=== PATIENT | male | born 1955 | race Caucasian/White ===

== ENCOUNTER 2016-06-02 13:16 | Inpatient (IN) ==
[2016-06-02] MEDS ORDERED: methylPREDNISolone 125 MG/2 ML VIAL IVP ONE (13:20)
[2016-06-02] MEDS ORDERED: Ipratropium/Albuterol Neb 3 ML IH ONE (13:20)
--- NOTE | 2016-06-02 13:23 | Emergency Department Note ---
Disposition Clinical Impression: COPD with acute exacerbation Disposition: Admitted As Inpatient Condition: Fair Referrals: NO,PCP [Primary Care Provider] - Forms: ED Satisfaction Letter Time of Disposition: 15:19 SOB HPI - General Chief Complaint: ED Shortness of Breath/Dyspnea Stated Complaint: KHADAR Time Seen by Provider: 06/02/16 13:19 Source: EMS Mode of arrival: EMS Limitations: no limitations Nursing Notes Reviewed: Yes Vital Signs Reviewed: Yes - History of Present Illness 60-year-old with a history of severe COPD who was discharged from [facility] yesterday after 2-3 day stay for COPD exacerbation comes in with increasing shortness of breath. Squad notes that he was hypoxic very anxious When they picked him up after treatment he did calm down somewhat. Still obviously short of breath. Pt Subjective Complaint: shortness of breath Onset (ago): Just [employer] Context: recent illness Severity: moderate, severe Consistency/Duration: constant Improves with: nothing Worsens with: exertion Known history of: COPD Associated symptoms: Reports: cough, wheezing. Denies: chest pain Treatment prior to arrival: oxygen, bronchodilator Cough present: Yes Cough Description: Involuntary Cough Frequency: Intermittent - Related Data Home Medications Medication Instructions Recorded Confirmed Budesonide/Formoterol 160/4.5 2 puff IH BID 04/07/15 03/01/16 [Symbicort 160/4.5] Roflumilast [Daliresp] 500 mcg PO DAILY 04/07/15 05/29/16 Tiotropium [Spiriva] 1 puff IH DAILY 04/07/15 03/01/16 LORazepam [Ativan] 0.5 mg PO BID 04/26/15 05/29/16 Montelukast [Singulair] 10 mg PO DAILY 04/26/15 05/29/16 Albuterol Sulfate [Ventolin Hfa] 2 puff IH Q4H PRN 03/01/16 05/29/16 Azithromycin [Zithromax] 250 mg PO 3XW MDD 03/01/16 05/29/16Wednesday,wednesday,wednesday Cetirizine HCl [All Day Allergy] 10 mg PO DAILY 03/01/16 03/01/16 Dicyclomine [Bentyl] 10 mg PO QID 03/01/16 03/01/16 Furosemide [Lasix] 20 mg PO DAILY 03/01/16 03/01/16 Hydrochlorothiazide 12.5 mg PO DAILY 03/01/16 05/29/16 Ipratropium [place] 1 spray NS BID 03/01/16 05/29/16 Levalbuterol HCl [Xopenex Neb] 1.25 mg IH Q8H 03/01/16 05/29/16 Potassium Chloride [Klor-Con 10] 10 meq PO BID 03/01/16 05/29/16 Previous Rx's Medication Instructions Recorded Albuterol Neb [Proventil Neb] 2.5 mg IH [id number] 30 Days 04/29/15 Dicyclomine [Bentyl] 10 mg PO QID #20 capsule 03/30/16 Loratadine [Claritin] 5 mg PO DAILY #30 tablet 03/30/16 Benzocaine/Menthol [place] [Cepacol 1 each MM Q2H PRN #1 pack 06/01/16 Sore Throat Lozenge] Chloraseptic [place] [Chloraseptic] 1 spray MM QID PRN #1 bottle 06/01/16 PredniSONE 10 mg PO BIDWM #10 tablet 06/01/16 Tramadol HCl [Ultram] 50 mg PO QID PRN #20 tab 06/01/16 Allergies Allergy/AdvReac Type Severity Reaction Status Date / Time Penicillins [PCN] Allergy Vomiting Verified 03/30/16 15:03 Constitutional: Denies: fever, chills, weakness, weight change Eyes: Denies: eye pain, eye discharge, vision change ENT ED: Denies: ear pain, throat pain, dental pain, hearing loss, epistaxis, congestion, dysphagia Cardiovascular: Denies: chest pain, palpitations, dyspnea on exertion, edema, syncope Respiratory: Reports: cough, dyspnea, wheezes. Denies: hemoptysis, stridor Gastrointestinal: Denies: abdominal pain, nausea, vomiting, diarrhea, constipation, hematemesis, melena, hematochezia Genitourinary: Denies: urgency, dysuria, frequency, hematuria Musculoskeletal: Denies: back pain, neck pain, arthralgia, myalgia Integumentary: Denies: rash, abrasion, lesions Neurological: Denies: headache, weakness, numbness, paresthesias, confusion, abnormal gait, vertigo Psychiatric: Denies: anxiety, depression, suicidal thoughts, homicidal thoughts , auditory hallucinations, visual hallucinations Endocrine: Denies: fatigue Hematological/Lymphatic: Denies: easy bleeding, easy bruising Allergic/Immunologic: Denies: facial swelling, urticaria Past Medical History - Past Medical History Medical history: Reports: arthritis, asthma, COPD, thyroid disease, other Surgical history: Reports: no surgical history Psychiatric history: Reports: anxiety - Social History Smoking Status: Former smoker Smokeless Tobacco Status: No Alcohol use: Reports: none Drug use: Reports: none Physical Exam - General Limitations: no limitations General appearance: alert, in no apparent distress - Head Head exam: atraumatic, normocephalic, normal inspection - Eye Eye exam: Present: normal appearance, PERRL, EOMI - ENT ENT exam: normal exam, normal oropharynx, mucous membranes moist - Neck Neck exam: Present: normal inspection, full ROM, trachea midline - Chest Chest inspection: Present: normal inspection, symmetric chest wall rise - Respiratory Respiratory exam: Present: respiratory distress, wheezes, accessory muscle use, prolonged expiratory phase - Cardiovascular Cardiovascular exam: Present: regular rate, normal rhythm, normal heart sounds - Abdominal Exam Abdominal exam: Present: soft, Non-Tender. Absent: tenderness, distention, guarding, rebound, rigidity - Extremities Exam Extremities exam: Present: normal inspection, full ROM. Absent: tenderness, pedal edema - Expanded Lower Extremity Exam Neurovascular/Tendon exam: Absent: motor deficit, sensory deficit, tendon deficit Gait: not tested/not observed - Back Exam Back exam: Present: normal inspection, full ROM. Absent: tenderness - Neurological Exam Neurological exam: Present: alert, oriented X3 - Psychiatric Psychiatric exam: Present: normal affect, normal mood - Skin Skin exam: Present: warm, dry, intact, normal color Course - Reevaluation(s) Reevaluation #1: 60-year-old with a history of COPD comes in complaining of increasing shortness of breath working pretty hard on arrival. Patient was just discharged from [facility] yesterday. Patient was given breathing treatment and steroids here had some improvement but continued to work pretty hard at breathing. He will admit for COPD exacerbation. Time: 15:20 - Consultations Consultation #1: Discussed with Dr. Gomez, admit. Time: 15:19 Vital Signs Respiratory Rate 13 06/02/16 13:41 O2 Sat by Pulse Oximetry 94 L 06/02/16 13:41 Pulse Rate 97 06/02/16 14:59 Respiratory Rate 20 06/02/16 14:59 Blood Pressure 143/75 06/02/16 14:59 O2 Sat by Pulse Oximetry 96 06/02/16 14:59 Shortness of Breath/Dyspnea - Lab Data Lab results reviewed: Yes I reviewed the patient's lab results. Result diagrams: 06/02/16 13:34 06/02/16 13:34 Lab Results 06/02/16 06/02/16 06/02/16 Range/Units 13:34 13:34 13:34 WBC 8.2 (4.3-11.1) K/mcL RBC 4.30 (4.19-5.50) M/mcL Hgb 13.8 D (12.9-16.9) g/dL Hct 42.5 (37.5-50.1) % MCV 98.8 (83.0-100.0) fL MCH 32.1 (28.0-33.3) pg MCHC 32.5 (31.6-35.5) g/dL RDW 12.9 (11.5-14.5) % Plt Count 264 (140-400) K/mcL MPV 8.8 L (9.4-12.4) fL Immature Gran % 0.4 (0-4) % Seg Neutrophils % 87.6 % Lymphocytes % 8.0 % Monocytes % 3.9 % Eosinophils % 0.0 % Basophils % 0.1 % Neutrophils # 7.2 (1.6-8.9) K/mcL Lymphocytes # 0.7 (0.6-4.6) K/mcL Monocytes # 0.3 (0.0-1.3) K/mcL Eosinophils # 0.0 (0.0-0.6) K/mcL Basophils # 0.0 (0.0-0.2) K/mcL Sodium 140 (136-145) mEq/L Potassium 4.5 (3.5-4.5) mEq/L Chloride 99 (98-109) mEq/L Carbon Dioxide 32 H (19-29) mEq/L BUN 24 (8-26) mg/dL Creatinine 0.82 (0.72-1.25) mg/dL Est GFR ( Amer) > 60 (> 60) Est GFR (Non-Af Amer) > 60 (> 60) BUN/Creatinine Ratio 29 H (6-26) Glucose 147 H (70-99) mg/dL Calculated Osmolality 297 (280-300) Calcium 10.6 (8.6-10.8) mg/dL Troponin I 0.00 (0-0.03) ng/mL B-Natriuretic Peptide (0-100) pg/mL 06/02/16 Range/Units 13:34 WBC (4.3-11.1) K/mcL RBC (4.19-5.50) M/mcL Hgb (12.9-16.9) g/dL Hct (37.5-50.1) % MCV (83.0-100.0) fL MCH (28.0-33.3) pg MCHC (31.6-35.5) g/dL RDW (11.5-14.5) % Plt Count (140-400) K/mcL MPV (9.4-12.4) fL Immature Gran % (0-4) % Seg Neutrophils % % Lymphocytes % % Monocytes % % Eosinophils % % Basophils % % Neutrophils # (1.6-8.9) K/mcL Lymphocytes # (0.6-4.6) K/mcL Monocytes # (0.0-1.3) K/mcL Eosinophils # (0.0-0.6) K/mcL Basophils # (0.0-0.2) K/mcL Sodium (136-145) mEq/L Potassium (3.5-4.5) mEq/L Chloride (98-109) mEq/L Carbon Dioxide (19-29) mEq/L BUN (8-26) mg/dL Creatinine (0.72-1.25) mg/dL Est GFR ( Amer) (> 60) Est GFR (Non-Af Amer) (> 60) BUN/Creatinine Ratio (6-26) Glucose (70-99) mg/dL Calculated Osmolality (280-300) Calcium (8.6-10.8) mg/dL Troponin I (0-0.03) ng/mL B-Natriuretic Peptide 22 (0-100) pg/mL - Radiology Data Radiology results reviewed: Yes I reviewed the patient's radiology results. Chest X-Ray 06/02/16 13:20 IMPRESSION: 1. No active pulmonary disease. 2. COPD. D/ / Alfonzo Becerril MD / Alfonzo Becerril MD Interpreting Provider: Alfonzo Becerril MD - EKG Data EKG attestation: Yes I reviewed and interpreted this EKG. EKG shows normal: Reports: sinus rhythm Rate: Reports: tachycardia Rhythm: Reports: NSR Interpretation: Reports: no acute changes
[2016-06-02 13:41] LABS: Basophils % 0.1 %; Hematocrit 42.5 % (37.5-50.1); Hemoglobin 13.8 g/dL (12.9-16.9); Immature Granulocytes % 0.4 % (0-4); Lymphocytes # 0.7 K/mcL (0.6-4.6); Mean Corpuscular HGB Conc 32.5 g/dL (31.6-35.5); Mean Corpuscular Hemoglobin 32.1 pg (28.0-33.3); Mean Corpuscular Volume 98.8 fL (83.0-100.0); Mean Platelet Volume 8.8 fL (9.4-12.4); Monocytes # 0.3 K/mcL (0.0-1.3); Monocytes % 3.9 %; Neutrophils # 7.2 K/mcL (1.6-8.9); Platelet Count 264 K/mcL (140-400); Red Cell Distribution Width 12.9 % (11.5-14.5); Segmented Neutrophils % 87.6 %
[2016-06-02 13:54] LABS: BUN/Creatinine Ratio 29 (6-26); Blood Urea Nitrogen 24 mg/dL (8-26); Calcium 10.6 mg/dL (8.6-10.8); Carbon Dioxide 32 mEq/L (19-29); Chloride 99 mEq/L (98-109); Glucose 147 mg/dL (70-99); Osmolality,Calculated 297 (280-300); Potassium 4.5 mEq/L (3.5-4.5); Sodium 140 mEq/L (136-145); eGFR For African Americans > 60 (> 60); eGFR For Non-African Americans > 60 (> 60)
[2016-06-02 15:17] LABS: ABG Base Excess 7.1 mEq/L (-2.0 to 3.0); ABG HCO3 33.1 mEQ/L (21-27); ABG Oxygen Saturation 97 % (95-98); ABG PCO2 51 mmHg (35-45); ABG PH 7.42 pH Units (7.32-7.45); ABG PO2 92 mmHg (85-104); ABG TCO2 34.7 mEq/L (20-26)
[2016-06-02 15:18] LABS: Blood Gas FiO2 32 %
[2016-06-02] MEDS ORDERED: Naloxone 0.4 MG/ML INJ IVP PRN (16:24)
[2016-06-02] MEDS ORDERED: Ondansetron 4 MG/2 ML VIAL IVP PRN (16:24)
[2016-06-02] MEDS ORDERED: Albuterol 2.5 MG/3 ML NEBULIZER IH PRN (16:31)
--- NOTE | 2016-06-02 16:44 | Internal Med History&Physical ---
Date of Encounter: 06/02/16 Time of Encounter: 16:00 Assessment and Plan (1) COPD with acute exacerbation Current visit: Yes Status: Acute 1 patient was recently treated for COPD exacerbation-continues to experience shortness of breath on exertion without relief from supplemental oxygen or breathing treatments. We will continue with oxygen to maintain SPO2 greater than 92% 2 we will continue with bronchodilators 3 continue with Solu-Medrol IV to taper 4 we will continue with Singulair/daily resp 5 will have patient follow-up with pulmonary as outpatient and consult as needed (2) Anxiety Current visit: Yes Status: Chronic 1 patient has history of anxiety we will continue with Ativan as needed (3) DVT prophylaxis Current visit: Yes Status: Acute 1TED hose encouraged patient to ambulate Internal Medicine - H&P: HPI Chief complaint: SOB Admitted From: Emergency Dept Plans for Post Hospital Care: Home History of present illness: Mr. Andrea is a 60 year old male with past medical history of end-stage COPD oxygen dependent. According to the patient he was admitted to [facility] due to COPD exacerbation. He was there for approximately 2 days and was discharged home on Wednesday. This a.m. he began to experience shortness of breath on exertion, which was not relieved with reading treatments or increase in oxygen. He also has been experiencing a nonproductive cough denies any wheezing fevers chills nausea vomiting diarrhea. He presented to [facility] ER for evaluation. According to ER records patient was hypoxic upon presentation appeared to be in respiratory distress utilizing accessory muscles. Lab work was obtained which was unremarkable chest x-ray with no acute process he was given breathing treatments as well as steroids IV and his respiratory status improved. He has been admitted for further workup and evaluation. At present time patient is asleep he arouses to verbal stimuli he is alert oriented and appropriate. He does not appear to be in any respiratory distress at this time oxygen saturation 9596% on 4 L nasal cannula. He does have a nonproductive cough and faint expiratory wheezes upon auscultation. At present time he appears to be hemodynamically stable and reviewed this case with Dr Gomez who agrees with plan Past Med Surg Social Fam HX - Past Medical History Medical history: arthritis, asthma, COPD, thyroid disease, other Psychiatric history: anxiety - Past Surgical History Surgical History: no surgical history - Social History Smoking Status: Former smoker Smokeless Tobacco Status: No Alcohol use: none Drug use: none - Family History Mother Adopted: Yes Family Member Ethnicity: Non- Living Status: Hx Family Respiratory Disorders: Yes (EMPHYSEMA) Internal Medicine - H&P: Meds Budesonide/Formoterol 160/4.5 [Symbicort 160/4.5] 2 puff IH BID 04/07/15 [ History] Roflumilast [Daliresp] 500 mcg PO DAILY 04/07/15 [History] Tiotropium [Spiriva] 1 puff IH DAILY 04/07/15 [History] LORazepam [Ativan] 0.5 mg PO BID 04/26/15 [History] Montelukast [Singulair] 10 mg PO DAILY 04/26/15 [History] Albuterol Sulfate [Ventolin Hfa] 2 puff IH Q4H PRN 03/01/16 [History] Azithromycin [Zithromax] 250 mg PO 3XW MDD wednesday,wednesday,wednesday03/01/16 [ History] Cetirizine HCl [All Day Allergy] 10 mg PO DAILY 03/01/16 [History] Hydrochlorothiazide 12.5 mg PO DAILY 03/01/16 [History] Ipratropium [place] 1 spray NS BID 03/01/16 [History] Levalbuterol HCl [Xopenex Neb] 1.25 mg IH Q8H 03/01/16 [History] Potassium Chloride [Klor-Con 10] 10 meq PO BID 03/01/16 [History] Dicyclomine [Bentyl] 10 mg PO QID #20 capsule 03/30/16 [Rx] Benzocaine/Menthol [place]armen [Cepacol Sore Throat Lozenge] 1 each MM Q2H PRN #1 pack 06/01/16 [Rx] Chloraseptic [place] [Chloraseptic] 1 spray MM QID PRN #1 bottle 06/01/16 [Rx] PredniSONE 10 mg PO BIDWM #10 tablet 06/01/16 [Rx] Tramadol HCl [Ultram] 50 mg PO QID PRN #20 tab 06/01/16 [Rx] Albuterol Neb [Proventil Neb] 2.5 mg IH [id number] PRN 06/02/16 [History] Diazepam [Valium] 5 mg PO BID PRN 06/02/16 [History] Meloxicam [Mobic] 15 mg PO DAILY 06/02/16 [History] Metoclopramide [Reglan] 10 mg PO TID 06/02/16 [History] Allergies Penicillins [PCN] Allergy (Verified 03/30/16 15:03) Vomiting All Systems PM: A 10-system review of systems was performed and is negative for pertinent findings except as documented above in the HPI. - Constitutional Constitutional: no chills, no fever(s), no night sweats - EENT Nose, mouth and throat: sore throat - Cardiovascular Cardiovascular ROS IM: no chest pain, no diaphoresis, no dyspnea, no lightheadedness, no palpitations, no syncope - Respiratory Respiratory: cough, dyspnea on exertion - Gastrointestinal Gastrointestinal: no abdominal pain, no diarrhea, no hematemesis, no hematochezia, no melena, no nausea, no vomiting - Musculoskeletal Musculoskeletal ROS IM: no numbness, no tingling - Integumentary Integumentary IM: no rash, no unusual bruising - Neurological Neurological ROS: no confusion, no convulsions, no focal weakness, no numbness, no tingling, no tremor(s) - Constitutional Vitals: Temp Pulse Resp BP Pulse Ox 97.2 F L 97 20 143/75 96 06/02/16 15:30 06/02/16 15:30 06/02/16 15:30 06/02/16 15:30 06/02/16 15:30 General appearance: Present: A&O X 3, underweight, answers questions appropriately - Head Head exam: Present: atraumatic, normocephalic - Eye Eye exam: Present: PERRL, conjuntiva pink, sclera anicteric Pupils: Present: PERRL - Neck Neck exam general surgery: Present: supple, trachea midline. Absent: lymphadenopathy - Respiratory Respiratory exam: Present: wheezes. Absent: accessory muscle use, rales, rhonchi - Cardiovascular Cardiovascular exam: Present: RRR, +S1, +S2. Absent: diastolic murmur, gallop, rubs, systolic murmur - GI/Abdominal GI/Abdominal exam: Present: normal bowel sounds, soft, no peritoneal signs. Absent: distended, tenderness - Extremities Exam Extremities exam: Present: pedal edema, warm, radial pulses palpable and symetrical. Absent: calf tenderness, cyanotic Additional comments: Edema to lower extremities bilaterally - Neurological Exam Neurological exam: Present: CN II-XII intact, oriented X3, no focal deficits. Absent: pronater drift, facial droop, speech deficit - Skin Skin exam: Present: dry, intact Internal Med - H&P Results - Labs CBC & Chem 7: 06/02/16 13:34 06/02/16 13:34 - Diagnostic Studies Chest x-ray Additional comments: Per radiology reading no active pulmonary disease
[2016-06-02] MEDS ORDERED: traMADol 50 MG TABLET PO PRN (16:51)
[2016-06-02] MEDS ORDERED: diazePAM 5 MG TABLET PO PRN (16:51)
[2016-06-02] MEDS ORDERED: Ipratropium/Albuterol Neb 3 ML IH SCH (17:00)
[2016-06-02] MEDS ORDERED: Levalbuterol Neb 1.25 MG/3 ML IH SCH (17:15)
[2016-06-02] MEDS: methylPREDNISolone 125 MG/2 ML VIAL IVP SCH (17:41)
[2016-06-02] MEDS: Budesonide/Formoterol 160/4.5 MDI IH SCH (20:13)
[2016-06-02] MEDS: Acetaminophen 325 MG TABLET PO PRN (20:17)
[2016-06-02] MEDS: Mag Hydrox/Al Hydrox/Simeth 30 ML UDC PO PRN (21:37)
[2016-06-02] MEDS: *HR* LORazepam 0.5 MG TABLET PO PRN (21:37)
[2016-06-03] MEDS: methylPREDNISolone 125 MG/2 ML VIAL IVP SCH ×4 (00:49→18:05)
[2016-06-03 04:23] LABS: Basophils % 0.2 %; Hematocrit 37.5 % (37.5-50.1); Hemoglobin 12.6 g/dL (12.9-16.9); Immature Granulocytes % 0.4 % (0-4); Lymphocytes # 1.1 K/mcL (0.6-4.6); Lymphocytes % 19.1 %; Mean Corpuscular HGB Conc 33.6 g/dL (31.6-35.5); Mean Corpuscular Hemoglobin 32.7 pg (28.0-33.3); Mean Corpuscular Volume 97.4 fL (83.0-100.0); Mean Platelet Volume 9.2 fL (9.4-12.4); Monocytes # 0.3 K/mcL (0.0-1.3); Monocytes % 4.7 %; Neutrophils # 4.2 K/mcL (1.6-8.9); Platelet Count 262 K/mcL (140-400); Red Blood Count 3.85 M/mcL (4.19-5.50); Red Cell Distribution Width 12.6 % (11.5-14.5); Segmented Neutrophils % 75.6 %
[2016-06-03 04:57] LABS: Platelet Estimate Normal (Normal); Reactive Lymphocytes Present (Not Present)
[2016-06-03 05:01] LABS: BUN/Creatinine Ratio 31 (6-26); Blood Urea Nitrogen 23 mg/dL (8-26); Calcium 10.1 mg/dL (8.6-10.8); Carbon Dioxide 32 mEq/L (19-29); Chloride 102 mEq/L (98-109); Glucose 131 mg/dL (70-99); Magnesium 2.2 mg/dL (1.6-2.6); Osmolality,Calculated 297 (280-300); Potassium 4.6 mEq/L (3.5-4.5); Sodium 141 mEq/L (136-145); eGFR For African Americans > 60 (> 60); eGFR For Non-African Americans > 60 (> 60)
[2016-06-03] MEDS: Budesonide/Formoterol 160/4.5 MDI IH SCH ×2 (07:57→22:59)
[2016-06-03] MEDS: Tiotropium 18 MCG inhalation IH SCH (07:57)
[2016-06-03] MEDS: Levalbuterol Neb 1.25 MG/3 ML IH SCH ×3 (07:58→22:59)
[2016-06-03] MEDS ORDERED: DALIRESP 500 MCG PO SCH (09:00)
[2016-06-03] MEDS: *HR* LORazepam 0.5 MG TABLET PO PRN ×2 (09:19→18:03)
[2016-06-03] MEDS: Loratadine 10 MG TABLET PO SCH (09:19)
--- NOTE | 2016-06-03 10:20 | Internal Med Progress Note ---
Date of Encounter: 06/03/16 Time of Encounter: 08:45 - Assessment and plan (1) COPD with acute exacerbation Current Visit: Yes Status: Acute Assessment and plan: Patient with chronic moderate respiratory distress. He is able to speak without stopping for breath. He appears end-stage COPD. His aeration is poor. Unfortunately, patient is unwilling/unable to speak about his goals/plans of care. He states he thinks he is going to get a lung transplant, but unable to state when or where. Unlikely that he'd be a candidate for surgery. He denies pain; will continue to treat for COPD exacerbation. Chest x-ray unremarkable for acute processes. Will add in BiPap as needed. ITS Impressions Chest X-Ray 06/02/16 13:20 IMPRESSION: 1. No active pulmonary disease. 2. COPD. D/ / Alfonzo Becerril MD / Alfonzo Becerril MD Interpreting Provider: Alfonzo Becerril MD (2) Pulmonary cachexia due to COPD Current Visit: Yes Status: Acute Assessment and plan: Acute on chronic. Patient is end-stage COPD. We will bring nutrition on board. Patient drinks Ensure drinks at home. He is amenable to trying Magic cups. He does not want to have any appetite stimulants because he states that when he eats quickly, his belly fills up with air, and then his respiratory effort increases. (3) Illiterate Current Visit: Yes Status: Chronic Assessment and plan: Patient stating he is unable to read or write. His home medications have been continued based upon her current list of his medications however patient is refusing to take most of the medications stating he does not take them at home. We will continue to educate the patient. Patient stated he prefers to use pictures when possible. (4) DVT prophylaxis Current Visit: Yes Status: Acute Assessment and plan: Subcutaneous Lovenox ordered (5) Anxiety Current Visit: Yes Status: Chronic Assessment and plan: Patient's anxiety appears to be manifested as continually speaking. The patient does not stop speaking often, and appears anxious at times. Continue home dosing of lorazepam as needed. May consider scheduling, will discuss with the patient (6) Acute and chronic respiratory failure Current Visit: No Status: Chronic Assessment and plan: Patient unclear in describing how much oxygen he is on at home. He states he titrates it down to 1.5 at times but other times he is up to 3-4 L. He is currently on 3 L continuously. Moderate increased work of breathing, will add BiPAP as needed. Patient appears end-stage COPD. (7) Tobacco abuse Current Visit: No Status: Chronic Assessment and plan: Patient stated he stopped smoking a while ago but unable to quantify - Subjective Interval history: Patient seen and examined. On examination, patient sitting upright in his chair. Patient quite verbose. He states he has not had an appetite over the past week. He states he continues to be more short of breath than usual. He denies pain at this time. - Constitutional Vitals: Temp Pulse Resp BP Pulse Ox 98.6 F 95 17 123/79 93 L 06/03/16 07:09 06/03/16 07:09 06/03/16 07:09 06/03/16 07:09 06/03/16 07:09 General appearance: Present: cachectic, mild distress (moderate), A&O X 3, pleasant, underweight, answers questions appropriately - Head Head exam: Present: atraumatic, normocephalic - Eye Eye exam: Present: PERRL, conjuntiva pink, sclera anicteric Pupils: Present: PERRL - Neck Neck exam general surgery: Present: supple, trachea midline. Absent: lymphadenopathy - Respiratory Respiratory exam: Present: accessory muscle use, decreased breath sounds, prolonged expiratory phase, respiratory distress. Absent: rales, rhonchi, wheezes - Cardiovascular Cardiovascular exam: Present: RRR, +S1, +S2. Absent: diastolic murmur, gallop, rubs, systolic murmur - GI/Abdominal GI/Abdominal exam: Present: normal bowel sounds, soft, no peritoneal signs. Absent: distended, tenderness - Extremities Exam Extremities exam: Present: warm, radial pulses palpable and symetrical. Absent : calf tenderness, cyanotic, pedal edema - Neurological Exam Neurological exam: Present: alert, CN II-XII intact, normal gait, oriented X3, no focal deficits, strengths equal and symetr throughout. Absent: pronater drift, facial droop, speech deficit - Skin Skin exam: Present: dry, intact, pallor, warm Internal Medicine: Result - Labs CBC & Chem 7: 06/03/16 03:35 06/03/16 03:35 Labs: Short CBC 06/03/16 Range/Units 03:35 WBC 5.5 (4.3-11.1) K/mcL Hgb 12.6 L (12.9-16.9) g/dL Hct 37.5 (37.5-50.1) % Plt Count 262 (140-400) K/mcL Neutrophils # 4.2 (1.6-8.9) K/mcL BMP 06/03/16 03:35 Sodium 141 Potassium 4.6 H Chloride 102 Carbon Dioxide 32 H BUN 23 Creatinine 0.74 Glucose 131 H Calcium 10.1 - ABG Interpretation ABG results: ABG ABG pH 7.42 pH Units (7.32-7.45) 06/02/16 15:10 ABG pCO2 51 mmHg (35-45) H 06/02/16 15:10 ABG pO2 92 mmHg (85-104) 06/02/16 15:10 ABG O2 Saturation 97 % (95-98) 06/02/16 15:10 Consult Discharge Plan - Plan
[2016-06-03] MEDS ORDERED: *HR* LORazepam 2 MG/ML VIAL IVP PRN (12:22)
[2016-06-03] MEDS ORDERED: Azithromycin 250 MG TABLET PO SCH (14:30)
[2016-06-03] MEDS: Mag Hydrox/Al Hydrox/Simeth 30 ML UDC PO PRN (14:47)
[2016-06-03] MEDS: Saline Nasal Spray 44 ML BOTTLE NS PRN (16:21)
[2016-06-04] MEDS: methylPREDNISolone 125 MG/2 ML VIAL IVP SCH ×3 (00:31→13:10)
[2016-06-04 06:52] LABS: BUN/Creatinine Ratio 32 (6-26); Blood Urea Nitrogen 25 mg/dL (8-26); Calcium 9.9 mg/dL (8.6-10.8); Carbon Dioxide 29 mEq/L (19-29); Chloride 105 mEq/L (98-109); Glucose 156 mg/dL (70-99); Osmolality,Calculated 302 (280-300); Potassium 4.5 mEq/L (3.5-4.5); Sodium 142 mEq/L (136-145); eGFR For African Americans > 60 (> 60); eGFR For Non-African Americans > 60 (> 60)
[2016-06-04] MEDS ORDERED: *HR* Enoxaparin 40 MG/0.4 ML SYRINGE SQ SCH (07:00)
[2016-06-04] MEDS: Levalbuterol Neb 1.25 MG/3 ML IH SCH ×2 (07:34→16:26)
[2016-06-04] MEDS: Tiotropium 18 MCG inhalation IH SCH (07:34)
[2016-06-04] MEDS: Budesonide/Formoterol 160/4.5 MDI IH SCH (07:34)
[2016-06-04] MEDS: Loratadine 10 MG TABLET PO SCH (07:58)
[2016-06-04] MEDS: *HR* LORazepam 0.5 MG TABLET PO PRN ×2 (08:03→16:27)
[2016-06-04] MEDS: Mag Hydrox/Al Hydrox/Simeth 30 ML UDC PO PRN ×2 (08:03→15:05)
[2016-06-04 11:50] VITALS: BP 145/87
[2016-06-04] MEDS ORDERED: Fluticasone Propionate Nasal 50 MCG/SPRAY BOTTLE NS SCH (12:00)
[2016-06-04] MEDS: Saline Nasal Spray 44 ML BOTTLE NS PRN (12:04)
--- NOTE | 2016-06-04 12:46 | Internal Med Progress Note ---
Date of Encounter: 06/04/16 Time of Encounter: 09:00 - Assessment and plan (1) COPD with acute exacerbation Current Visit: Yes Status: Acute Assessment and plan: On examination, patient's respirations are now mildly labored and his aeration though poor, is improved from yesterday. He is able to speak without stopping for breath. He appears end-stage COPD. Unfortunately, patient is unwilling/ unable to speak about his goals/plans of care. He states he thinks he is going to get a lung transplant, but unable to state when or where. Unlikely that he' d be a candidate for surgery. He denies pain; will continue to treat for COPD exacerbation. Chest x-ray unremarkable for acute processes. Will add in BiPap as needed. ITS Impressions Chest X-Ray 06/02/16 13:20 IMPRESSION: 1. No active pulmonary disease. 2. COPD. D/ / Alfonzo Becerril MD / Alfonzo Becerril MD Interpreting Provider: Alfonzo Becerril MD (2) Pulmonary cachexia due to COPD Current Visit: Yes Status: Acute Assessment and plan: Acute on chronic. Patient is end-stage COPD. Nutrition on board. Patient drinks Ensure drinks at home. He is amenable to trying Magic cups. He does not want to have any appetite stimulants because he states that when he eats quickly, his belly fills up with air, and then his respiratory effort increases. (3) Illiterate Current Visit: Yes Status: Chronic Assessment and plan: Patient stating he is unable to read or write. His home medications have been continued based upon her current list of his medications however patient is refusing to take most of the medications stating he does not take them at home. We will continue to educate the patient. Patient stated he prefers to use pictures when possible. The biggest issue is that our medications, though the same, may not be the same color and shape of the pills he takes at home. He definitely has some underlying paranoia, and we are trying to help understand that he is getting the same medications. (4) DVT prophylaxis Current Visit: Yes Status: Acute Assessment and plan: Subcutaneous Lovenox ordered (5) Anxiety Current Visit: Yes Status: Chronic Assessment and plan: Patient's anxiety appears to be manifested as continually speaking. The patient does not stop speaking often, and appears anxious at times. Increased his home dosing of lorazepam and he is slightly more calm today. (6) Acute and chronic respiratory failure Current Visit: No Status: Chronic Assessment and plan: Patient unclear in describing how much oxygen he is on at home. He states he titrates it down to 1.5 at times but other times he is up to 3-4 L. He is currently on 3 L continuously. Mild increased work of breathing- improved from yesterday. Continue BiPAP as needed. Patient appears end-stage COPD. (7) Tobacco abuse Current Visit: No Status: Chronic Assessment and plan: Patient stated he stopped smoking a while ago but unable to quantify (8) Protein-calorie malnutrition, moderate Current Visit: Yes Status: Acute Assessment and plan: Nutrition on board. BMI 18. - Subjective Interval history: Patient seen and examined. On examination, patient sitting upright in his chair. Patient again quite verbose. He states that he feels better today but is not back to his baseline. He feels that he may need one more day inapteint. He also feels that he is getting "real good" care here and states he is getting better. - Constitutional Vitals: Temp Pulse Resp BP Pulse Ox 98.4 F 106 17 145/87 93 L 06/04/16 11:49 06/04/16 11:49 06/04/16 11:49 06/04/16 11:49 06/04/16 11:49 General appearance: Present: cachectic, mild distress, A&O X 3, pleasant, underweight, answers questions appropriately - Head Head exam: Present: atraumatic, normocephalic - Eye Eye exam: Present: PERRL, conjuntiva pink, sclera anicteric Pupils: Present: PERRL - Neck Neck exam general surgery: Present: supple, trachea midline. Absent: lymphadenopathy - Respiratory Respiratory exam: Present: accessory muscle use, decreased breath sounds, prolonged expiratory phase, respiratory distress (mild). Absent: rales, rhonchi , wheezes - Cardiovascular Cardiovascular exam: Present: RRR, +S1, +S2. Absent: diastolic murmur, gallop, rubs, systolic murmur - GI/Abdominal GI/Abdominal exam: Present: normal bowel sounds, soft, no peritoneal signs. Absent: distended, tenderness - Extremities Exam Extremities exam: Present: warm, radial pulses palpable and symetrical. Absent : calf tenderness, cyanotic, pedal edema - Neurological Exam Neurological exam: Present: alert, CN II-XII intact, oriented X3, no focal deficits, strengths equal and symetr throughout. Absent: pronater drift, facial droop, speech deficit - Skin Skin exam: Present: dry, intact, pallor, warm Internal Medicine: Result - Labs CBC & Chem 7: 06/03/16 03:35 06/04/16 03:37 - ABG Interpretation ABG results: ABG ABG pH 7.42 pH Units (7.32-7.45) 06/02/16 15:10 ABG pCO2 51 mmHg (35-45) H 06/02/16 15:10 ABG pO2 92 mmHg (85-104) 06/02/16 15:10 ABG O2 Saturation 97 % (95-98) 06/02/16 15:10 Consult Discharge Plan - Plan Referrals: NO,PCP [Primary Care Provider] -
[2016-06-04] MEDS: Acetaminophen 325 MG TABLET PO PRN (13:10)
--- NOTE | 2016-06-04 15:07 | Discharge Summary ---
Date of Encounter: 06/04/16 Time of Encounter: 14:30 - Discharge Diagnosis (1) COPD with acute exacerbation Priority: Primary Status: Resolved Comments: On day of discharge, patient initially stated he needed one more day however as the day wore on, patient stating his back to his baseline regarding respiratory status. Follow-up outpatient. (2) Pulmonary cachexia due to COPD Priority: Primary Status: Acute (3) Illiterate Priority: Secondary Status: Chronic (4) DVT prophylaxis Priority: Primary Status: Acute Comments: Subcutaneous Lovenox while admitted (5) Anxiety Priority: Secondary Status: Chronic Comments: During this admission, the patient's anxiety was poorly controlled and he would perseverate and continually question staph. His lorazepam dosage was increased , follow-up outpatient (6) Acute and chronic respiratory failure Priority: Secondary Status: Chronic Comments: No increased need for oxygenation, follow-up outpatient (7) Tobacco abuse Priority: Secondary Status: Chronic Comments: Patient is a former smoker. He states he stopped smoking a long time ago but unable to quantify (8) Protein-calorie malnutrition, moderate Priority: Primary Status: Acute Comments: Continue Ensure supplements 3 times a day and Magic cup Twice a day - Discharge Medications Prescriptions: LORazepam [Ativan] 1 mg PO BID PRN #14 tablet PRN Reason: Anxiety Lactose-Reduced Food [Ensure High Protein] 1 bottle PO TID #90 can PredniSONE 10 mg PO DAILY #41 tablet Home Medications: Budesonide/Formoterol 160/4.5 [Symbicort 160/4.5] 2 puff IH BID 04/07/15 [ History] Roflumilast [Daliresp] 500 mcg PO DAILY 04/07/15 [History] Tiotropium [Spiriva] 1 puff IH DAILY 04/07/15 [History] Montelukast [Singulair] 10 mg PO DAILY 04/26/15 [History] Albuterol Sulfate [Ventolin Hfa] 2 puff IH Q4H PRN 03/01/16 [History] Azithromycin [Zithromax] 250 mg PO MOWEFR 03/01/16 [History] Cetirizine HCl [All Day Allergy] 10 mg PO DAILY 03/01/16 [History] Hydrochlorothiazide 12.5 mg PO Q48H 03/01/16 [History] Ipratropium [place] 1 spray NS BID 03/01/16 [History] Levalbuterol HCl [Xopenex Neb] 1.25 mg IH Q8H 03/01/16 [History] Potassium Chloride [Klor-Con 10] 10 meq PO BID 03/01/16 [History] Dicyclomine [Bentyl] 10 mg PO QID #20 capsule 03/30/16 [Rx] Benzocaine/Menthol [place] [Cepacol Sore Throat Lozenge] 1 each MM Q2H PRN #1 pack 06/01/16 [Rx] Chloraseptic [place] [Chloraseptic] 1 spray MM QID PRN #1 bottle 06/01/16 [Rx] Tramadol HCl [Ultram] 50 mg PO QID PRN #20 tab 06/01/16 [Rx] Albuterol Neb [Proventil Neb] 2.5 mg IH [id number] PRN 06/02/16 [History] Diazepam [Valium] 5 mg PO BID PRN 06/02/16 [History] Meloxicam [Mobic] 15 mg PO DAILY 06/02/16 [History] Metoclopramide [Reglan] 10 mg PO TID 06/02/16 [History] LORazepam [Ativan] 1 mg PO BID PRN #14 tablet 06/04/16 [Rx] Lactose-Reduced Food [Ensure High Protein] 1 bottle PO TID #90 can 06/04/16 [Rx] PredniSONE 10 mg PO DAILY #41 tablet 06/04/16 [Rx] Allergies/Adverse Reactions: Allergies Penicillins [PCN] Allergy (Verified 03/30/16 15:03) Vomiting Date of admission: 06/04/16 07:34 Primary care physician: PCP NO Consults: 06/02/16 17:53 Consult to Professor Of History [CONS] Routine Reason for SW Consult: reports aide services but does not know the company, Home O2 thru [employer] but does not know the orders for use. 06/03/16 10:26 Consult to Nutrition [CONS] Routine Comment: end stage copd. illiterate. ensure; magic cups? Consulting Provider: NUTRITION Reason for Dietary Consult: Supplemental Nutrition 06/03/16 10:39 Consult to Nurse Navigator [CONS] Routine Comment: Discharging clinician: Niurka Muniz Anticipated date of discharge: 06/04/16 - Patient Status Disposition: Home, Self-Care Condition: Fair Functional capacity at discharge: independent ambulation Overall status at discharge: patient is progressing back to baseline - Discharge Instructions Follow Up With: Myrna Heck MD [Partnered Physician] - [facility] & [facility] Crowder [Provider Group] Additional Instructions: Follow-up with primary care provider in one to 2 weeks, follow-up with pulmonology as needed - Diet and Activity Activity: increase activity as tolerated, wear oxygen at all times Diet: regular diet (with ensure TIDWM) Hospital course: Mr. Andrea is a 60 year old male with past medical history of end-stage COPD on 2-3 L continuously at home. Patient was admitted to [facility] due to a COPD exacerbation and was admitted for 2 days then subsequently discharged on Wednesday. On Wednesday, he presented to [facility] chief complaint of shortness of breath on exertion that was not relieved with his breathing treatments or by increasing his oxygen. Patient also endorsed a nonproductive cough. He denied fevers, chills, nausea vomiting or diarrhea. Patient was hypoxic upon presentation to the emergency department. Workup was otherwise unremarkable. Chest x-ray negative for acute processes. Patient was admitted to the hospitalist service for further evaluation and management. He was admitted and observed over the course of 3 days and treated for COPD exacerbation. On day of discharge, patient stating he felt as if he was back to his baseline regarding respiratory status. His anxiety was uncontrolled during this admission and he was noted to be continually speaking and continually perseverating on several issues. His lorazepam dosage was increased which helped him relax. Aeration remained poor on day of discharge however was improved from when he was admitted. Of note, patient is illiterate and refused to take several medications well admitted because they were not the same color, shape, size as his pills at home. Attempted to educate on differences between manufacturers however the patient continued to refuse most medications. Nutrition was brought on board during this admission he started him on Ensure supplements. Recommend follow-up outpatient for possible addition of Magic cups twice a day. He was discharged home in stable condition with close outpatient follow-up recommended. ITS Impressions Chest X-Ray 06/02/16 13:20 IMPRESSION: 1. No active pulmonary disease. 2. COPD. D/ / Alfonzo Becerril MD / Alfonzo Becerril MD Interpreting Provider: Alfonzo Becerril MD - Time Spent with Patient Total time spent providing and/or coordinating discharge services: - Constitutional Vitals: Temp Pulse Resp BP Pulse Ox 98.4 F 106 17 145/87 93 L 06/04/16 11:49 06/04/16 11:49 06/04/16 11:49 06/04/16 11:49 06/04/16 11:49 General appearance: Present: cachectic, mild distress (Baseline), A&O X 3, pleasant, underweight, answers questions appropriately - Head Head exam: Present: atraumatic, normocephalic - Eye Eye exam: Present: PERRL, conjuntiva pink, sclera anicteric Pupils: Present: PERRL - Neck Neck exam general surgery: Present: supple, trachea midline. Absent: lymphadenopathy - Respiratory Respiratory exam: Present: accessory muscle use, decreased breath sounds, prolonged expiratory phase, respiratory distress. Absent: rales, rhonchi, wheezes - Cardiovascular Cardiovascular exam: Present: RRR, +S1, +S2. Absent: diastolic murmur, gallop, rubs, systolic murmur - GI/Abdominal GI/Abdominal exam: Present: normal bowel sounds, soft, no peritoneal signs. Absent: distended, tenderness - Extremities Exam Extremities exam: Present: warm, radial pulses palpable and symetrical. Absent : calf tenderness, cyanotic, pedal edema - Neurological Exam Neurological exam: Present: alert, CN II-XII intact, normal gait, oriented X3, no focal deficits, strengths equal and symetr throughout. Absent: pronater drift, facial droop, speech deficit - Psychiatric Psychiatric exam: Present: anxious. Absent: suicidal ideation - Expanded Psychiatric Exam Focused psych exam: Present: paranoid, perseverating, pressured speech, psychomotor agitation, restlessness - Skin Skin exam: Present: dry, intact, normal color, warm
--- NOTE | 2016-06-05 16:10 | Electrocardiograph Report ---
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
== END 2016-06-04 16:27 | disposition home or self-care (01) | DRG 190 ==
LOC: 3BNU 13:16 → EMEROO 13:16 → 3BNU 17:14
PROVIDERS: ADMIT Nurse Practitioner Family; ATTEND Nurse Practitioner Family

== ENCOUNTER 2018-02-26 02:45 | Inpatient (IN) ==
[2018-02-26] MEDS ORDERED: *HR* LORazepam 2 MG/ML VIAL IVP ONE (04:39)
[2018-02-26] MEDS ORDERED: *HR* LORazepam 2 MG/ML VIAL ONE (04:41)
[2018-02-26 04:57] LABS: ABG Base Excess -2 mEq/L (-2 to 3); ABG HCO3 24 mEq/L (21-27); ABG Oxygen Saturation 94 % (95-98); ABG PCO2 47 mmHg (35-45); ABG PH 7.32 pH Units (7.32-7.45); ABG PO2 75 mmHg (85-104); ABG TCO2 26 mEq/L (20-26)
[2018-02-26] MEDS ORDERED: Naloxone 0.4 MG/ML INJ IVP PRN (05:03)
[2018-02-26] MEDS ORDERED: Acetaminophen 325 MG TABLET PO PRN (05:03)
[2018-02-26] MEDS ORDERED: Ipratropium/Albuterol Neb 3 ML ONE (05:05)
[2018-02-26] MEDS ORDERED: Artificial Tears SOLN 15 ML BOTTLE BOTH EYES PRN (05:29)
[2018-02-26] MEDS ORDERED: Dextrose Gel 15 GM/37.5 ML TUBE PO PRN ×2 (05:38)
[2018-02-26] MEDS ORDERED: *HR* Dextrose 50 % in Water (Syg) 50 ML SYRINGE IVP PRN (05:38)
[2018-02-26] MEDS ORDERED: D5% in Water 1,000 ML IVC PRN (05:38)
--- NOTE | 2018-02-26 05:38 | Event Note ---
Date of Encounter: 02/26/18 Time of Encounter: 05:31 Patient was seen and examined. I agree with the H&P as written by the resident physician. Briefly patient is a 62-year-old male who has a known history of O2 dependent COPD, thyroid disease, arthritis who presented to us as a transfer from [place] ED for COPD exacerbation. The patient was in significant distress upon transfer admitted him in the ICU and we had to intubate him today. He was transferred to us on BiPAP. He was very tachypneic and tachycardic upon transfer to us. He refused to put his BiPAP back on as he was not comfortable despite our recommendations. His CODE STATUS remained full code throughout this whole ordeal and eventually he agreed to intubation. The patient had presented there with dyspnea on exertion mostly. He was seen there at [place] also yesterday and was discharged home as they thought he had some anxiety component to his respiratory distress. This time around when he came back he was significantly wheezy and was hypoxic in the 70s whenever he ambulated. DM IV Solu-Medrol, nebs, Ativan 1 mg 2. He had laboratory workup done there which showed a lactic acid of 5.7, troponin of 0.05. WBC count was 13.0. EKG showed no acute ST or T-wave changes. Had an ABG with a pH of 7.16 and a PCO2 of 68. By the time he arrived here we had repeated his ABG and showed pH of 7.32, PCO2 47, PO2 of 75 and bicarbonate 24. Due to his significant respiratory distress we elected to intubate the patient. GEN: Significant distress CVS: RRR. S1, S2, No m/r/g RESP: Significantly diminished with scattered wheezes ABD: Soft, NT, ND, +BS EXT: No edema. 2+ DP, No rashes NEURO: Nonfocal We admitted the patient to the ICU Status post intubation. We will get chest x-ray and an ABG Propofol for sedation Repeat basic labs including lactic acid. Elevated troponin's are likely due to hypoxia but we will trend cardiac enzymes Consult the surgical instrument technician Scheduled IV steroids, nebulizers, IV Levaquin. IV PPI DVT prophylaxis Critical care time spent >60 minutes
[2018-02-26 05:49] LABS: Hematocrit 38.8 % (37.5-50.1); Mean Corpuscular HGB Conc 30.9 g/dL (31.6-35.5); Mean Corpuscular Hemoglobin 31.1 pg (28.0-33.3); Mean Corpuscular Volume 100.5 fL (83.0-100.0); Mean Platelet Volume 9.1 fL (9.4-12.4); Platelet Count 218 K/mcL (140-400); Red Blood Count 3.86 M/mcL (4.19-5.50); Red Cell Distribution Width 13.6 % (11.5-14.5)
--- NOTE | 2018-02-26 06:06 | Internal Med History&Physical ---
Date of Encounter: 02/26/18 Time of Encounter: 05:46 Internal Medicine - H&P: HPI Chief complaint: shortness of breath Admitted From: Hospital to Hospital Transfer Plans for Post Hospital Care: Home History of present illness: Mr. Andrea is a 62 year old male with past medical history of COPD (wears 2L of oxygen at home), tobacco abuse, hypertension, GERD. Patient was transferred to [facility] from [facility] emergency department earlier in the evening for COPD exacerbation requiring urgent intubation. He initially presented to [facility] emergency department with chief complaint of shortness of breath with exertion and anxiety. He went to [facility] ED the night prior requesting benzodiazepines and was discharged home. He reports that his shortness of breath is extreme with exertion and he starts feeling significant palpitations with exertion. He denies relief with oxygen and aerosol use at home. In [facility] emergency department, patient was noted to decompensate after standing up from the bedside. It is documented that His heart rate went up to 120s and oxygen saturation decreased to 77%. Vitals at [facility] ED were as follows: amateur 99.7, heart rate 114, respirations 35, blood pressure 13 9/72, oxygen saturation 94% on 3 L Labs at [facility] ED were as follows: CBC showed WBC 13, hemoglobin 11.7, hematocrit 35.6 INR 1.1 initial troponin was 0.05. ABG showed pH 7.16, CO2 68, O2 97, HCO3 24 urine drug screen unremarkable, urinalysis unremarkable. CTA of the chest was done at [facility] ED showing severe lower lobe predominant emphysema, no evidence of central pulmonary embolism, no acute abnormality. At [facility] ED, he received 2 L fluid boluses, to breathing treatments, 1 mg Ativan, 125 mg methylprednisolone. There was concern for COPD exacerbation and patient was transferred to [place] with BIPAP mask. After arriving to [facility], patient was anxious, tachycardic, shaking, had abdominal breathing and clearly appeared to be in respiratory distress. However, he refused to put BiPAP on stating that he does not needed. he repeatedly said "i don't need it i know my body." When asked about code status, he states that he would want to be full code but does not think he will need intubation. After a rrival to ICU, patient's oxygen saturation's continued to decline and was exacerbated by his respiratory distress and severe anxiety. He was then urgently intubated. 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 Psychiatric history: anxiety - Past Surgical History Surgical History: no surgical history Additional surgical history: RIGHT WRIST - Social History Smoking Status: Former smoker Smokeless Tobacco Status: No Alcohol use: none Drug use: none - Family History Mother History Unknown: Yes Adopted: Yes Family Member Ethnicity: Non- Living Status: Hx Family Respiratory Disorders: Yes (EMPHYSEMA) Internal Medicine - H&P: Meds Budesonide/Formoterol 160/4.5 [Symbicort 160/4.5] 2 puff IH BID 04/07/15 [History] Roflumilast [Daliresp] 500 mcg PO DAILY 04/07/15 [History] Tiotropium [Spiriva] 1 puff IH DAILY 04/07/15 [History] Montelukast [Singulair] 10 mg PO DAILY 04/26/15 [History] Albuterol Sulfate [Ventolin Hfa] 2 puff IH Q4H PRN 03/01/16 [History] Azithromycin [Zithromax] 250 mg PO MOWEFR 03/01/16 [History] Cetirizine HCl [All Day Allergy] 10 mg PO DAILY 03/01/16 [History] Ipratropium [place] 1 spray NS BID 03/01/16 [History] Levalbuterol HCl [Xopenex Neb] 1.25 mg IH Q8H 03/01/16 [History] hydroCHLOROthiazide [Hydrochlorothiazide] 12.5 mg PO Q48H 03/01/16 [History] Albuterol Neb [Proventil Neb] 2.5 mg IH [id number] PRN 06/02/16 [History] Metoclopramide [Reglan] 10 mg PO TID 06/02/16 [History] Lactose-Reduced Food [Ensure High Protein] 1 bottle PO TID #90 can 06/04/16 [Rx] Lactobacillus [Culturelle] 1 each PO BID #10 cap.sprink 04/27/17 [Rx] Metoprolol Succinate 12.5 mg PO DAILY #15 tab.er.24h 04/27/17 [Rx] predniSONE [PredniSONE] 10 mg PO BIDWM #10 tablet 04/27/17 [Rx] Allergy/AdvReac Type Severity Reaction Status Date / Time Penicillins [PCN] Allergy Vomiting Verified 02/25/18 04:43 ROS unobtainable: due to endotracheal tube All Systems PM: A 10-system review of systems was performed and is negative for pertinent findings except as documented above in the HPI. - Constitutional Vitals: Temp Pulse Resp BP Pulse Ox 98.9 F 130 26 191/90 83 02/26/18 05:30 02/26/18 05:30 02/26/18 05:30 02/26/18 05:30 02/26/18 05:30 General appearance: Present: A&O X 3, underweight Exam: alert and oriented x3, appears to be in respiratory distress, has abdominal breathing, appears cachectic. overall appears very unkempt. - Head Head exam: Present: atraumatic, normocephalic - ENT ENT exam: Present: mucous membranes moist - Neck Neck exam general surgery: Present: supple, trachea midline - Respiratory Respiratory exam: Present: accessory muscle use, decreased breath sounds, prolonged expiratory phase, rales, stridor, wheezes, tachypnea - Cardiovascular Cardiovascular exam: Present: +S2, tachycardia - GI/Abdominal GI/Abdominal exam: Present: firm, no peritoneal signs. Absent: distended, guarding, hernia, tenderness - Extremities Exam Extremities exam: Present: radial pulses palpable and symmetrical. Absent: cyanotic, mottling, pedal edema, tenderness - Neurological Exam Neurological exam: Present: alert, oriented X3. Absent: facial droop, speech deficit - Psychiatric Psychiatric exam: Present: anxious Internal Med - H&P Results - ABG Interpretation ABG results: 02/26/18 04:54 ABG pH 7.32 D ABG pCO2 47 H D ABG pO2 75 L ABG HCO3 24 ABG Total CO2 26 ABG O2 Saturation 94 L ABG Base Excess -2 - Assessment and plan (1) Acute on chronic respiratory failure with hypoxia and hypercapnia Current Visit: Yes Status: Acute Assessment and plan: 62-year-old male and transferred from [facility] ED with concerns for acute respiratory distress, COPD exacerbation. He reported increased shortness of breath with exertion. Upon arrival to [place], he was in acute respiratory distress and refused to wear BIPAP mask stating he does not need it. After transfer to ICU, he continued to show sings of respiratory distress and was urgently intubated. CTA showed no evidence of PE. ABG from [facility] ED showed pH 7.16, CO2 68 Etiology likely multifactorial in setting of secondary to COPD exacerbation, recently stopping benzodiazepines, increased anxiety, increased work of breathing, non compliance with BIPAP. Patient did meet SIRS criteria with tachycardia, tachypnea, elevated WBC. This is likely secondary to increased work of breathing, anxiety, COPD exacerbation. Do not suspect sepsis at this ti me. continue to monitor. Plan: Levaquin day 1 scheduled bronchodilators IV steroids continue with mechanical ventilation and sedation CPAP trial as tolerated (2) Acute exacerbation of chronic obstructive pulmonary disease (COPD) Current Visit: No Status: Acute Assessment and plan: Plan as above (3) Tobacco abuse Current Visit: No Status: Chronic Assessment and plan: Smoking cessation advised prior to intubation (4) Hypertension Current Visit: Yes Status: Acute Assessment and plan: Resume home medications once verified. Qualifiers: Hypertension type: essential hypertension Qualified Code(s): I10 - Essential (primary) hypertension (5) GERD (gastroesophageal reflux disease) Current Visit: Yes Status: Acute Qualifiers: Esophagitis presence: esophagitis presence not specified Qualified Code(s): K21.9 - Gastro-esophageal reflux disease without esophagitis (6) Elevated troponin Current Visit: Yes Status: Acute Assessment and plan: troponins 0.05 x2 suspect secondary to demand ischemia in setting of COPD exacerbation. EKG revealed, no ischemic changes appreciated. Continue to monitor (7) DVT prophylaxis Current Visit: Yes Status: Acute Assessment and plan: Heparin SQ Protonix for G.I. prophylaxis - Time Spent With Patient Total time spent is greater than 50% in coordination of care (as documented) at patient's floor/unit and/or counseling patient:
[2018-02-26] MEDS: FentaNYL (PF) 1,000 MCG in 0.9 % Sodium Chloride 80 ML IVC SCH (06:08)
[2018-02-26 06:10] LABS: Alanine Aminotransferase 18 Units/L (7-52); Albumin 3.8 g/dL (3.5-5.7); Albumin/Globulin Ratio 1.7 (1.1-2.2); Alkaline Phosphatase 42 Units/L (34-104); Aspartate Amino Transferase 39 Units/L (13-39); BUN/Creatinine Ratio 18 (6-26); Bilirubin,Total 0.3 mg/dL (0.3-1.0); Blood Urea Nitrogen 14 mg/dL (8-23); Calcium 9.4 mg/dL (8.6-10.3); Carbon Dioxide 21 mEq/L (23-29); Chloride 108 mEq/L (98-107); Globulin 2.3 g/dL (2.4-3.5); Glucose 132 mg/dL (70-105); Magnesium 2.2 mg/dL (1.6-2.6); Osmolality,Calculated 290 (280-300); Phosphorous 3.4 mg/dL (2.7-4.5); Potassium 4.7 mEq/L (3.5-5.1); Sodium 139 mEq/L (136-145); Total Protein 6.1 g/dL (6.4-8.9); Troponin I 0.05 ng/mL (< 0.04); eGFR For Non-African Americans > 60 (> 60)
[2018-02-26] MEDS: MethylPREDNISolone 40 MG/ML VIAL IVP SCH ×4 (06:12→23:44)
[2018-02-26] MEDS: Insulin LISPRO 300 UNITS/3 ML VIAL SQ SCH ×4 (06:12→23:44)
[2018-02-26] MEDS: Pantoprazole 40 MG VIAL IVP SCH ×2 (06:13→11:23)
[2018-02-26] MEDS: *HR* Heparin 5,000 UNIT/ML VIAL SQ SCH ×2 (06:20→18:25)
--- NOTE | 2018-02-26 06:37 | Procedure Note ---
Date of procedure: 02/26/18 Pre-op diagnosis: Hypoxic respiratory failure with hypercapnia Post-op diagnosis: same Procedure: Endotracheal Intubation Date: 02/26/18 Time: 0509 Indication: acute on chronic hypoxic respiratory failure with hypercapnia Resident: Cruzito Mendez DO Attending: Dr. Diann MD A time-out was completed verifying correct patient, procedure, site, positioning, and special equipment if applicable. The patient was placed in a flat position. Sedation was obtained using Versed 6mg, and additionally with Etomidate 40mg. The patient was easily ventilated using an ambu bag. The MAC 4 BLADE was used and inserted into the oropharynx, and first attempt at intubation by Dr. Mendez was unsuccessful. Mono, Respiratory therapist tried to visualize vocal cords with MAC 4 blade but was unsuccessful. Third attempt at intubation was made by mono using Glidescope, at which time there was a Grade 1 view of the vocal cords. A 7.5-arabic endotracheal tube was inserted and visualized going through the vocal cords. The stylette was removed. Colorimetric change was visualized on the CO2 meter. Breath sounds were heard in both lung [place] equally. The endotracheal tube was placed at 23 cm, measured at the teeth. Attending physician Dr. Tidwell was present for the entire procedure. A chest x-ray was ordered to assess for pneumothorax and verify endotrachealtube placement. Estimated Blood Loss: minimal The patient tolerated the procedure well and there were no complications. Anesthesia: IV sedation Surgeon: Jose Juan Rayo Was there an home health assistant present: Yes Tin Pot Operator: Cruzito Mendez Estimated blood loss (cc): 0 Specimen: none Pathology: none sent Condition: critical Disposition: ICU
[2018-02-26 07:36] LABS: VBG Ionized Calcium 1.32 mmol/L (1.15-1.35)
[2018-02-26] MEDS: Ipratropium/Albuterol Neb 3 ML IH SCH ×5 (07:40→23:46)
[2018-02-26] MEDS: Chlorhexidine Rinse 15 ML MOUTHWASH MM SCH ×2 (07:54→20:32)
[2018-02-26] MEDS: Artificial Tears SOLN 15 ML BOTTLE BOTH EYES SCH ×5 (07:54→23:44)
[2018-02-26] MEDS: Levofloxacin 500 MG/100 ML 500 MG/100 ML BAG IVPB SCH (07:54)
--- NOTE | 2018-02-26 08:27 | Pulmonology Consult Note ---
<Samantha Escobedo M - Last Filed: 02/26/18 10:21> Date of Encounter: 02/26/18 Medications and Allergies Budesonide/Formoterol 160/4.5 [Symbicort 160/4.5] 2 puff IH BID 04/07/15 [History] Roflumilast [Daliresp] 500 mcg PO DAILY 04/07/15 [History] Tiotropium [Spiriva] 1 puff IH DAILY 04/07/15 [History] Montelukast [Singulair] 10 mg PO DAILY 04/26/15 [History] Albuterol Sulfate [Ventolin Hfa] 2 puff IH Q4H PRN 03/01/16 [History] Ipratropium [place] 1 spray NS BID 03/01/16 [History] Levalbuterol HCl [Xopenex Neb] 1.25 mg IH Q8H 03/01/16 [History] hydroCHLOROthiazide [Hydrochlorothiazide] 12.5 mg PO Q48H 03/01/16 [History] Albuterol Neb [Proventil Neb] 2.5 mg IH [id number] PRN 06/02/16 [History] Metoclopramide [Reglan] 10 mg PO TID 06/02/16 [History] Lactose-Reduced Food [Ensure High Protein] 1 bottle PO TID #90 can 06/04/16 [Rx] Lactobacillus [Culturelle] 1 each PO BID #10 cap.sprink 04/27/17 [Rx] Metoprolol Succinate 12.5 mg PO DAILY #15 tab.er.24h 04/27/17 [Rx] Cetirizine HCl [24Hour Allergy] 10 mg PO DAILY 02/26/18 [History] predniSONE [PredniSONE] 10 mg PO DAILY 02/26/18 [History] Allergy/AdvReac Type Severity Reaction Status Date / Time Penicillins [PCN] Allergy Vomiting Verified 02/25/18 04:43 All Systems: The remainder of the systems were reviewed and are negative Physical Examination Vital Signs: Vital Signs, Last 4 Hours Pulse Resp BP Pulse Ox 02/26/18 09:31 13 108/67 97 02/26/18 09:00 73 12 88/57 99 02/26/18 08:00 73 12 99/64 99 02/26/18 07:40 16 95/63 98 02/26/18 07:36 74 02/26/18 07:21 73 16 93/64 98 Ventilator Settings Ventilator Settings: Ventilator Settings, Last 8 Hours Ventilator Tidal Volume 450 Setting Ventilator Tidal Volume 450 Setting Ventilator Tidal Volume 450 Setting Ventilator Tidal Volume 450 Setting Ventilator Tidal Volume 400 Setting Ventilator Tidal Volume 400 Setting Ventilator Tidal Volume 400 Setting Ventilator Respiratory Rate 12 Setting Ventilator Respiratory Rate 12 Setting Ventilator Respiratory Rate 12 Setting Ventilator Respiratory Rate 12 Setting Ventilator Respiratory Rate 16 Setting Ventilator Respiratory Rate 16 Setting Ventilator Respiratory Rate 16 Setting Actual Respiratory Rate 17 Actual Respiratory Rate 12 Actual Respiratory Rate 12 Actual Respiratory Rate 12 Actual Respiratory Rate 16 Actual Respiratory Rate 19 Actual Respiratory Rate 17 Positive End Expiratory 5 Pressure Positive End Expiratory 5 Pressure Positive End Expiratory 5 Pressure Positive End Expiratory 5 Pressure Positive End Expiratory 5 Pressure Positive End Expiratory 5 Pressure Positive End Expiratory 5 Pressure Peak Inspiratory Airway 22 Pressure Peak Inspiratory Airway 22 Pressure Peak Inspiratory Airway 25 Pressure Peak Inspiratory Airway 21 Pressure Peak Inspiratory Airway 20 Pressure Peak Inspiratory Airway 19 Pressure Peak Inspiratory Airway 18 Pressure Results - Laboratory Findings CBC and BMP: 02/26/18 05:29 02/26/18 05:29 ABG ABG pH 7.32 pH Units (7.32-7.45) D 02/26/18 04:54 ABG pCO2 47 mmHg (35-45) H D 02/26/18 04:54 ABG pO2 75 mmHg (85-104) L 02/26/18 04:54 ABG O2 Saturation 94 % (95-98) L 02/26/18 04:54 Abnormal lab findings: Abnormal lab results WBC 14.9 K/mcL (4.3-11.1) H 02/26/18 05:29 RBC 3.86 M/mcL (4.19-5.50) L 02/26/18 05:29 Hgb 12.0 g/dL (12.9-16.9) L 02/26/18 05:29 MCV 100.5 fL (83.0-100.0) H 02/26/18 05:29 MCHC 30.9 g/dL (31.6-35.5) L 02/26/18 05:29 MPV 9.1 fL (9.4-12.4) L 02/26/18 05:29 ABG pCO2 47 mmHg (35-45) H D 02/26/18 04:54 ABG pO2 75 mmHg (85-104) L 02/26/18 04:54 ABG O2 Saturation 94 % (95-98) L 02/26/18 04:54 Chloride 108 mEq/L (98-107) H 02/26/18 05:29 Carbon Dioxide 21 mEq/L (23-29) L 02/26/18 05:29 Glucose 132 mg/dL (70-105) H 02/26/18 05:29 POC Glucose 116 mg/dL (70-99) H 02/26/18 05:07 Lactic Acid 5.4 mmol/L (0.5-2.2) H* 02/26/18 06:05 Troponin I 0.05 ng/mL (< 0.04) H* 02/26/18 05:29 Serum Total Protein 6.1 g/dL (6.4-8.9) L 02/26/18 05:29 Globulin 2.3 g/dL (2.4-3.5) L 02/26/18 05:29 - Clinical Findings Intake & Output: Intake & Output 02/25/18 02/26/18 02/26/18 23:59 07:59 15:59 Intake Total 0 / 0 Balance 0 / 0 Weight 57.3 kg Consult Discharge Plan - Plan Referrals: NONE,PCP [Primary Care Provider] - - Attending Attestation I examined this patient and my medical decision-making was reviewed with the Resident Physician. I agree with the documented findings, disposition and treatment plan as described except to the extent set forth below. Patient seen and examined. Labs, radiology, chart personally reviewed. 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 At this time there is evidence of minimal intrinsic PEEP and then changes was keeping minute ventilation and reviewed ABG. Lowering respiratory rate to help intrinsic PEEP and FiO2 to keep SPO2 around 90%. Continue systemic steroids with bronchodilators and empiric antibiotic. I suspect patient might be difficult to wean off from invasive mechanical ventilation due to his underlying lung disease. Cardiovascular: stable GI: Nutrition per dietary and GI prophylaxis per routine. Start to feed. Heme: DVT prophylaxis per routine ID: Continue antibiotics and plan to de-escalation Renal; urine out put and renal funtion reviewed Endorcine: blood glucose is monitored Lines: all lines checked and no evidence of infections Skin: skin care to prevent pressure ulcers per nursing routine care I spent 40 min of Critical Care time with this patient. It involved decision making of high complexity to assess, manipulate, and support vital organ system failure and/or to prevent further life threatening deterioration of the patient's condition. The time involved in the performance of separately reportable procedures was not counted toward critical care time. <Richard Biggs - Last Filed: 02/26/18 14:03> Date of Encounter: 02/26/18 Time of Encounter: 07:30 Assessment and Plan (1) Acute on chronic respiratory failure with hypoxia and hypercapnia Current Visit: Yes Status: Acute Transferred from [place] ED for acute respiratory distress with COPD exacerbation Upon arrival at [facility] pt was refusing BiPAP, SpO2 decreased and he was urgently intubated. CTA negative for PE CXR negative for acute abnormalities, no obvious consolidations or infiltrates afebrile tachycardic prior to intubation tachypnic prior to intubation WBC mildly elevated at 14.9, likely reactive Suspicious of sepsis low and no source of infection at this time Initial lactic acid was 5.4, but repeat decreased to 1.8 Elevated trops likely 2/2 demand ischemia with respiratory distress SIRS picture likely 2/2 respiratory distress and COPD exacerbation Continue Levaquin (Day 1) Continue Solumedrol 40mg q6hr Continue scheduled duonebs and symbicort Continue mechanical ventilation at this time, will consult nutrition to begin feeds since pt will likely be difficult to wean off ventilator with severe emphysematous disease (2) Acute exacerbation of chronic obstructive pulmonary disease (COPD) Current Visit: Yes Status: Acute plan as above (3) Lactic acidosis Current Visit: No Status: Acute plan as above (4) Elevated troponin Current Visit: Yes Status: Acute plan as above (5) Hypertension Current Visit: Yes Status: Acute plan as above Qualifiers: Hypertension type: essential hypertension Qualified Code(s): I10 - Essential (primary) hypertension (6) Tobacco abuse Current Visit: Yes Status: Chronic Chronic issue Pt was educated on the importance of smoking cessation prior to intubation (7) DVT prophylaxis Current Visit: Yes Status: Acute SQ heparin GI prophylaxis with protonix History of Present Illness Consult date: 02/26/18 Reason for consult: COPD Chief complaint: Acute on chronic respiratory failure History of present illness: Mr. Andrea is a 62 year old male with past medical history of COPD (on 2lpm O2 at home), tobacco abuse, hypertension, GERD. Patient was transferred to [facility] from [place] [facility] earlier in the evening for COPD exacerbation requiring urgent intubation. He initially presented to [place] with chief complaint of shortness of breath with exertion and anxiety. He went to [place] ED the night prior requesting benzodiazepines and was discharged home. He reports that his shortness of breath is extreme with exertion and he starts feeling significant palpitations with exertion. He denies relief with oxygen and aerosol use at home. In [place] ED, patient was noted to decompensate after standing up from the bedside. It is documented that His heart rate went up to 120s and oxygen saturation decreased to 77%. He was subsequently transferred to [facility] with BiPAP, however upon arrival the pt refused BiPAP stating "I don't need it. I know my body". His SpO2 continued to decline and he was then urgently intubated. Pt seen and examined at bedside. Remains intubated comfortably. Not arousable at this time. 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 Psychiatric history: anxiety - Past Surgical History Surgical History: no surgical history Additional surgical history: RIGHT WRIST - Social History Smoking Status: Former smoker Smokeless Tobacco Status: No Alcohol use: none Drug use: none - Family History Mother History Unknown: Yes Adopted: Yes Family Member Ethnicity: Non- Living Status: Hx Family Respiratory Disorders: Yes (EMPHYSEMA) ROS unobtainable: due to endotracheal tube, due to mental status All Systems: The remainder of the systems were reviewed and are negative Physical Examination Vital Signs: Vital Signs, Last 4 Hours Temp Pulse Resp BP Pulse Ox 02/26/18 08:00 73 12 99/64 99 02/26/18 07:40 16 95/63 98 02/26/18 07:36 74 02/26/18 07:21 73 16 93/64 98 02/26/18 06:00 98.9 F 92 19 113/64 96 02/26/18 05:30 98.9 F 130 26 191/90 94 02/26/18 04:43 98.4 F 125 28 130/72 93 General appearance: no acute distress, comatose Eyes: nonicteric ENT: oropharynx dry Neck: supple Effort: mildly labored Inspection: normal Auscultation: bilateral: diminished breath sounds Percussion: bilateral: not dull Cardiovascular: regular rate and rhythm Gastrointestinal: normoactive bowel sounds, soft, non-tender, non-distended Integumentary: normal Extremities: no cyanosis, no edema, no clubbing, pink and warm, pulses normal Musculoskeletal: no deformities unable to assess due to mental status Ventilator Settings Ventilator Settings: Ventilator Settings, Last 8 Hours Ventilator Tidal Volume 450 Setting Ventilator Tidal Volume 450 Setting Ventilator Tidal Volume 400 Setting Ventilator Tidal Volume 400 Setting Ventilator Tidal Volume 400 Setting Ventilator Respiratory Rate 12 Setting Ventilator Respiratory Rate 12 Setting Ventilator Respiratory Rate 16 Setting Ventilator Respiratory Rate 16 Setting Ventilator Respiratory Rate 16 Setting Actual Respiratory Rate 12 Actual Respiratory Rate 12 Actual Respiratory Rate 16 Actual Respiratory Rate 19 Actual Respiratory Rate 17 Positive End Expiratory 5 Pressure Positive End Expiratory 5 Pressure Positive End Expiratory 5 Pressure Positive End Expiratory 5 Pressure Positive End Expiratory 5 Pressure Peak Inspiratory Airway 25 Pressure Peak Inspiratory Airway 21 Pressure Peak Inspiratory Airway 20 Pressure Peak Inspiratory Airway 19 Pressure Peak Inspiratory Airway 18 Pressure Results - Laboratory Findings CBC and BMP: 02/26/18 05:29 02/26/18 05:29 ABG ABG pH 7.32 pH Units (7.32-7.45) D 02/26/18 04:54 ABG pCO2 47 mmHg (35-45) H D 02/26/18 04:54 ABG pO2 75 mmHg (85-104) L 02/26/18 04:54 ABG O2 Saturation 94 % (95-98) L 02/26/18 04:54 Abnormal lab findings: Abnormal lab results WBC 14.9 K/mcL (4.3-11.1) H 02/26/18 05:29 RBC 3.86 M/mcL (4.19-5.50) L 02/26/18 05:29 Hgb 12.0 g/dL (12.9-16.9) L 02/26/18 05:29 MCV 100.5 fL (83.0-100.0) H 02/26/18 05:29 MCHC 30.9 g/dL (31.6-35.5) L 02/26/18 05:29 MPV 9.1 fL (9.4-12.4) L 02/26/18 05:29 ABG pCO2 47 mmHg (35-45) H D 02/26/18 04:54 ABG pO2 75 mmHg (85-104) L 02/26/18 04:54 ABG O2 Saturation 94 % (95-98) L 02/26/18 04:54 Chloride 108 mEq/L (98-107) H 02/26/18 05:29 Carbon Dioxide 21 mEq/L (23-29) L 02/26/18 05:29 Glucose 132 mg/dL (70-105) H 02/26/18 05:29 POC Glucose 116 mg/dL (70-99) H 02/26/18 05:07 Lactic Acid 5.4 mmol/L (0.5-2.2) H* 02/26/18 06:05 Troponin I 0.05 ng/mL (< 0.04) H* 02/26/18 05:29 Serum Total Protein 6.1 g/dL (6.4-8.9) L 02/26/18 05:29 Globulin 2.3 g/dL (2.4-3.5) L 02/26/18 05:29 - Clinical Findings Intake & Output: Intake & Output 02/25/18 02/26/18 02/26/18 23:59 07:59 15:59 Intake Total Balance Weight 57.3 kg
[2018-02-26] MEDS: Budesonide/Formoterol 160/4.5 1 PUFF INH IH SCH ×2 (09:31→19:57)
[2018-02-26] MEDS ORDERED: *HR* Midazolam HCl 2 MG/2 ML VIAL IV ONE (09:45)
[2018-02-26] MEDS ORDERED: *HR* Etomidate 40 MG/20 ML VIAL IVP ONE (09:45)
[2018-02-26] MEDS ORDERED: *HR* Midazolam HCl 5 MG/5 ML VIAL IVP ONE (09:45)
--- NOTE | 2018-02-26 11:20 | Event Note ---
Date of Encounter: 02/26/18 Time of Encounter: 09:00 Mr Andrea has pmhx copd on home o2, htn, gerd, thyroid disease and was transferred from [facility] for suspected acute copd exacerbation. CTA revealed severe LL emphysema , no pe and no acute pulmonary process per report. trop elevation 0.05 on multiple checks with no reported ekg changes and suspected deman ischemia. Arrived on Bipap and in severe resp distress. He was intubated this morning. acute on chronic respiratory failure- s/p intubation, levaquin, steroids, pulm critical care consult and management Hospitalist service will sign off at this time while patient under care of critical care/pulm service in ICU
[2018-02-27] MEDS: Ipratropium/Albuterol Neb 3 ML IH SCH ×7 (03:43→23:20)
[2018-02-27] MEDS: Artificial Tears SOLN 15 ML BOTTLE BOTH EYES SCH ×5 (04:26→23:58)
[2018-02-27 05:07] LABS: ABG Base Excess 6 mEq/L (-2 to 3); ABG HCO3 33 mEq/L (21-27); ABG Oxygen Saturation 95 % (95-98); ABG PCO2 60 mmHg (35-45); ABG PH 7.35 pH Units (7.32-7.45); ABG PO2 81 mmHg (85-104); ABG TCO2 35 mEq/L (20-26); Blood Gas Modality ASSIST CONTROL; Blood Gas PEEP 5 cm H2O; Blood Gas Respiration Rate 12; Blood Gas VT 450 cc
[2018-02-27 05:33] LABS: Basophils % 0.1 %; Eosinophils % 0.1 %; Hematocrit 32.7 % (37.5-50.1); Hemoglobin 10.6 g/dL (12.9-16.9); Immature Granulocytes % 0.7 % (0-4); Lymphocytes # 0.4 K/mcL (0.6-4.6); Lymphocytes % 3.6 %; Mean Corpuscular HGB Conc 32.4 g/dL (31.6-35.5); Mean Corpuscular Hemoglobin 31.5 pg (28.0-33.3); Mean Corpuscular Volume 97.3 fL (83.0-100.0); Mean Platelet Volume 9.2 fL (9.4-12.4); Monocytes # 0.6 K/mcL (0.0-1.3); Monocytes % 4.8 %; Platelet Count 183 K/mcL (140-400); Red Blood Count 3.36 M/mcL (4.19-5.50); Red Cell Distribution Width 13.7 % (11.5-14.5); Segmented Neutrophils % 90.7 %
[2018-02-27 05:52] LABS: Alanine Aminotransferase 14 Units/L (7-52); Albumin 3.3 g/dL (3.5-5.7); Albumin/Globulin Ratio 1.6 (1.1-2.2); Alkaline Phosphatase 36 Units/L (34-104); Aspartate Amino Transferase 23 Units/L (13-39); BUN/Creatinine Ratio 31 (6-26); Bilirubin,Total 0.2 mg/dL (0.3-1.0); Blood Urea Nitrogen 25 mg/dL (8-23); Calcium 9.6 mg/dL (8.6-10.3); Carbon Dioxide 27 mEq/L (23-29); Chloride 106 mEq/L (98-107); Globulin 2.1 g/dL (2.4-3.5); Glucose 125 mg/dL (70-105); Magnesium 2.3 mg/dL (1.6-2.6); Osmolality,Calculated 296 (280-300); Phosphorous 2.6 mg/dL (2.7-4.5); Potassium 4.4 mEq/L (3.5-5.1); Sodium 140 mEq/L (136-145); Total Protein 5.4 g/dL (6.4-8.9); eGFR For Non-African Americans > 60 (> 60)
[2018-02-27] MEDS: *HR* Heparin 5,000 UNIT/ML VIAL SQ SCH ×2 (06:10→18:13)
[2018-02-27] MEDS: MethylPREDNISolone 40 MG/ML VIAL IVP SCH ×3 (06:10→18:13)
[2018-02-27] MEDS: Pantoprazole 40 MG VIAL IVP SCH ×2 (06:10→09:19)
[2018-02-27] MEDS: Insulin LISPRO 300 UNITS/3 ML VIAL SQ SCH ×3 (06:12→18:13)
--- NOTE | 2018-02-27 06:56 | Pulmonology Progress Note ---
Addendum entered and electronically signed by Mary Armas 02/27/18 13:10: Spoke with admitting Hospitalist Dr. Gonzalez who has accepted the patient's transfer for tomorrow. Original Note: <Mary Armas - Last Filed: 02/27/18 11:34> Date of Encounter: 02/27/18 Time of Encounter: 06:56 Assessment and Plan (1) Acute on chronic respiratory failure with hypoxia and hypercapnia Current Visit: Yes Status: Acute Transferred from [place] ED yesterday for acute respiratory distress with COPD exacerbation Upon arrival at [facility] pt was refusing BiPAP, SpO2 decreased and he was urgently intubated. CTA negative for PE CXR negative for acute abnormalities, no obvious consolidations or infiltrates afebrile tachycardic prior to intubation tachypnic prior to intubation WBC mildly elevated at 14.9 - decreased today to 12.2 Suspicious of sepsis low and no source of infection at this time Initial lactic acid was 5.4, but repeat decreased to 1.8 Elevated trops 0.05, 0.04 likely secondary to demand ischemia with respiratory distress SIRS picture likely secondary to respiratory distress and COPD exacerbation Continue Levaquin day 2 Continue Solumedrol 40mg q6hr Continue scheduled duonebs and symbicort Extubated today and currently tolerating NC 02/26 BC positive for Strep - awaiting sensitivities. On Levaquin day 2 (2) Acute exacerbation of chronic obstructive airways disease Current Visit: No Status: Acute Plan as #1 above (3) Lactic acidosis Current Visit: No Status: Acute Initial Lactic 5.4 Repeat 1.8 Plan as #1 above (4) Elevated troponin Current Visit: Yes Status: Acute Slightly elevated at 0.05, 0.04 Likely secondary to demand ischemia Plan as #1 above (5) Hypertension Current Visit: Yes Status: Acute Plan as #1 above Qualifiers: Hypertension type: essential hypertension Qualified Code(s): I10 - Essential (primary) hypertension (6) Tobacco abuse Current Visit: Yes Status: Chronic Chronic issue Pt educated on smoking cessation prior to intubation and again post intubation (7) DVT prophylaxis Current Visit: Yes Status: Acute SQ Heparin Subjective Principal diagnosis: COPD exacerbation Interval history: Pt did well overnight without any acute problems. Look to CPAP trial today and extubate. 0820 - pt tolerating extubation and NC at this time Objective PUL Vital signs: Last Vital Signs Temp 98.5 F 02/27/18 04:00 Pulse 84 02/27/18 06:00 Resp 17 02/27/18 06:15 BP 92/54 02/27/18 06:15 Pulse Ox 100 02/27/18 06:15 General appearance: alert Eyes: nonicteric ENT: oropharynx dry Effort: mildly labored Auscultation: bilateral: diminished breath sounds Cardiovascular: regular rate and rhythm Gastrointestinal: soft, non-tender, non-distended Integumentary: normal Extremities: no edema, no clubbing, pulses normal Musculoskeletal: no deformities normal mental status, non-focal exam, pupils equal and round mood appropriate Ventilator Settings Ventilator Settings: Ventilator Settings, Last 8 Hours Ventilator Tidal Volume 450 Setting Ventilator Tidal Volume 450 Setting Ventilator Tidal Volume 450 Setting Ventilator Tidal Volume 450 Setting Ventilator Tidal Volume 450 Setting Ventilator Tidal Volume 450 Setting Ventilator Tidal Volume 450 Setting Ventilator Tidal Volume 450 Setting Ventilator Tidal Volume 450 Setting Ventilator Tidal Volume 450 Setting Ventilator Tidal Volume 450 Setting Ventilator Tidal Volume 450 Setting Ventilator Tidal Volume 450 Setting Ventilator Respiratory Rate 12 Setting Ventilator Respiratory Rate 12 Setting Ventilator Respiratory Rate 12 Setting Ventilator Respiratory Rate 12 Setting Ventilator Respiratory Rate 12 Setting Ventilator Respiratory Rate 12 Setting Ventilator Respiratory Rate 12 Setting Ventilator Respiratory Rate 12 Setting Ventilator Respiratory Rate 12 Setting Ventilator Respiratory Rate 12 Setting Ventilator Respiratory Rate 12 Setting Ventilator Respiratory Rate 12 Setting Ventilator Respiratory Rate 12 Setting Actual Respiratory Rate 17 Actual Respiratory Rate 13 Actual Respiratory Rate 16 Actual Respiratory Rate 12 Actual Respiratory Rate 12 Actual Respiratory Rate 12 Actual Respiratory Rate 12 Actual Respiratory Rate 12 Actual Respiratory Rate 12 Actual Respiratory Rate 12 Actual Respiratory Rate 12 Actual Respiratory Rate 12 Positive End Expiratory 5 Pressure Positive End Expiratory 5 Pressure Positive End Expiratory 5 Pressure Positive End Expiratory 5 Pressure Positive End Expiratory 5 Pressure Positive End Expiratory 5 Pressure Positive End Expiratory 5 Pressure Positive End Expiratory 5 Pressure Positive End Expiratory 5 Pressure Positive End Expiratory 5 Pressure Positive End Expiratory 5 Pressure Positive End Expiratory 5 Pressure Positive End Expiratory 5 Pressure Peak Inspiratory Airway 27 Pressure Peak Inspiratory Airway 25 Pressure Peak Inspiratory Airway 26 Pressure Peak Inspiratory Airway 26 Pressure Peak Inspiratory Airway 27 Pressure Peak Inspiratory Airway 26 Pressure Peak Inspiratory Airway 24 Pressure Peak Inspiratory Airway 25 Pressure Peak Inspiratory Airway 24 Pressure Peak Inspiratory Airway 25 Pressure Peak Inspiratory Airway 25 Pressure Peak Inspiratory Airway 21 Pressure Results - Laboratory Findings CBC and BMP: 02/27/18 05:22 02/27/18 05:22 ABG ABG pH 7.35 pH Units (7.32-7.45) 02/27/18 05:03 ABG pCO2 60 mmHg (35-45) H 02/27/18 05:03 ABG pO2 81 mmHg (85-104) L 02/27/18 05:03 ABG O2 Saturation 95 % (95-98) 02/27/18 05:03 Abnormal lab findings: Abnormal lab results WBC 12.2 K/mcL (4.3-11.1) H 02/27/18 05:22 RBC 3.36 M/mcL (4.19-5.50) L 02/27/18 05:22 Hgb 10.6 g/dL (12.9-16.9) L 02/27/18 05:22 Hct 32.7 % (37.5-50.1) L 02/27/18 05:22 MPV 9.2 fL (9.4-12.4) L 02/27/18 05:22 Neutrophils # 11.0 K/mcL (1.6-8.9) H 02/27/18 05:22 Lymphocytes # 0.4 K/mcL (0.6-4.6) L 02/27/18 05:22 ABG pCO2 60 mmHg (35-45) H 02/27/18 05:03 ABG pO2 81 mmHg (85-104) L 02/27/18 05:03 ABG HCO3 33 mEq/L (21-27) H 02/27/18 05:03 ABG Total CO2 35 mEq/L (20-26) H 02/27/18 05:03 ABG Base Excess 6 mEq/L (-2 to 3) H 02/27/18 05:03 BUN 25 mg/dL (8-23) H 02/27/18 05:22 BUN/Creatinine Ratio 31 (6-26) H 02/27/18 05:22 Glucose 125 mg/dL (70-105) H 02/27/18 05:22 POC Glucose 128 mg/dL (70-99) H 02/26/18 23:25 Phosphorus 2.6 mg/dL (2.7-4.5) L 02/27/18 05:22 Total Bilirubin 0.2 mg/dL (0.3-1.0) L 02/27/18 05:22 Troponin I 0.04 ng/mL (< 0.04) H* 02/26/18 11:47 Serum Total Protein 5.4 g/dL (6.4-8.9) L 02/27/18 05:22 Albumin 3.3 g/dL (3.5-5.7) L 02/27/18 05:22 Globulin 2.1 g/dL (2.4-3.5) L 02/27/18 05:22 - Microbiology Findings Microbiology Findings: Microbiology, Last 48 Hours 02/26/18 06:05 Blood Culture - Preliminary Peripheral Venipuncture Culture is incubating and being continuously monitored for growth. Final report to follow. - Clinical Findings Intake & Output: Intake & Output 02/26/18 02/26/18 02/27/18 15:59 23:59 07:59 Intake Total 120 / 120 127 / 127 208 / 208 Output Total 450 / 450 400 / 400 170 / 170 Balance -330 / -330 -273 / -273 38 / 38 Weight 59.9 kg Consult Discharge Plan - Plan Referrals: NONE,PCP [Primary Care Provider] - <Samantha Escobedo - Last Filed: 02/27/18 18:50> Date of Encounter: 02/27/18 Objective PUL Vital signs: Last Vital Signs Temp 98.5 F 02/27/18 04:00 Pulse 84 02/27/18 06:00 Resp 29 02/27/18 07:52 BP 104/61 02/27/18 07:18 Pulse Ox 97 02/27/18 07:52 Ventilator Settings Ventilator Settings: Ventilator Settings, Last 8 Hours Ventilator Tidal Volume 450 Setting Ventilator Tidal Volume 450 Setting Ventilator Tidal Volume 450 Setting Ventilator Tidal Volume 450 Setting Ventilator Tidal Volume 450 Setting Ventilator Tidal Volume 450 Setting Ventilator Tidal Volume 450 Setting Ventilator Tidal Volume 450 Setting Ventilator Tidal Volume 450 Setting Ventilator Tidal Volume 450 Setting Ventilator Respiratory Rate 12 Setting Ventilator Respiratory Rate 12 Setting Ventilator Respiratory Rate 12 Setting Ventilator Respiratory Rate 12 Setting Ventilator Respiratory Rate 12 Setting Ventilator Respiratory Rate 12 Setting Ventilator Respiratory Rate 12 Setting Ventilator Respiratory Rate 12 Setting Ventilator Respiratory Rate 12 Setting Ventilator Respiratory Rate 12 Setting Actual Respiratory Rate 32 Actual Respiratory Rate 17 Actual Respiratory Rate 13 Actual Respiratory Rate 16 Actual Respiratory Rate 12 Actual Respiratory Rate 12 Actual Respiratory Rate 12 Actual Respiratory Rate 12 Actual Respiratory Rate 12 Actual Respiratory Rate 12 Positive End Expiratory 5 Pressure Positive End Expiratory 5 Pressure Positive End Expiratory 5 Pressure Positive End Expiratory 5 Pressure Positive End Expiratory 5 Pressure Positive End Expiratory 5 Pressure Positive End Expiratory 5 Pressure Positive End Expiratory 5 Pressure Positive End Expiratory 5 Pressure Positive End Expiratory 5 Pressure Positive End Expiratory 5 Pressure Peak Inspiratory Airway 14 Pressure Peak Inspiratory Airway 27 Pressure Peak Inspiratory Airway 25 Pressure Peak Inspiratory Airway 26 Pressure Peak Inspiratory Airway 26 Pressure Peak Inspiratory Airway 27 Pressure Peak Inspiratory Airway 26 Pressure Peak Inspiratory Airway 24 Pressure Peak Inspiratory Airway 25 Pressure Peak Inspiratory Airway 24 Pressure Results - Laboratory Findings CBC and BMP: 02/27/18 05:22 02/27/18 05:22 ABG ABG pH 7.35 pH Units (7.32-7.45) 02/27/18 05:03 ABG pCO2 60 mmHg (35-45) H 02/27/18 05:03 ABG pO2 81 mmHg (85-104) L 02/27/18 05:03 ABG O2 Saturation 95 % (95-98) 02/27/18 05:03 Abnormal lab findings: Abnormal lab results WBC 12.2 K/mcL (4.3-11.1) H 02/27/18 05:22 RBC 3.36 M/mcL (4.19-5.50) L 02/27/18 05:22 Hgb 10.6 g/dL (12.9-16.9) L 02/27/18 05:22 Hct 32.7 % (37.5-50.1) L 02/27/18 05:22 MPV 9.2 fL (9.4-12.4) L 02/27/18 05:22 Neutrophils # 11.0 K/mcL (1.6-8.9) H 02/27/18 05:22 Lymphocytes # 0.4 K/mcL (0.6-4.6) L 02/27/18 05:22 ABG pCO2 60 mmHg (35-45) H 02/27/18 05:03 ABG pO2 81 mmHg (85-104) L 02/27/18 05:03 ABG HCO3 33 mEq/L (21-27) H 02/27/18 05:03 ABG Total CO2 35 mEq/L (20-26) H 02/27/18 05:03 ABG Base Excess 6 mEq/L (-2 to 3) H 02/27/18 05:03 BUN 25 mg/dL (8-23) H 02/27/18 05:22 BUN/Creatinine Ratio 31 (6-26) H 02/27/18 05:22 Glucose 125 mg/dL (70-105) H 02/27/18 05:22 POC Glucose 128 mg/dL (70-99) H 02/26/18 23:25 Phosphorus 2.6 mg/dL (2.7-4.5) L 02/27/18 05:22 Total Bilirubin 0.2 mg/dL (0.3-1.0) L 02/27/18 05:22 Troponin I 0.04 ng/mL (< 0.04) H* 02/26/18 11:47 Serum Total Protein 5.4 g/dL (6.4-8.9) L 02/27/18 05:22 Albumin 3.3 g/dL (3.5-5.7) L 02/27/18 05:22 Globulin 2.1 g/dL (2.4-3.5) L 02/27/18 05:22 - Microbiology Findings Microbiology Findings: Microbiology, Last 48 Hours 02/26/18 06:05 Blood Culture - Preliminary Peripheral Venipuncture Culture is incubating and being continuously monitored for growth. Final report to follow. - Clinical Findings Intake & Output: Intake & Output 02/26/18 02/27/18 02/27/18 23:59 07:59 15:59 Intake Total 127 / 127 208 / 208 Output Total 400 / 400 170 / 170 Balance -273 / -273 38 / 38 Weight 59.9 kg - Attending Attestation I examined this patient and my medical decision-making was reviewed with the Resident Physician. I agree with the documented findings, disposition and treatment plan as described except to the extent set forth below. Patient seen and examined. Labs, radiology, chart personally reviewed. 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 Pulmonary: Acceptable oxygenation and ventilation. Patient spontaneous breathing trial was not perfect mostly due to his agitation and anxiety, he was successfully extubated and hopefully he will not need any noninvasive ventilation because of his and anxiety. Continue treatment for COPD exacerbation area it once his discharge from the hospital patient will need to follow-up as outpatient. Overall his is stable at this time and hopefully in next 24 hours he can be transferred to the floor. Cardiovascular: stable GI: Nutrition per dietary and GI prophylaxis per routine Heme: DVT prophylaxis per routine ID: Continue antibiotics and plan to de-escalation. Renal; urine out put and renal funtion reviewed Endorcine: blood glucose is monitored Lines: all lines checked and no evidence of infections Skin: skin care to prevent pressure ulcers per nursing routine care If patient remain stable, he can be transferred out of ICU and follow up as outpatient with pulmonary clinic.
[2018-02-27] MEDS: Budesonide/Formoterol 160/4.5 1 PUFF INH IH SCH ×2 (07:45→19:28)
[2018-02-27] MEDS: Dexmedetomidine HCl 400 MCG/100 ML MLS IVC SCH ×2 (09:20→18:55)
[2018-02-27] MEDS: Levofloxacin 500 MG/100 ML 500 MG/100 ML BAG IVPB SCH (09:20)
[2018-02-27] MEDS: Chlorhexidine Rinse 15 ML MOUTHWASH MM SCH ×2 (09:20→23:58)
[2018-02-27 11:01] LABS: Acinetobacter baumannii by PCR Not Detected (Not Detect); Candida albicans by PCR Not Detected (Not Detect); Candida glabrata by PCR Not Detected (Not Detect); Candida krusei by PCR Not Detected (Not Detect); Candida parapsilosis by PCR Not Detected (Not Detect); Candida tropicalis by PCR Not Detected (Not Detect); Enterobacter cloacae Cmplx PCR Not Detected (Not Detect); Enterobacteriaceae by PCR Not Detected (Not Detect); Enterococcus by PCR Not Detected (Not Detect); Escherichia coli by PCR Not Detected (Not Detect); Klebsiella oxytoca by PCR Not Detected (Not Detect); Klebsiella pneumoniae by PCR Not Detected (Not Detect); Proteus by PCR Not Detected (Not Detect); Pseudomonas aeruginosa by PCR Not Detected (Not Detect); Serratia marcescens by PCR Not Detected (Not Detect); Staphylococcus aureus by PCR Not Detected (Not Detect); Staphylococcus by PCR Not Detected (Not Detect); Streptococcus agalactiae(B)PCR Not Detected (Not Detect); Streptococcus by PCR DETECTED (Not Detect); Streptococcus pneumoniae PCR Not Detected (Not Detect); Streptococcus pyogenes (A) PCR Not Detected (Not Detect)
[2018-02-27] MEDS ORDERED: Ipratropium/Albuterol Neb 3 ML IH PRN (13:37)
[2018-02-27] MEDS ORDERED: *HR* LORazepam 2 MG/ML VIAL ONE (13:57)
[2018-02-27] MEDS: *HR* LORazepam 2 MG/ML VIAL IVP PRN (14:38)
[2018-02-27] MEDS: FentaNYL (PF) 1,000 MCG in 0.9 % Sodium Chloride 80 ML IVC SCH (18:14)
[2018-02-28] MEDS: MethylPREDNISolone 40 MG/ML VIAL IVP SCH ×4 (00:05→20:01)
[2018-02-28] MEDS: Insulin LISPRO 300 UNITS/3 ML VIAL SQ SCH ×4 (00:05→19:53)
[2018-02-28 03:35] LABS: Eosinophils % 0.1 %; Hemoglobin 11.4 g/dL (12.9-16.9); Immature Granulocytes % 0.7 % (0-4); Lymphocytes # 0.4 K/mcL (0.6-4.6); Lymphocytes % 3.6 %; Mean Corpuscular HGB Conc 31.7 g/dL (31.6-35.5); Mean Corpuscular Hemoglobin 31.2 pg (28.0-33.3); Mean Corpuscular Volume 98.6 fL (83.0-100.0); Mean Platelet Volume 9.3 fL (9.4-12.4); Monocytes # 0.4 K/mcL (0.0-1.3); Monocytes % 4.2 %; Neutrophils # 9.5 K/mcL (1.6-8.9); Platelet Count 175 K/mcL (140-400); Red Blood Count 3.65 M/mcL (4.19-5.50); Red Cell Distribution Width 13.2 % (11.5-14.5); Segmented Neutrophils % 91.4 %
[2018-02-28] MEDS: Ipratropium/Albuterol Neb 3 ML IH SCH ×4 (03:35→14:40)
[2018-02-28 03:55] LABS: Alanine Aminotransferase 17 Units/L (7-52); Albumin 3.5 g/dL (3.5-5.7); Albumin/Globulin Ratio 1.8 (1.1-2.2); Alkaline Phosphatase 33 Units/L (34-104); Aspartate Amino Transferase 26 Units/L (13-39); BUN/Creatinine Ratio 36 (6-26); Bilirubin,Total 0.3 mg/dL (0.3-1.0); Blood Urea Nitrogen 27 mg/dL (8-23); Calcium 9.1 mg/dL (8.6-10.3); Carbon Dioxide 32 mEq/L (23-29); Chloride 103 mEq/L (98-107); Glucose 144 mg/dL (70-105); Magnesium 2.2 mg/dL (1.6-2.6); Osmolality,Calculated 296 (280-300); Phosphorous 3.2 mg/dL (2.7-4.5); Potassium 4.7 mEq/L (3.5-5.1); Sodium 139 mEq/L (136-145); Total Protein 5.5 g/dL (6.4-8.9); eGFR For Non-African Americans > 60 (> 60)
[2018-02-28] MEDS: Dexmedetomidine HCl 400 MCG/100 ML MLS IVC SCH (04:00)
[2018-02-28] MEDS: FentaNYL (PF) 1,000 MCG in 0.9 % Sodium Chloride 80 ML IVC SCH (04:42)
[2018-02-28] MEDS: Artificial Tears SOLN 15 ML BOTTLE BOTH EYES SCH ×3 (04:42→12:49)
[2018-02-28] MEDS: *HR* Heparin 5,000 UNIT/ML VIAL SQ SCH ×2 (05:54→20:01)
[2018-02-28] MEDS: Pantoprazole 40 MG VIAL IVP SCH (05:54)
[2018-02-28] MEDS: Budesonide/Formoterol 160/4.5 1 PUFF INH IH SCH ×2 (07:42→22:22)
--- NOTE | 2018-02-28 08:52 | Internal Med Progress Note ---
<Jose Richards - Last Filed: 02/28/18 14:50> Hospitalist Progress Note - Encounter Date of Encounter: 02/28/18 Time of Encounter: 08:49 - Subjective Interval History: No acute events overnight. Patient states he was feeling well this morning before his breathing treatment. He complains that his nebulizer treatment was turned up too high and it made him worse. He is also very upset that his lorazepam was discontinued in the outpatient setting and is adamant that is the reason he was hospitalized. Otherwise he denies fever or chills, chest pain. He complains of a cough and tremor but did not cough during my extensive interview and his tremor appears to be due to anxiety. I received several complaints from nursing and staff that he was rude to them. - Exam Vitals: Temp Pulse Resp BP Pulse Ox 97.8 F 70 18 120/91 100 02/28/18 07:10 02/28/18 07:31 02/28/18 07:41 02/28/18 07:24 02/28/18 07:41 Exam: Alert and oriented Anxious affect, difficult to redirect Fidgeting, intention tremor with attempting to eat/drink PEERL, mucous membranes dry Heart tachycardic in regular rhythm Tachypneic, diffuse wheeze auscultated, poor expansion and air movement, diffusely diminished Abdomen soft and non tender Lower extremities non-edematous Skin warm and dry - Assessment and Plan (1) Acute on chronic respiratory failure with hypoxia and hypercapnia Current Visit: Yes Status: Acute Assessment and Plan: Patient transferred from [place] ED on 02/26 for acute on chronic respiratory failure with hypoxia and hypercapnia secondary to COPD exacerbation Patient apparently has issues with tobacco abuse and home medication and BiPAP compliance, and frequently requests lorazepam Patient refused BiPAP at admission quickly decompensated and had to be urgently intubated He was successfully extubated yesterday and is saturating and ventilating appropriately on 3 L nasal cannula today He has been consistently tachycardic and tachypneic but this is most likely secondary to anxiety as opposed to a cardiac or pulmonary etiology He has been consistently afebrile without radiologic evidence of pneumonia and suspicion for sepsis is low CT of the chest was negative for pulmonary embolism Blood culture positive for Streptococcus, possibly contaminant as patient does not exhibit other evidence for infection In general the patient has significantly improved clinically, I believe most of his symptoms are secondary to anxiety and benzodiazepine dependence His benzodiazepines were discontinued in the last several weeks and he is out of the time range for withdrawal plan Continue 40 mg IV Solu-Medrol every 6 hours, continue IV Levaquin day 3 Continue scheduled bronchodilator therapy, will switch albuterol to Xopenex an effort to prevent further tachycardia and anxiety Patient is on a Precedex drip and is receiving 0.5 mg lorazepam by mouth every 12 when necessary for anxiety per pulmonology We will repeat blood cultures to establish clean culture prior to considering discharge Patient will be transferred from the ICU to stepdown unit (2) Acute exacerbation of chronic obstructive airways disease Current Visit: No Status: Acute Assessment and Plan: Plan as seen above (3) Tobacco abuse Current Visit: Yes Status: Chronic Assessment and Plan: Patient has been frequently educated on the risks and benefits of smoking cessation (4) Benzodiazepine dependence Current Visit: No Status: Acute Assessment and Plan: Patient has a history of long-term chronic prescribed use of lorazepam for anxiety Apparently he was recently taken off his lorazepam prescription by his primary care physician He is continuously requesting oral lorazepam in the hospital, stating that all of his symptoms are secondary to stopping his medication Believe this patient is psychologically dependent and not physically dependent on this medication (5) DVT prophylaxis Current Visit: Yes Status: Acute Assessment and Plan: 5000 units heparin subcutaneous every 12 hours (6) Hypertension Current Visit: Yes Status: Acute Assessment and Plan: Patient is history of hypertension, blood pressures have been stable here around 115/75 We will hold home hypertensive medications and continue to monitor (7) Anxiety Current Visit: Yes Status: Chronic Assessment and Plan: Patient has history of chronic anxiety for which he takes lorazepam Plan as seen above (8) Lactic acidosis Current Visit: No Status: Resolved Assessment and Plan: Lactic acid was initially elevated on admission and trended downwards Resolved (9) Elevated troponin Current Visit: Yes Status: Resolved Assessment and Plan: Troponin was mildly elevated at admission and trended down Patient did not exhibit signs or symptoms of ACS EKG readings at admission within normal limits Resolved - Time Spent with Patient Total time spent is greater than 50% in coordination of care (as documented) at patient's floor/unit and/or counseling patient: Internal Medicine: Result - Labs CBC & Chem 7: 02/28/18 03:07 02/28/18 03:07 Labs: Short CBC 02/28/18 Range/Units 03:07 WBC 10.4 (4.3-11.1) K/mcL Hgb 11.4 L (12.9-16.9) g/dL Hct 36.0 L (37.5-50.1) % Plt Count 175 (140-400) K/mcL Neutrophils # 9.5 H (1.6-8.9) K/mcL BMP 02/28/18 03:07 Sodium 139 Potassium 4.7 Chloride 103 Carbon Dioxide 32 H BUN 27 H Creatinine 0.76 Glucose 144 H Calcium 9.1 Liver Function 02/28/18 Range/Units 03:07 Total Bilirubin 0.3 (0.3-1.0) mg/dL AST 26 (13-39) Units/L ALT 17 (7-52) Units/L Alkaline Phosphatase 33 L (34-104) Units/L Albumin 3.5 (3.5-5.7) g/dL - ABG Interpretation ABG results: ABG ABG pH 7.35 pH Units (7.32-7.45) 02/27/18 05:03 ABG pCO2 60 mmHg (35-45) H 02/27/18 05:03 ABG pO2 81 mmHg (85-104) L 02/27/18 05:03 ABG O2 Saturation 95 % (95-98) 02/27/18 05:03 Consult Discharge Plan - Plan Referrals: NONE,PCP [Non-Partnered Physician] - <Valarie Bullock - Last Filed: 02/28/18 16:36> Hospitalist Progress Note - Encounter Date of Encounter: 02/28/18 - Exam Vitals: Temp Pulse Resp BP Pulse Ox 97.6 F 93 23 124/84 100 02/28/18 11:39 02/28/18 15:57 02/28/18 15:00 02/28/18 15:00 02/28/18 15:00 - Assessment and Plan (1) Anxiety Current Visit: Yes Status: Chronic (2) Tobacco abuse Current Visit: Yes Status: Chronic (3) Acute exacerbation of chronic obstructive airways disease Current Visit: No Status: Acute (4) Benzodiazepine dependence Current Visit: No Status: Acute (5) Lactic acidosis Current Visit: No Status: Resolved (6) Acute on chronic respiratory failure with hypoxia and hypercapnia Current Visit: Yes Status: Acute (7) DVT prophylaxis Current Visit: Yes Status: Acute (8) Hypertension Current Visit: Yes Status: Acute (9) Elevated troponin Current Visit: Yes Status: Resolved - Time Spent with Patient Total time spent is greater than 50% in coordination of care (as documented) at patient's floor/unit and/or counseling patient: Internal Medicine: Result - Labs CBC & Chem 7: 02/28/18 03:07 02/28/18 03:07 Labs: Short CBC 02/28/18 Range/Units 03:07 WBC 10.4 (4.3-11.1) K/mcL Hgb 11.4 L (12.9-16.9) g/dL Hct 36.0 L (37.5-50.1) % Plt Count 175 (140-400) K/mcL Neutrophils # 9.5 H (1.6-8.9) K/mcL BMP 02/28/18 03:07 Sodium 139 Potassium 4.7 Chloride 103 Carbon Dioxide 32 H BUN 27 H Creatinine 0.76 Glucose 144 H Calcium 9.1 Liver Function 02/28/18 Range/Units 03:07 Total Bilirubin 0.3 (0.3-1.0) mg/dL AST 26 (13-39) Units/L ALT 17 (7-52) Units/L Alkaline Phosphatase 33 L (34-104) Units/L Albumin 3.5 (3.5-5.7) g/dL - ABG Interpretation ABG results: ABG ABG pH 7.35 pH Units (7.32-7.45) 02/27/18 05:03 ABG pCO2 60 mmHg (35-45) H 02/27/18 05:03 ABG pO2 81 mmHg (85-104) L 02/27/18 05:03 ABG O2 Saturation 95 % (95-98) 02/27/18 05:03 - Attending Attestation I examined this patient and my medical decision-making was reviewed with the Resident Physician Dr Richards. I agree with the documented findings, disposition and treatment plan as described except to the extent set forth below. Mr Andrea was admitted for acute on chronic resp failure from copde. He had deman ischemia with mild trop elevation. 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 Anxiety has been an issue that complicated his resp status in ICU with pt being started on precedex and prn IV ativan. he is transferring out of icu today on O2 NC, precedex gtt, IV steroids, abx and nebs. awake, alert, normal resp effort on o2 nc and denies sob, wheezing currently. + cough. perseverates on anxiety and will talk about little else. He is calm speaking to me with normal bp and normal HR on tele. gen- alert, awake,appears stated age eyes- pupils equal round cv- reg rate and rhythm,confirmed on tele, normal s1,s2, no murmurs appreciated lungs- diminished throughout, no rhonchi or wheezing at this time, normal resp effort on o2 nc neuro- AAOx3, CN grossly intact, no tremor noted Acute on Chronic Resp Failure + streptococcus pcr - IV steroids, IV levaquin, daytime supplemental o2, nocturnal bipap, nebs- perhaps xopenex in place of albuterol would assist with anxiety management + bl cx 02/26 with gpc strep, speciation and sensitivity pending-one set from admit here but OSH bl cx two sets 02/26 ngtd -repeat cx 02/27 sent - cont on levaquin, clinically picture improving and afebrile, cont ot follow cxs Anxiety- recently taken off ativan per pt 2 weeks ago, denies any ativan use at home in the interim, precedex gtt started by ICU team for anxiety,prn ativan q12 given respiratory status--we will cont their orders at this time, hs ativan should be given and hope would be able to wean precedex gtt overnight, no seizure like activity, suspect his anxiety will be difficult to control and impair resp status trop elevation on presentation thought to be secondary to demand ischemia with acute on chronci resp failure- icu monitored and down trended to 0.04 with peak 0.05, ekgs reported to be without acute ischemic changes further diagnoses and plan as documented by resident <Jose Richards - Last Filed: 02/28/18 14:50> (6) Hypertension Qualifiers: Hypertension type: essential hypertension Qualified Code(s): I10 - Essential (primary) hypertension <Valarie Bullock M - Last Filed: 02/28/18 16:36> (8) Hypertension Qualifiers: Hypertension type: essential hypertension Qualified Code(s): I10 - Essential (primary) hypertension
[2018-02-28] MEDS: *HR* LORazepam 2 MG/ML VIAL IVP PRN ×2 (08:56→21:13)
[2018-02-28] MEDS: Levofloxacin 500 MG/100 ML 500 MG/100 ML BAG IVPB SCH (08:56)
[2018-02-28] MEDS: Chlorhexidine Rinse 15 ML MOUTHWASH MM SCH (09:03)
[2018-02-28] MEDS ORDERED: *HR* LORazepam 0.5 MG TABLET PO PRN (11:07)
--- NOTE | 2018-02-28 12:10 | Pulmonology Progress Note ---
<Renae Aguilar - Last Filed: 02/28/18 12:59> Date of Encounter: 02/28/18 Time of Encounter: 08:30 Assessment and Plan (1) Acute on chronic respiratory failure with hypoxia and hypercapnia Current Visit: Yes Status: Acute Transferred from [place] ED on 02/26 for acute respiratory distress with COPD exacerbation Upon arrival at [facility] pt was refusing BiPAP. Afebrile, tachycardic, and tachypneic. SpO2 decreased and he was urgently intubated. WBC mildly elevated at 14.9 - decreased to 12.2 Initial lactic acid was 5.4, but repeat decreased to 1.8 SIRS picture likely secondary to respiratory distress and COPD exacerbation Suspicion of sepsis low and no source of infection at this time CXR negative for acute abnormalities, no obvious consolidations or infiltrates CTA negative for PE Blood culture drawn 02/26 x1 set shows gram positive cocci. Could be contaminant. Followup on final ID. Extubated yesterday and tolerating NC Continue Solumedrol 40mg q6hr Continue scheduled duonebs and symbicort Continue Levaquin day 3 Patient to be transferred out of ICU today. (2) Acute exacerbation of chronic obstructive airways disease Current Visit: No Status: Acute Plan as #1 above (3) Anxiety Current Visit: No Status: Chronic Presented with dyspnea on exertion and when anxious. Patient has significant anxiety. Intermittent tachycardia and feet/hand shaking due to anxiety. Shaking is unlikely from Ativan withdrawal as last use was months ago. Patient continually asks for Ativan stating he hasnt gotten any Ativan pills. Patient was receiving IV Ativan 0.5 BID prn. Will switch to PO as this is what patient is used to. Continue precedex. (4) Lactic acidosis Current Visit: No Status: Resolved Initial Lactic 5.4 Repeat 1.8 Resolved Plan as #1 above (5) Elevated troponin Current Visit: Yes Status: Acute Slightly elevated at 0.05, 0.04 Likely secondary to demand ischemia Plan as #1 above (6) Tobacco abuse Current Visit: Yes Status: Chronic Chronic issue Pt educated on smoking cessation prior to intubation and again post intubation (7) DVT prophylaxis Current Visit: Yes Status: Acute SQ Heparin Subjective Principal diagnosis: COPD exacerbation Interval history: Patient seen and examined. No acute events overnight. Patient is resting comfortably in bed. Patient was extubated yesterday. Was on BiPAP last night. Currently on 3L NC. Nursing staff report patient is very rude. He continually complains and works himself up. Patient states that his breathing was ok before he got the breathing treatment this morning. States he doesn't want "mucus." Patient states that he is shaky and points to his feet. States his mouth is dry. Requests help drinking water because his hands are shaky. His hands are in his lap and not shaking. When this is pointed out, patient lifts his hands and hands start to shake more and more spilling water. Patient continually asks for Ativan. He is already on IV Ativan, same dose as outpatient. Objective PUL Vital signs: Last Vital Signs Temp 97.6 F 02/28/18 11:39 Pulse 61 02/28/18 11:20 Resp 20 02/28/18 11:20 BP 106/66 02/28/18 11:20 Pulse Ox 99 02/28/18 11:20 General appearance: no acute distress, alert Eyes: nonicteric ENT: oropharynx dry Neck: supple Effort: normal Auscultation: bilateral: wheezes (mild diffuse wheezing) Cardiovascular: regular rate and rhythm Gastrointestinal: normoactive bowel sounds, soft, non-tender Integumentary: normal Extremities: no cyanosis, no edema, no clubbing, pink and warm, other (feet - resting tremor. Hands - intention tremor. ) Musculoskeletal: no deformities normal mental status, pupils equal and round anxious Results - Laboratory Findings CBC and BMP: 02/28/18 03:07 02/28/18 03:07 ABG ABG pH 7.35 pH Units (7.32-7.45) 02/27/18 05:03 ABG pCO2 60 mmHg (35-45) H 02/27/18 05:03 ABG pO2 81 mmHg (85-104) L 02/27/18 05:03 ABG O2 Saturation 95 % (95-98) 02/27/18 05:03 Abnormal lab findings: Abnormal lab results RBC 3.65 M/mcL (4.19-5.50) L 02/28/18 03:07 Hgb 11.4 g/dL (12.9-16.9) L 02/28/18 03:07 Hct 36.0 % (37.5-50.1) L 02/28/18 03:07 MPV 9.3 fL (9.4-12.4) L 02/28/18 03:07 Neutrophils # 9.5 K/mcL (1.6-8.9) H 02/28/18 03:07 Lymphocytes # 0.4 K/mcL (0.6-4.6) L 02/28/18 03:07 ABG pCO2 60 mmHg (35-45) H 02/27/18 05:03 ABG pO2 81 mmHg (85-104) L 02/27/18 05:03 ABG HCO3 33 mEq/L (21-27) H 02/27/18 05:03 ABG Total CO2 35 mEq/L (20-26) H 02/27/18 05:03 ABG Base Excess 6 mEq/L (-2 to 3) H 02/27/18 05:03 Carbon Dioxide 32 mEq/L (23-29) H 02/28/18 03:07 BUN 27 mg/dL (8-23) H 02/28/18 03:07 BUN/Creatinine Ratio 36 (6-26) H 02/28/18 03:07 Glucose 144 mg/dL (70-105) H 02/28/18 03:07 POC Glucose 114 mg/dL (70-99) H 02/28/18 10:59 Alkaline Phosphatase 33 Units/L (34-104) L 02/28/18 03:07 Troponin I 0.04 ng/mL (< 0.04) H* 02/26/18 11:47 Serum Total Protein 5.5 g/dL (6.4-8.9) L 02/28/18 03:07 Globulin 2.0 g/dL (2.4-3.5) L 02/28/18 03:07 Streptococcus sp PCR DETECTED (Not Detect) A 02/26/18 06:05 - Microbiology Findings Microbiology Findings: Microbiology, Last 48 Hours 02/28/18 09:21 Blood Culture - Preliminary Peripheral Venipuncture Culture is incubating and being continuously monitored for growth. Final report to follow. 02/28/18 09:15 Blood Culture - Preliminary Peripheral Venipuncture Culture is incubating and being continuously monitored for growth. Final report to follow. 02/26/18 06:05 Blood Culture - Preliminary Peripheral Venipuncture Gram Positive Cocci - Clinical Findings Intake & Output: Intake & Output 11/02/28/18 02/28/18 23:59 07:59 15:59 Intake Total 251 / 251 49 / 49 360 / 360 Output Total 250 / 250 400 / 400 300 / 300 Balance -351 / -351 60 / 60 Weight 60 kg Consult Discharge Plan - Plan Referrals: NONE,PCP [Non-Partnered Physician] - <Keren Jorgensen S - Last Filed: 02/28/18 14:38> Date of Encounter: 02/28/18 Objective PUL Vital signs: Last Vital Signs Temp 97.6 F 02/28/18 11:39 Pulse 65 02/28/18 12:00 Resp 25 02/28/18 12:00 BP 116/76 02/28/18 12:00 Pulse Ox 96 02/28/18 12:00 Results - Laboratory Findings CBC and BMP: 02/28/18 03:07 02/28/18 03:07 ABG ABG pH 7.35 pH Units (7.32-7.45) 02/27/18 05:03 ABG pCO2 60 mmHg (35-45) H 02/27/18 05:03 ABG pO2 81 mmHg (85-104) L 02/27/18 05:03 ABG O2 Saturation 95 % (95-98) 02/27/18 05:03 Abnormal lab findings: Abnormal lab results RBC 3.65 M/mcL (4.19-5.50) L 02/28/18 03:07 Hgb 11.4 g/dL (12.9-16.9) L 02/28/18 03:07 Hct 36.0 % (37.5-50.1) L 02/28/18 03:07 MPV 9.3 fL (9.4-12.4) L 02/28/18 03:07 Neutrophils # 9.5 K/mcL (1.6-8.9) H 02/28/18 03:07 Lymphocytes # 0.4 K/mcL (0.6-4.6) L 02/28/18 03:07 ABG pCO2 60 mmHg (35-45) H 02/27/18 05:03 ABG pO2 81 mmHg (85-104) L 02/27/18 05:03 ABG HCO3 33 mEq/L (21-27) H 02/27/18 05:03 ABG Total CO2 35 mEq/L (20-26) H 02/27/18 05:03 ABG Base Excess 6 mEq/L (-2 to 3) H 02/27/18 05:03 Carbon Dioxide 32 mEq/L (23-29) H 02/28/18 03:07 BUN 27 mg/dL (8-23) H 02/28/18 03:07 BUN/Creatinine Ratio 36 (6-26) H 02/28/18 03:07 Glucose 144 mg/dL (70-105) H 02/28/18 03:07 POC Glucose 114 mg/dL (70-99) H 02/28/18 10:59 Alkaline Phosphatase 33 Units/L (34-104) L 02/28/18 03:07 Troponin I 0.04 ng/mL (< 0.04) H* 02/26/18 11:47 Serum Total Protein 5.5 g/dL (6.4-8.9) L 02/28/18 03:07 Globulin 2.0 g/dL (2.4-3.5) L 02/28/18 03:07 Streptococcus sp PCR DETECTED (Not Detect) A 02/26/18 06:05 - Microbiology Findings Microbiology Findings: Microbiology, Last 48 Hours 02/28/18 09:21 Blood Culture - Preliminary Peripheral Venipuncture Culture is incubating and being continuously mo nitored for growth. Final report to follow. 02/28/18 09:15 Blood Culture - Preliminary Peripheral Venipuncture Culture is incubating and being continuously monitored for growth. Final report to follow. 02/26/18 06:05 Blood Culture - Preliminary Peripheral Venipuncture Gram Positive Cocci - Clinical Findings Intake & Output: Intake & Output 02/27/18 02/28/18 02/28/18 23:59 07:59 15:59 Intake Total 251 / 251 49 / 49 760 / 760 Output Total 250 / 250 400 / 400 700 / 700 Balance -351 / -351 60 / 60 Weight 60 kg - Attending Attestation I saw and evaluated this patient and my medical decision-making was reviewed with the Resident Physician. I agree with the documented findings, disposition and treatment plan as described except to the extent set forth below. We inde pendently had [id number] contact with the patient Patient seen and examined at bedside Labs, radiology, chart personally reviewed. Management was reviewed during multidisciplinary critical care rounds. BILINGUAL SECRETARY: Patient is conscious oriented has some anxiety issues is on I.V Ativan will change to by PO Ativan might need some antipsychotics will try this by mouth Ativan regimen to liberate Precedex as tolerated. Pulm: Patient has acceptable oxygenation and ventilation COPD exacerbation complicated by pneumonia blood cultures growing Streptococcus species and repeat blood cultures negative for follow the cultures and antibiotic therapy duration is based upon clinical picture.BIPAP prn during the day , BIPAP during the night Cards: Patient is hemodynamically stable. FEN-GI: Advance diet as tolerated Renal: Labs and output reviewed ID: To continue levofloxacin duration of therapy according to a second set of blood cultures and clinical response. If second set of blood cultures comes negative He will need at least 10 day course of antibiotic therapy. Heme/Onc:Labs and output reviewed Endo: Glucose Monitored Integ/MSK: Skin Care per routine ICU Nursing Protocol to prevent ulcers. Lines: All lines examined without evidence of infection : Dispo: Transfer to CODE:Full Code
[2018-02-28] MEDS ORDERED: *HR* LORazepam 0.5 MG TABLET PO ONE (14:50)
[2018-02-28] MEDS ORDERED: Levalbuterol Neb 0.63 MG/3 ML IH SCH (16:00)
[2018-02-28] MEDS ORDERED: D5% in Water 1,000 ML IVC PRN (17:21)
[2018-02-28] MEDS ORDERED: Dextrose Gel 15 GM/37.5 ML TUBE PO PRN ×2 (17:21)
[2018-02-28] MEDS ORDERED: *HR* Dextrose 50 % in Water (Syg) 50 ML SYRINGE IVP PRN (17:21)
[2018-02-28] MEDS ORDERED: Naloxone 0.4 MG/ML INJ IVP PRN (17:21)
[2018-02-28] MEDS ORDERED: Dexmedetomidine HCl 400 MCG/100 ML MLS IVC SCH (17:21)
[2018-02-28] MEDS: *HR* LORazepam 0.5 MG TABLET PO PRN (20:02)
[2018-02-28] MEDS ORDERED: 0.9 % Sodium Chloride 1,000 ML ONE (20:48)
[2018-02-28] MEDS ORDERED: *HR* LORazepam 2 MG/ML VIAL ONE (21:07)
[2018-02-28] MEDS: Levalbuterol Neb 0.63 MG/3 ML IH SCH (22:22)
[2018-03-01] MEDS: *HR* LORazepam 2 MG/ML VIAL IVP PRN ×2 (00:55→01:02)
[2018-03-01] MEDS: MethylPREDNISolone 40 MG/ML VIAL IVP SCH ×2 (00:56→07:21)
[2018-03-01] MEDS: Insulin LISPRO 300 UNITS/3 ML VIAL SQ SCH ×4 (00:56→17:59)
[2018-03-01] MEDS: Levalbuterol Neb 0.63 MG/3 ML IH SCH ×2 (04:10→10:56)
[2018-03-01 05:12] LABS: Hematocrit 35.9 % (37.5-50.1); Hemoglobin 11.3 g/dL (12.9-16.9); Immature Granulocytes % 0.6 % (0-4); Lymphocytes # 0.4 K/mcL (0.6-4.6); Mean Corpuscular HGB Conc 31.5 g/dL (31.6-35.5); Mean Corpuscular Volume 98.6 fL (83.0-100.0); Mean Platelet Volume 9.6 fL (9.4-12.4); Monocytes # 0.7 K/mcL (0.0-1.3); Monocytes % 7.5 %; Neutrophils # 8.5 K/mcL (1.6-8.9); Platelet Count 198 K/mcL (140-400); Red Blood Count 3.64 M/mcL (4.19-5.50); Red Cell Distribution Width 13.1 % (11.5-14.5); Segmented Neutrophils % 87.9 %
[2018-03-01 05:30] LABS: Alanine Aminotransferase 18 Units/L (7-52); Albumin 3.2 g/dL (3.5-5.7); Albumin/Globulin Ratio 1.6 (1.1-2.2); Alkaline Phosphatase 34 Units/L (34-104); Aspartate Amino Transferase 23 Units/L (13-39); BUN/Creatinine Ratio 28 (6-26); Bilirubin,Total 0.3 mg/dL (0.3-1.0); Blood Urea Nitrogen 19 mg/dL (8-23); Calcium 9.6 mg/dL (8.6-10.3); Carbon Dioxide 35 mEq/L (23-29); Chloride 101 mEq/L (98-107); Glucose 182 mg/dL (70-105); Osmolality,Calculated 295 (280-300); Potassium 4.9 mEq/L (3.5-5.1); Sodium 139 mEq/L (136-145); Total Protein 5.2 g/dL (6.4-8.9); eGFR For Non-African Americans > 60 (> 60)
[2018-03-01] MEDS: *HR* Heparin 5,000 UNIT/ML VIAL SQ SCH ×2 (07:21→18:03)
[2018-03-01] MEDS: *HR* LORazepam 0.5 MG TABLET PO PRN ×2 (07:54→16:46)
[2018-03-01] MEDS ORDERED: Levofloxacin 500 MG/100 ML 500 MG/100 ML BAG IVPB SCH (09:00)
--- NOTE | 2018-03-01 10:29 | Internal Med Progress Note ---
<Aldo Pulliam - Last Filed: 03/01/18 14:06> Hospitalist Progress Note - Encounter Date of Encounter: 03/01/18 - Exam Vitals: Temp Pulse Resp BP Pulse Ox 98.1 F 106 22 151/89 98 03/01/18 10:54 03/01/18 13:08 03/01/18 13:08 03/01/18 10:54 03/01/18 11:53 - Assessment and Plan (1) Anxiety Current Visit: Yes Status: Chronic (2) Tobacco abuse Current Visit: Yes Status: Chronic (3) Acute exacerbation of chronic obstructive airways disease Current Visit: No Status: Acute (4) Benzodiazepine dependence Current Visit: No Status: Acute (5) Acute on chronic respiratory failure with hypoxia and hypercapnia Current Visit: Yes Status: Acute (6) DVT prophylaxis Current Visit: Yes Status: Acute (7) Hypertension Current Visit: Yes Status: Acute (8) Elevated troponin Current Visit: Yes Status: Resolved - Time Spent with Patient Total time spent is greater than 50% in coordination of care (as documented) at patient's floor/unit and/or counseling patient: Internal Medicine: Result - Labs CBC & Chem 7: 03/01/18 04:19 03/01/18 04:19 Labs: Short CBC 03/01/18 Range/Units 04:19 WBC 9.6 (4.3-11.1) K/mcL Hgb 11.3 L (12.9-16.9) g/dL Hct 35.9 L (37.5-50.1) % Plt Count 198 (140-400) K/mcL Neutrophils # 8.5 (1.6-8.9) K/mcL BMP 03/01/18 04:19 Sodium 139 Potassium 4.9 Chloride 101 Carbon Dioxide 35 H BUN 19 Creatinine 0.68 L Glucose 182 H Calcium 9.6 Liver Function 03/01/18 Range/Units 04:19 Total Bilirubin 0.3 (0.3-1.0) mg/dL AST 23 (13-39) Units/L ALT 18 (7-52) Units/L Alkaline Phosphatase 34 (34-104) Units/L Albumin 3.2 L (3.5-5.7) g/dL - ABG Interpretation ABG results: ABG ABG pH 7.35 pH Units (7.32-7.45) 02/27/18 05:03 ABG pCO2 60 mmHg (35-45) H 02/27/18 05:03 ABG pO2 81 mmHg (85-104) L 02/27/18 05:03 ABG O2 Saturation 95 % (95-98) 02/27/18 05:03 Consult Discharge Plan - Plan Referrals: Gerson Rea DO [Resident] - 03/11/18 10:00 am NONE,PCP [Non-Partnered Physician] - - Attending Attestation I examined this patient and my medical decision-making was reviewed with the Resident Physician on 03/01/18. I agree with the documented findings, disposition and treatment plan as described except to the extent set forth below. Mr Andrea is currently admitted for acute exac COPD. He has improved with restarting some Ativan for his anxiety. He remains moderate to high risk due to potential for worsening clinical status. Mr Andrea feels his breathing has improved since yesterday. No CP at this time. Has been off Precedex all night. Feels that stopping Ativan in outpatient setting has been detrimental to his symptoms and he relates he will return to the hospital if he does not have some to go home. No fever or chills. Some cough still. Concerned about his other meds as well. Exam alert Comfortable at rest at this time Mucus membranes dry Heart reg and not tachy now Scant wheeze bilaterally Abd soft No edema I/P 1. Acute exac COPD - taper steroids. Increase activity. Possible discharge tomorrow. Transfer out of [facility]. 2. Anxiety - at this time we have restarted low dose Ativan. We will discharge him with some as he insists he will return to the hospital immediately. Further diagnoses and plan as above. <Jose Richards - Last Filed: 03/01/18 16:21> Hospitalist Progress Note - Encounter Date of Encounter: 03/01/18 Time of Encounter: 10:27 - Subjective Interval History: Patient was transferred to the stepdown unit from the ICU last night. No acute events last night and the patient does not have any complaints this morning. He states that ever since he started getting his oral lorazepam yesterday he is felt like his normal self and like he is ready to go home tomorrow. It has become apparent that Much of the patient's symptoms are due to psychological withdrawal from benzodiazepines. His respiratory status has significantly improved clinically and much of the tachycardia and tachypnea that was due to anxiety yesterday has resolved since he has been receiving his oral lorazepam. This patient's excess after discharge will greatly depend on follow-up with a physician who can either feel comfortable prescribing this patient lorazepam he is taken since childhood or psychiatric referral to wean him. - Exam Vitals: Temp Pulse Resp BP Pulse Ox 97.9 F 83 22 128/78 100 03/01/18 07:45 03/01/18 10:07 03/01/18 10:07 03/01/18 07:45 03/01/18 10:07 Exam: Alert and oriented Normal affect PEERL, mucous membranes dry Heart in regular rate and rhythm Normal respiratory rate, diminished lung sounds diffusely, minimal scattered wheeze, no rhonchi Abdomen soft and non tender Lower extremities non-edematous Skin warm and dry - Assessment and Plan (1) Acute on chronic respiratory failure with hypoxia and hypercapnia Current Visit: Yes Status: Acute Assessment and Plan: Patient transferred from [place] ED on 02/26 for acute on chronic respiratory failure with hypoxia and hypercapnia secondary to COPD exacerbation Patient apparently has issues with tobacco abuse and home medication and BiPAP compliance, and frequently requests lorazepam Patient refused BiPAP at admission quickly decompensated and had to be urgently intubated He was successfully extubated 02/27 and is saturating and ventilating appropriately on 4.5 L nasal cannula today He was consistently tachycardic and tachypneic but this was most likely secondary to anxiety as opposed to a cardiac or pulmonary etiology He has been consistently afebrile without radiologic evidence of pneumonia and suspicion for sepsis is low CT of the chest was negative for pulmonary embolism or other acute process Blood culture positive for Streptococcus, possibly contaminant as patient does not exhibit other evidence for infection, blood cultures without growth In general the patient has significantly improved clinically, I believe part of his symptoms are secondary to anxiety and benzodiazepine dependence plan Change 40 mg IV Solu-Medrol every 6 hours to 60mg PO prednisone daily, continue IV Levaquin day 4 Continue scheduled bronchodilator therapy, home inhalers Patient will be transferred from stepdown unit to floor 6min walk qualification for home O2 (2) Acute exacerbation of chronic obstructive airways disease Current Visit: No Status: Acute Assessment and Plan: Plan as seen above (3) Tobacco abuse Current Visit: Yes Status: Chronic Assessment and Plan: Patient has been frequently educated on the risks of tobacco use and benefits of smoking cessation (4) Benzodiazepine dependence Current Visit: No Status: Acute Assessment and Plan: Patient has a history of long-term chronic prescribed use of lorazepam for anxiety Apparently he was recently taken off his lorazepam prescription by his primary care physician He is continuously requesting oral lorazepam in the hospital, stating that all of his symptoms are secondary to stopping his medication I believe this patient is psychologically dependent and not physically dependent on this medication He is now receiving 0.5mg Lorazepam PO TID and his tachycardia and tachypnea have significantly improved with a resulting improvement in his oxygen saturation and respiratory status This patient will require close outpatient follow up to ensure he is not repeatedly in the hospital secondary to not having his benzodiazepines, as he stated he will be if he does not get them (5) DVT prophylaxis Current Visit: Yes Status: Acute Assessment and Plan: 5000 units heparin subcutaneous every 12 hours (6) Hypertension Current Visit: Yes Status: Acute Assessment and Plan: Patient has history of hypertension, blood pressures have been stable here around 115/75 We will hold home hypertensive medications and continue to monitor (7) Elevated troponin Current Visit: Yes Status: Resolved Assessment and Plan: Troponin was mildly elevated at admission and trended down Patient did not exhibit signs or symptoms of ACS EKG readings at admission within normal limits Resolved (8) Anxiety Current Visit: Yes Status: Chronic Assessment and Plan: Patient has history of chronic anxiety for which he takes lorazepam Plan as seen above - Time Spent with Patient Total time spent is greater than 50% in coordination of care (as documented) at patient's floor/unit and/or counseling patient: Internal Medicine: Result - Labs CBC & Chem 7: 03/01/18 04:19 03/01/18 04:19 Labs: Short CBC 03/01/18 Range/Units 04:19 WBC 9.6 (4.3-11.1) K/mcL Hgb 11.3 L (12.9-16.9) g/dL Hct 35.9 L (37.5-50.1) % Plt Count 198 (140-400) K/mcL Neutrophils # 8.5 (1.6-8.9) K/mcL BMP 03/01/18 04:19 Sodium 139 Potassium 4.9 Chloride 101 Carbon Dioxide 35 H BUN 19 Creatinine 0.68 L Glucose 182 H Calcium 9.6 Liver Function 03/01/18 Range/Units 04:19 Total Bilirubin 0.3 (0.3-1.0) mg/dL AST 23 (13-39) Units/L ALT 18 (7-52) Units/L Alkaline Phosphatase 34 (34-104) Units/L Albumin 3.2 L (3.5-5.7) g/dL - ABG Interpretation ABG results: ABG ABG pH 7.35 pH Units (7.32-7.45) 02/27/18 05:03 ABG pCO2 60 mmHg (35-45) H 02/27/18 05:03 ABG pO2 81 mmHg (85-104) L 02/27/18 05:03 ABG O2 Saturation 95 % (95-98) 02/27/18 05:03 <Aldo Pulliam - Last Filed: 03/01/18 14:06> (7) Hypertension Qualifiers: Hypertension type: essential hypertension Qualified Code(s): I10 - Essential (primary) hypertension <Jose Richards - Last Filed: 03/01/18 16:21> (6) Hypertension Qualifiers: Hypertension type: essential hypertension Qualified Code(s): I10 - Essential (primary) hypertension
[2018-03-01] MEDS: Budesonide/Formoterol 160/4.5 1 PUFF INH IH SCH ×2 (10:55→22:23)
[2018-03-01] MEDS: predniSONE 20 MG TABLET PO SCH (12:02)
[2018-03-01] MEDS ORDERED: Tiotropium 18 MCG inhalation IH SCH (13:00)
[2018-03-01] MEDS: Loratadine 10 MG TABLET PO SCH (13:06)
[2018-03-01] MEDS ORDERED: Saline Nasal Spray 44 ML BOTTLE NS PRN (14:04)
[2018-03-01] MEDS ORDERED: Fluticasone Propionate Nasal 50 MCG/SPRAY BOTTLE NS PRN (14:04)
[2018-03-01] MEDS: Acetaminophen 325 MG TABLET PO PRN (14:41)
[2018-03-01] MEDS ORDERED: Mag Hydrox/Al Hydrox/Simeth 30 ML UDC PO PRN (15:22)
[2018-03-01] MEDS: Levalbuterol 1 PUFF INHALER IH SCH ×2 (15:47→22:21)
[2018-03-01] MEDS ORDERED: Insulin LISPRO 300 UNITS/3 ML VIAL SQ SCH (21:00)
[2018-03-01] MEDS ORDERED: *HR* LORazepam 2 MG/ML VIAL IVP ONE (22:15)
[2018-03-02] MEDS ORDERED: diazePAM 10 MG/2 ML SYRINGE IVP ONE (02:10)
--- NOTE | 2018-03-02 02:58 | Event Note ---
Date of Encounter: 03/02/18 Time of Encounter: 01:06 Alerted by charge nurse PAULY Wallace that the pt. wished to speak to a provider regarding his current care. Pt. had called the hospital [facility], Security, and the ER multiple times stating that he could not breathe and no one was listening to him or taking care of him. Pt. also threatened to call 911. Went to see the pt. who was resting in bed but was mildly dyspneic. I asked the pt. to tell me what was wrong and how I could help him. He stated that he takes an inhaler in the a.m. and one before bedtime and takes breathing txs throughout the day as needed for his SOB. I asked the pt. what would help to ease his anxiety and help him to sleep overnight. He stated he wanted his breathing txs back. I stated that I would stop the duplicate inhaler and order breathing treatments as well as a Respiratory Therapy consult to add flutter valve to his txs d/t his cough. The pt. stated he did not want Mucinex as it hurts his throat. Xopenex 1.25 mg IH Q6HR were ordered and RT was called. While in the room the pt. was coughing up sputum. I told him I would order a sputum culture as well. Respiratory Infection panel ordered on 02/26 was positive for Streptococcus sp PCR. Pt. stated that he felt better about having the breathing txs and the new plan of care. Alerted by charge nurse at 01:57 that Security was called by pt. about not yet having his breathing tx. Went to see pt. and explained that the tx would be in two hours d/t his having the Xopenex inhaler recently. Discussed giving a low dose of IVP Valium w/the pt. for anxiety to which pt. agreed. 2.0 mg IVP Valium ordered. Continuous SpO2 monitoring ordered. Will continue to check in on pt. periodically overnight.
[2018-03-02] MEDS: Levalbuterol Neb 1.25 MG/3 ML IH SCH ×4 (04:05→16:12)
[2018-03-02 05:48] LABS: Basophils % 0.2 %; Eosinophils % 0.1 %; Hematocrit 37.1 % (37.5-50.1); Hemoglobin 12.1 g/dL (12.9-16.9); Immature Granulocytes % 0.6 % (0-4); Lymphocytes % 19.2 %; Mean Corpuscular HGB Conc 32.6 g/dL (31.6-35.5); Mean Corpuscular Hemoglobin 31.5 pg (28.0-33.3); Mean Corpuscular Volume 96.6 fL (83.0-100.0); Mean Platelet Volume 9.4 fL (9.4-12.4); Monocytes # 1.4 K/mcL (0.0-1.3); Monocytes % 13.5 %; Neutrophils # 6.8 K/mcL (1.6-8.9); Nucleated Red Blood Cells 0.3 /100 WBC (0); Platelet Count 205 K/mcL (140-400); Red Blood Count 3.84 M/mcL (4.19-5.50); Red Cell Distribution Width 13.2 % (11.5-14.5); Segmented Neutrophils % 66.4 %
[2018-03-02 06:07] LABS: BUN/Creatinine Ratio 23 (6-26); Blood Urea Nitrogen 16 mg/dL (8-23); Calcium 9.8 mg/dL (8.6-10.3); Carbon Dioxide 39 mEq/L (23-29); Chloride 98 mEq/L (98-107); Glucose 124 mg/dL (70-105); Osmolality,Calculated 291 (280-300); Potassium 4.1 mEq/L (3.5-5.1); Sodium 139 mEq/L (136-145); eGFR For Non-African Americans > 60 (> 60)
[2018-03-02] MEDS: Loratadine 10 MG TABLET PO SCH (07:53)
[2018-03-02] MEDS: predniSONE 20 MG TABLET PO SCH (07:53)
[2018-03-02] MEDS: *HR* Heparin 5,000 UNIT/ML VIAL SQ SCH ×2 (07:53→18:20)
[2018-03-02] MEDS: *HR* LORazepam 0.5 MG TABLET PO PRN ×2 (07:54→15:33)
[2018-03-02] MEDS: Insulin LISPRO 300 UNITS/3 ML VIAL SQ SCH ×3 (08:09→18:20)
[2018-03-02] MEDS: Budesonide/Formoterol 160/4.5 1 PUFF INH IH SCH (08:45)
[2018-03-02] MEDS ORDERED: levoFLOXacin 500 MG TABLET PO SCH (09:00)
[2018-03-02] MEDS ORDERED: Tiotropium 18 MCG inhalation IH SCH (10:00)
--- NOTE | 2018-03-02 14:16 | Discharge Summary ---
<Aldo Pulliam - Last Filed: 03/02/18 16:37> Orders not resulted at time of discharge: Pending orders 02/28/18 09:21 Culture,Blood [BC] Stat 03/02/18 01:22 Sputum Culture [Culture,Sputum with Gram Stain] [] Stat Date of Encounter: 03/02/18 - Discharge Diagnosis (1) Anxiety Priority: Secondary Status: Chronic (2) Tobacco abuse Priority: Secondary Status: Chronic (3) Acute exacerbation of chronic obstructive airways disease Priority: Primary Status: Acute (4) Benzodiazepine dependence Priority: Secondary Status: Chronic (5) Acute on chronic respiratory failure with hypoxia and hypercapnia Priority: Primary Status: Acute (6) DVT prophylaxis Priority: Secondary Status: Acute (7) Hypertension Priority: Secondary Status: Acute Qualifiers: Hypertension type: essential hypertension Qualified Code(s): I10 - Essential (primary) hypertension (8) Elevated troponin Priority: Secondary Status: Resolved Hospital course: Mr. Andrea is a 62 year old male - Time Spent with Patient Total time spent providing and/or coordinating discharge services: 37min - Discharge Medications Prescriptions: levoFLOXacin [Levaquin] 500 mg PO DAILY 5 Days #5 tablet LORazepam [Ativan] 0.5 mg PO TID PRN 7 Days #21 tablet PRN Reason: Anxiety Home Medications: Budesonide/Formoterol 160/4.5 [Symbicort 160/4.5] 2 puff IH BID 04/07/15 [History] Roflumilast [Daliresp] 500 mcg PO DAILY 04/07/15 [History] Tiotropium [Spiriva] 1 puff IH DAILY 04/07/15 [History] Albuterol Sulfate [Ventolin Hfa] 2 puff IH Q4H PRN 03/01/16 [History] Levalbuterol HCl [Xopenex Neb] 1.25 mg IH Q8H 03/01/16 [History] Albuterol Neb [Proventil Neb] 2.5 mg IH Q4H PRN 06/02/16 [History] Cetirizine HCl [24Hour Allergy] 10 mg PO DAILY 02/26/18 [History] predniSONE [PredniSONE] 10 mg PO DAILY 02/26/18 [History] Acetaminophen [Pain Reliever] 500 mg PO Q6-8H PRN 03/01/18 [History] Fluticasone Propionate Nasal [Flonase] 2 spr NS DAILY PRN 03/01/18 [History] HydrOXYzine Pamoate [Vistaril] 50 mg PO Q8H PRN 03/01/18 [History] Omeprazole [PriLOSEC] 20 mg PO DAILY 03/01/18 [History] Saline Nasal [place] [[place] Nasal [place]] 2 spr NS Q2H PRN 03/01/18 [History] LORazepam [Ativan] 0.5 mg PO TID PRN 7 Days #21 tablet 03/02/18 [Rx] levoFLOXacin [Levaquin] 500 mg PO DAILY 5 Days #5 tablet 03/02/18 [Rx] Allergies/Adverse Reactions: Allergy/AdvReac Type Severity Reaction Status Date / Time Penicillins [PCN] AdvReac Vomiting Verified 03/01/18 12:17 Date of admission: 02/26/18 05:29 Primary care physician: Joey Townsend Consults: 02/26/18 07:08 Consult to Pulmonology [CONS] Routine Consulting Provider: [facility] [place] Reason for Consult: intubated. resp failure Call Completed: No 02/26/18 17:36 Consult to Nutrition [CONS] Routine Comment: Consulting Provider: NUTRITION Reason for Dietary Consult: Tube Feed Start & Manage 03/02/18 01:23 Consult to Respiratory Therapy [CONS] Routine Reason for Consult: Add flutter valve to breathing txs Call Completed: Yes - Constitutional Vitals: Temp Pulse Resp BP Pulse Ox 98.6 F 90 18 147/88 96 03/02/18 11:05 03/02/18 11:05 03/02/18 16:14 03/02/18 11:05 03/02/18 16:14 - Patient Status Disposition: Home Health Service - Discharge Instructions Follow Up With: Gerson Rea DO [Resident] - 03/11/18 10:00 am - Attending Attestation I examined this patient and my medical decision-making was reviewed with the Resident Physician on 03/02/18. I agree with the documented findings, disposition and treatment plan as described except to the extent set forth below. Mr Andrea has been admitted for respiratory failure related to COPD and anxiety. He was restarted on low dose Ativan with improvement. He is now on PO steroids and will be restarted on his home medications. He is afebrile and ready for discharge home. Exam alert comfortable Mucus membranes dry Heart not tachy No wheeze at this time Abd soft Plan D/C home today Restart low dose Ativan with PCP follow up. <Debbie Richardsshua Belkis - Last Filed: 03/02/18 19:57> - NOTES TO OUTPATIENT PROVIDER Notes to Outpatient Provider: Mr Andrea is a 62M PMHx COPD who was admitted for COPD exacerbation. On admission he refused BiPAP and decompensated so quickly he had to be urgently intubated. He was intubated in the ICU for one day and then successfully extubated. He spent one more day in the ICU and was then transferred to the stepdown unit, then the floor. He clinically responded well to systemic steroids and bronchodilators. However his main concern was recieving ativan. Without it he would become so agitated that his tachypnea and tachycardia from anxiety became dangerous until he was given ativan. It appears this patient is so psychologically dependent on this medication he genuinely medically needs it. Orders not resulted at time of discharge: Pending orders 02/28/18 09:21 Culture,Blood [BC] Stat 03/02/18 01:22 Sputum Culture [Culture,Sputum with Gram Stain] [RM] Stat Date of Encounter: 03/02/18 Time of Encounter: 14:15 - Discharge Diagnosis (1) Acute on chronic respiratory failure with hypoxia and hypercapnia Priority: Primary Status: Chronic Assessment and Plan: Patient transferred from [facility] ED on 02/26 for acute on chronic respiratory failure with hypoxia and hypercapnia secondary to COPD exacerbation Patient apparently has issues with tobacco abuse and home medication and BiPAP compliance, and frequently requests lorazepam Patient refused BiPAP at admission quickly decompensated and had to be urgently intubated He was successfully extubated 02/27 He was consistently tachycardic and tachypneic but this was most likely secondary to anxiety as opposed to a cardiac or pulmonary etiology He has been consistently afebrile without radiologic evidence of pneumonia and suspicion for sepsis is low CT of the chest was negative for pulmonary embolism or other acute process Blood culture positive for Streptococcus, possibly contaminant as patient did not exhibit other evidence for infection, blood cultures without growth In general the patient has significantly improved clinically, I believe part of his symptoms are secondary to anxiety and benzodiazepine dependence plan Patient transitioned to oral prednisone and oral levofloxacin Continue scheduled bronchodilator therapy home inhalers at discharge Prescribed 7 days PO lorazepam 0.5mg TID at discharge (2) Acute exacerbation of chronic obstructive airways disease Priority: Primary Status: Resolved Assessment and Plan: Plan as seen above (3) Tobacco abuse Priority: Secondary Status: Chronic Assessment and Plan: Patient has been frequently educated on the risks of tobacco use and benefits of smoking cessation (4) Benzodiazepine dependence Priority: Secondary Status: Chronic Assessment and Plan: Patient has a history of long-term chronic prescribed use of lorazepam for anxiety Apparently he was recently taken off his lorazepam prescription by his primary care physician He is continuously requesting oral lorazepam in the hospital, stating that all of his symptoms are secondary to stopping his medication I believe this patient is psychologically dependent and not physically dependent on this medication He is now receiving 0.5mg Lorazepam PO TID and his tachycardia and tachypnea have significantly improved with a resulting improvement in his oxygen saturation and respiratory status This patient will require close outpatient follow up to ensure he is not repeatedly in the hospital secondary to not having his benzodiazepines, as he stated he will be if he does not get them (5) DVT prophylaxis Priority: Secondary Status: Resolved Assessment and Plan: 5000 units heparin subcutaneous every 12 hours during hospitalization (6) Hypertension Priority: Secondary Status: Chronic Assessment and Plan: Patient has history of hypertension, blood pressures have been stable here around 115/75 Discharging on home medications Qualifiers: Hypertension type: essential hypertension Qualified Code(s): I10 - Essential (primary) hypertension (7) Elevated troponin Priority: Secondary Status: Resolved Assessment and Plan: Troponin was mildly elevated at admission and trended down Patient did not exhibit signs or symptoms of ACS EKG readings at admission within normal limits Resolved (8) Anxiety Priority: Secondary Status: Chronic Assessment and Plan: Patient has history of chronic anxiety for which he takes lorazepam Plan as seen above Hospital course: Mr. Andrea is a 62 year old male with past medical history of COPD (wears 2L of oxygen at home), tobacco abuse, hypertension, GERD. Patient was transferred to [facility] from [facility] emergency department earlier in the evening for COPD exacerbation requiring urgent intubation. He initially presented to [facility] emergency department with chief complaint of shortness of breath with exertion and anxiety. He went to [facility] ED the night prior requesting benzodiazepines and was discharged home. He reports that his shortness of breath is extreme with exertion and he starts feeling significant palpitations with exertion. He denies relief with oxygen and aerosol use at home. In [facility] emergency department, patient was noted to decompensate after standing up from the bedside. It is documented that His heart rate went up to 120s and oxygen saturation decreased to 77%. There was concern for COPD exacerbation and patient was transferred to [place] with BIPAP mask. After arriving to [facility], patient was anxious, tachycardic, shaking, had abdominal breathing and clearly appeared to be in respiratory distress. However, he refused to put BiPAP on stating that he does not needed. he repeatedly said "i don't need it i know my body." When asked about code status, he states that he would want to be full code but does not think he will need intubation. After arrival to ICU, patient's oxygen saturation's continued to decline and was exacerbated by his respiratory distress and severe anxiety. He was then urgently intubated. He was successfully extubated 02/27 and was saturating and ventilating appropriately on nasal cannula. He was consistently tachycardic and tachypneic but this was most likely secondary to anxiety as opposed to a cardiac or pulmonary etiology. He was consistently afebrile without radiologic evidence of pneumonia and suspicion for sepsis was low. CT of the chest was negative for pulmonary embolism or other acute process. Blood culture positive for Streptococcus, possibly contaminant as patient did not exhibit other evidence for infection, repeat blood cultures without growth. The patient was gradually de-escalated to oral steroids and antibiotics for discharge. Discharge discussed with: patient - Time Spent with Patient Total time spent providing and/or coordinating discharge services: Date of admission: 02/26/18 05:29 Primary care physician: Joey Townsend Consults: 02/26/18 07:08 Consult to Pulmonology [CONS] Routine Consulting Provider: [facility] [place] Reason for Consult: intubated. resp failure Call Completed: No 02/26/18 17:36 Consult to Nutrition [CONS] Routine Comment: Consulting Provider: NUTRITION Reason for Dietary Consult: Tube Feed Start & Manage 03/02/18 01:23 Consult to Respiratory Therapy [CONS] Routine Reason for Consult: Add flutter valve to breathing txs Call Completed: Yes Discharging clinician: Jose Richards Anticipated date of discharge: 03/02/18 - Constitutional Vitals: Temp Pulse Resp BP Pulse Ox 98.6 F 90 16 147/88 93 03/02/18 11:05 03/02/18 11:05 03/02/18 11:05 03/02/18 11:05 03/02/18 11:05 General appearance: Present: A&O X 3, underweight Exam: Alert and oriented Normal affect PEERL, mucous membranes dry Heart in regular rate and rhythm Normal respiratory rate, diminished lung sounds diffusely, no wheeze, no rhonchi Abdomen soft and non tender Lower extremities non-edematous Skin warm and dry - Patient Status Functional capacity at discharge: independent ambulation Overall status at discharge: patient is back to baseline - Diet and Activity Activity: resume usual activities as tolerated Diet: advance to your usual diet - VTE Documentation of Mechanical Device: Intermittent pneumatic compression device
[2018-03-02] MEDS: Acetaminophen 325 MG TABLET PO PRN (15:33)
[2018-03-02 16:39] VITALS: BP 135/77
--- NOTE | 2018-03-02 17:56 | Physician Discharge Referral ---
Home Health/Hosp Referral Info Transfer to: Home Health Attending Provider: Heraclio Provider in Charge Post Discharge: PCP - Diagnosis (1) Acute on chronic respiratory failure with hypoxia and hypercapnia Priority: Primary Status: Chronic (2) Acute exacerbation of chronic obstructive airways disease Priority: Secondary Status: Resolved (3) Tobacco abuse Priority: Secondary Status: Chronic (4) Benzodiazepine dependence Priority: Secondary Status: Chronic (5) DVT prophylaxis Priority: Secondary Status: Resolved (6) Hypertension Priority: Secondary Status: Chronic (7) Elevated troponin Priority: Secondary Status: Resolved (8) Anxiety Priority: Secondary Status: Chronic - Respiratory Orders Smoking Cessation: Smoking cessation has been advised. For more information, call the [place] Tobacco Quit Line at 2-620-KGTP-NOW. - Diet/Nutrition Diet/Nutrition Orders: No Concentrated Sweets - Activity Activity Orders: Up ad saud - Services Needed Following services are medically necessary services: Home Health Aide - Transfer Medications Prescriptions: levoFLOXacin [Levaquin] 500 mg PO DAILY 5 Days #5 tablet LORazepam [Ativan] 0.5 mg PO TID PRN 7 Days #21 tablet PRN Reason: Anxiety Home Medications: Budesonide/Formoterol 160/4.5 [Symbicort 160/4.5] 2 puff IH BID 04/07/15 [History] Roflumilast [Daliresp] 500 mcg PO DAILY 04/07/15 [History] Tiotropium [Spiriva] 1 puff IH DAILY 04/07/15 [History] Albuterol Sulfate [Ventolin Hfa] 2 puff IH Q4H PRN 03/01/16 [History] Levalbuterol HCl [Xopenex Neb] 1.25 mg IH Q8H 03/01/16 [History] Albuterol Neb [Proventil Neb] 2.5 mg IH Q4H PRN 06/02/16 [History] Cetirizine HCl [24Hour Allergy] 10 mg PO DAILY 02/26/18 [History] predniSONE [PredniSONE] 10 mg PO DAILY 02/26/18 [History] Acetaminophen [Pain Reliever] 500 mg PO Q6-8H PRN 03/01/18 [History] Fluticasone Propionate Nasal [Flonase] 2 spr NS DAILY PRN 03/01/18 [History] HydrOXYzine Pamoate [Vistaril] 50 mg PO Q8H PRN 03/01/18 [History] Omeprazole [PriLOSEC] 20 mg PO DAILY 03/01/18 [History] Saline Nasal [place] [[place] Nasal [place]] 2 spr NS Q2H PRN 03/01/18 [History] LORazepam [Ativan] 0.5 mg PO TID PRN 7 Days #21 tablet 03/02/18 [Rx] levoFLOXacin [Levaquin] 500 mg PO DAILY 5 Days #5 tablet 03/02/18 [Rx] Allergies/Adverse Reactions: Allergy/AdvReac Type Severity Reaction Status Date / Time Penicillins [PCN] AdvReac Vomiting Verified 03/01/18 12:17 Certification: Further, I certify that my clinical findings support that this patient is homebound (i.e. absences from home require considerable and taxing effort and are for medical reasons or jew services or infrequently or short duration when for other reasons) because: Due to patients severe limit in pulmonary functional capacity secondary to COPD he requires assistance in activities of daily living Homebound Reason: Severity of cardiac or pulmonary status limits activity tolerance Attestation: My signature below is to certify that this patient is under my care and that I, or nurse practitioner, or a physician's assistant accounting manager working with me, has a [id number] encounter with this patient.
== END 2018-03-02 18:46 | disposition home health service (06) | DRG 208 ==
LOC: 2NENU → ICNU 05:01 → SUATTDRO 05:29 → 2ANU 02-28 17:20 → 2NNU 02-28 20:20 → 2ANU 03-01 16:27
PROVIDERS: ADMIT Internal Medicine; ATTEND Internal Medicine

== ENCOUNTER 2019-04-08 11:56 | Observation (INO) ==
[2019-04-08] MEDS ORDERED: Naloxone 0.4 MG/ML INJ IVP PRN (15:41)
[2019-04-08] MEDS ORDERED: *HR* Metoprolol 5 MG/5 ML VIAL IVP PRN (15:46)
[2019-04-08] MEDS: Ipratropium Neb 0.5 MG NEBULIZER IH SCH ×2 (15:58→20:17)
[2019-04-08] MEDS: Levalbuterol Neb 0.63 MG/3 ML IH SCH ×2 (15:59→20:17)
[2019-04-08] MEDS ORDERED: Isovue-370 500 ML BOTTLE IVP ONE (16:07)
[2019-04-08 16:14] LABS: ABG Base Excess 9 mEq/L (-2 to 3); ABG HCO3 37 mEq/L (21-27); ABG Oxygen Saturation 99 % (95-98); ABG PCO2 69 mmHg (35-45); ABG PH 7.35 pH Units (7.32-7.45); ABG PO2 173 mmHg (85-104); ABG TCO2 40 mEq/L (20-26); Blood Gas Modality ST; Blood Gas VT 12 cc
[2019-04-08] MEDS: MethylPREDNISolone 40 MG/ML VIAL IVP SCH ×2 (16:27→16:43)
[2019-04-08] MEDS: *HR* Heparin 5,000 UNIT/ML VIAL SQ SCH (16:43)
[2019-04-08 17:03] LABS: Basophils % 0.1 %; Eosinophils # 0.1 K/mcL (0.0-0.6); Eosinophils % 0.5 %; Hematocrit 38.7 % (37.5-50.1); Hemoglobin 12.8 g/dL (12.9-16.9); Immature Granulocytes % 0.4 % (0-4); Lymphocytes # 1.7 K/mcL (0.6-4.6); Lymphocytes % 16.4 %; Mean Corpuscular HGB Conc 33.1 g/dL (31.6-35.5); Mean Corpuscular Hemoglobin 31.1 pg (28.0-33.3); Mean Corpuscular Volume 94.2 fL (83.0-100.0); Mean Platelet Volume 9.1 fL (9.4-12.4); Monocytes # 1.5 K/mcL (0.0-1.3); Monocytes % 14.4 %; Neutrophils # 6.9 K/mcL (1.6-8.9); Platelet Count 244 K/mcL (140-400); Red Blood Count 4.11 M/mcL (4.19-5.50); Red Cell Distribution Width 13.6 % (11.5-14.5); Segmented Neutrophils % 68.2 %; White Blood Count 10.1 K/mcL (4.3-11.1)
[2019-04-08 17:15] LABS: Prothrombin Time 11.7 Seconds (9.4-12.1)
[2019-04-08 17:18] LABS: Phosphorous 4.2 mg/dL (2.7-4.5)
[2019-04-08 17:21] LABS: Troponin I 0.06 ng/mL (< 0.04)
[2019-04-08 18:54] LABS: Adenovirus Not Detected (Not Detect); Bordetella Pertussis Not Detected (Not Detect); Chlamydophila pneumoniae Not Detected (Not Detect); Coronavirus 229E Not Detected (Not Detect); Coronavirus HKU1 Not Detected (Not Detect); Coronavirus NL63 Not Detected (Not Detect); Coronavirus OC43 Not Detected (Not Detect); Human Metapneumovirus Not Detected (Not Detect); Human Rhinovirus/Enterovirus Not Detected (Not Detect); Influenza A Subtype 2009 H1 Not Detected (Not Detect); Influenza A Untypeable Not Detected (Not Detect); Influenza B Not Detected (Not Detect); Mycoplasma pneumoniae Not Detected (Not Detect); Parainfluenza Virus 1 Not Detected (Not Detect); Parainfluenza Virus 2 Not Detected (Not Detect); Parainfluenza Virus 3 Not Detected (Not Detect); Parainfluenza Virus 4 Not Detected (Not Detect); Respiratory Syncytial Virus Not Detected (Not Detect)
[2019-04-08] MEDS: Budesonide/Formoterol 160/4.5 1 PUFF INH IH SCH (20:17)
[2019-04-09] MEDS: Ipratropium Neb 0.5 MG NEBULIZER IH SCH ×7 (00:16→23:56)
[2019-04-09] MEDS: Levalbuterol Neb 0.63 MG/3 ML IH SCH ×7 (00:16→23:56)
[2019-04-09] MEDS: MethylPREDNISolone 40 MG/ML VIAL IVP SCH ×4 (00:30→22:57)
[2019-04-09] MEDS: Saline Nasal Spray 44 ML BOTTLE NS PRN ×2 (04:44→23:11)
[2019-04-09] MEDS: *HR* Heparin 5,000 UNIT/ML VIAL SQ SCH ×2 (04:44→16:22)
[2019-04-09 07:13] LABS: BUN/Creatinine Ratio 32 (6-26); Blood Urea Nitrogen 23 mg/dL (8-23); Carbon Dioxide 37 mEq/L (23-29); Chloride 93 mEq/L (98-107); Glucose 131 mg/dL (70-105); Osmolality,Calculated 289 (280-300); Potassium 4.7 mEq/L (3.5-5.1); Sodium 137 mEq/L (136-145); eGFR For African Americans > 60 (> 60); eGFR For Non-African Americans > 60 (> 60)
[2019-04-09] MEDS: Tiotropium 18 MCG inhalation IH SCH (07:34)
[2019-04-09] MEDS: Budesonide/Formoterol 160/4.5 1 PUFF INH IH SCH ×2 (07:34→19:33)
[2019-04-09] MEDS ORDERED: Azithromycin 250 MG TABLET PO ONE (07:49)
[2019-04-09] MEDS ORDERED: levoFLOXacin 750 MG TABLET PO SCH (09:00)
[2019-04-09] MEDS ORDERED: NON-FORMULARY MEDICATION 1 EACH EACH (Roflumilast [Daliresp] 500 MCG) PO SCH (09:00)
[2019-04-09] MEDS: Fluticasone Propionate Nasal 50 MCG/SPRAY BOTTLE NS PRN (09:09)
[2019-04-09] MEDS: hydrOXYzine pamoate 25 MG CAPSULE PO PRN (09:09)
[2019-04-09] MEDS: Acetaminophen 325 MG TABLET PO PRN (12:07)
[2019-04-10] MEDS: Ipratropium Neb 0.5 MG NEBULIZER IH SCH ×6 (04:16→23:36)
[2019-04-10] MEDS: Levalbuterol Neb 0.63 MG/3 ML IH SCH ×6 (04:16→23:36)
[2019-04-10] MEDS: *HR* Heparin 5,000 UNIT/ML VIAL SQ SCH ×2 (05:46→17:38)
[2019-04-10] MEDS: Tiotropium 18 MCG inhalation IH SCH (07:25)
[2019-04-10] MEDS: Budesonide/Formoterol 160/4.5 1 PUFF INH IH SCH ×2 (07:26→19:31)
[2019-04-10] MEDS: Azithromycin 250 MG TABLET PO SCH (08:54)
[2019-04-10] MEDS: predniSONE 20 MG TABLET PO SCH (08:54)
[2019-04-10] MEDS: Saline Nasal Spray 44 ML BOTTLE NS PRN (09:00)
[2019-04-10] MEDS: Fluticasone Propionate Nasal 50 MCG/SPRAY BOTTLE NS PRN (09:00)
[2019-04-10] MEDS: Acetaminophen 325 MG TABLET PO PRN (09:17)
[2019-04-10] MEDS: hydrOXYzine pamoate 25 MG CAPSULE PO PRN ×2 (09:18→19:51)
[2019-04-11] MEDS: Ipratropium Neb 0.5 MG NEBULIZER IH SCH ×2 (03:19→07:20)
[2019-04-11] MEDS: Levalbuterol Neb 0.63 MG/3 ML IH SCH ×2 (03:19→07:20)
[2019-04-11] MEDS: Acetaminophen 325 MG TABLET PO PRN (04:15)
[2019-04-11 04:35] LABS: ABG Base Excess 7 mEq/L (-2 to 3); ABG HCO3 34 mEq/L (21-27); ABG Oxygen Saturation 95 % (95-98); ABG PCO2 61 mmHg (35-45); ABG PH 7.36 pH Units (7.32-7.45); ABG PO2 80 mmHg (85-104); ABG TCO2 36 mEq/L (20-26)
[2019-04-11 05:15] LABS: BUN/Creatinine Ratio 38 (6-26); Blood Urea Nitrogen 24 mg/dL (8-23); Calcium 10.3 mg/dL (8.6-10.3); Carbon Dioxide 36 mEq/L (23-29); Chloride 100 mEq/L (98-107); Glucose 99 mg/dL (70-105); Osmolality,Calculated 288 (280-300); Sodium 137 mEq/L (136-145); eGFR For African Americans > 60 (> 60); eGFR For Non-African Americans > 60 (> 60)
[2019-04-11] MEDS: *HR* Heparin 5,000 UNIT/ML VIAL SQ SCH (05:25)
[2019-04-11 07:21] VITALS: BP 134/72
[2019-04-11] MEDS: Budesonide/Formoterol 160/4.5 1 PUFF INH IH SCH (07:22)
[2019-04-11] MEDS: Tiotropium 18 MCG inhalation IH SCH (07:23)
[2019-04-11] MEDS: Saline Nasal Spray 44 ML BOTTLE NS PRN (08:35)
[2019-04-11] MEDS: Azithromycin 250 MG TABLET PO SCH (08:35)
[2019-04-11] MEDS: Fluticasone Propionate Nasal 50 MCG/SPRAY BOTTLE NS PRN (08:36)
[2019-04-11] MEDS: predniSONE 20 MG TABLET PO SCH (08:37)
[2019-04-11] MEDS: hydrOXYzine pamoate 25 MG CAPSULE PO PRN (08:45)
[2019-04-11] MEDS ORDERED: Levalbuterol Neb 0.63 MG/3 ML IH PRN (09:49)
[2019-04-11] MEDS ORDERED: Tiotropium 18 MCG inhalation IH SCH (10:00)
[2019-04-11] MEDS ORDERED: FLU Vac QV 19-20 (6Month+)/PF 0.5 ML SYRINGE IM ONE (10:47)
== END 2019-04-11 12:19 | disposition home or self-care (01) ==
LOC: 2ANU → SUATTDRO 15:07
PROVIDERS: ADMIT Internal Medicine; ATTEND Internal Medicine

== ENCOUNTER 2019-05-27 04:32 | Observation (INO) ==
[2019-05-27] MEDS ORDERED: Ipratropium/Albuterol Neb 3 ML IH ONE (07:08)
[2019-05-27] MEDS ORDERED: Acetaminophen 325 MG TABLET PO PRN (07:29)
[2019-05-27] MEDS ORDERED: Ondansetron 4 MG/2 ML VIAL IVP PRN (07:29)
[2019-05-27] MEDS ORDERED: Naloxone 0.4 MG/ML INJ IVP PRN (07:29)
[2019-05-27] MEDS ORDERED: Ipratropium/Albuterol Neb 3 ML IH PRN (07:32)
[2019-05-27] MEDS: Budesonide Neb 0.5 MG/2 ML IH SCH ×2 (08:07→19:38)
[2019-05-27] MEDS: Nicotine 14 MG PATCH.TD24 TD SCH (09:51)
[2019-05-27] MEDS: Loratadine 10 MG TABLET PO SCH (09:51)
[2019-05-27 09:52] LABS: BUN/Creatinine Ratio 23 (6-26); Blood Urea Nitrogen 19 mg/dL (8-23); Calcium 10.7 mg/dL (8.6-10.3); Carbon Dioxide 35 mEq/L (23-29); Chloride 99 mEq/L (98-107); Glucose 116 mg/dL (70-105); Magnesium 1.9 mg/dL (1.6-2.6); Osmolality,Calculated 295 (280-300); Potassium 5.4 mEq/L (3.5-5.1); Sodium 141 mEq/L (136-145); eGFR For African Americans > 60 (> 60); eGFR For Non-African Americans > 60 (> 60)
[2019-05-27 10:39] LABS: Basophils # 0.1 K/mcL (0.0-0.2); Basophils % 0.8 %; Hematocrit 42.1 % (37.5-50.1); Hemoglobin 13.5 g/dL (12.9-16.9); Immature Granulocytes % 0.4 % (0-4); Immature Platelets 3.2 % (1.1-6.1); Lymphocytes # 0.4 K/mcL (0.6-4.6); Lymphocytes % 4.9 %; Mean Corpuscular HGB Conc 32.1 g/dL (31.6-35.5); Mean Corpuscular Hemoglobin 31.5 pg (28.0-33.3); Mean Corpuscular Volume 98.1 fL (83.0-100.0); Mean Platelet Volume 9.7 fL (9.4-12.4); Monocytes # 0.1 K/mcL (0.0-1.3); Monocytes % 1.7 %; Neutrophils # 7.2 K/mcL (1.6-8.9); Platelet Count 225 K/mcL (140-400); Red Blood Count 4.29 M/mcL (4.19-5.50); Red Cell Distribution Width 13.5 % (11.5-14.5); Segmented Neutrophils % 92.2 %; White Blood Count 7.8 K/mcL (4.3-11.1)
[2019-05-27 11:16] LABS: Adenovirus Not Detected (Not Detect); Bordetella Pertussis Not Detected (Not Detect); Chlamydophila pneumoniae Not Detected (Not Detect); Coronavirus 229E Not Detected (Not Detect); Coronavirus HKU1 Not Detected (Not Detect); Coronavirus NL63 Not Detected (Not Detect); Coronavirus OC43 Not Detected (Not Detect); Human Metapneumovirus Not Detected (Not Detect); Human Rhinovirus/Enterovirus Not Detected (Not Detect); Influenza A Subtype 2009 H1 Not Detected (Not Detect); Influenza B Not Detected (Not Detect); Mycoplasma pneumoniae Not Detected (Not Detect); Parainfluenza Virus 1 Not Detected (Not Detect); Parainfluenza Virus 2 Not Detected (Not Detect); Parainfluenza Virus 3 Not Detected (Not Detect); Parainfluenza Virus 4 Not Detected (Not Detect); Respiratory Syncytial Virus Not Detected (Not Detect)
[2019-05-27] MEDS: *HR* Heparin 5,000 UNIT/ML VIAL SQ SCH ×2 (12:49→22:47)
[2019-05-27] MEDS ORDERED: Fluticasone Propionate Nasal 50 MCG/SPRAY BOTTLE NS PRN (13:30)
[2019-05-27] MEDS: MethylPREDNISolone 40 MG/ML VIAL IVP SCH (16:52)
[2019-05-28 02:46] LABS: Basophils % 0.3 %; Hematocrit 37.7 % (37.5-50.1); Hemoglobin 11.8 g/dL (12.9-16.9); Immature Granulocytes % 0.6 % (0-4); Lymphocytes # 1.1 K/mcL (0.6-4.6); Lymphocytes % 15.2 %; Mean Corpuscular HGB Conc 31.3 g/dL (31.6-35.5); Mean Corpuscular Hemoglobin 31.2 pg (28.0-33.3); Mean Corpuscular Volume 99.7 fL (83.0-100.0); Mean Platelet Volume 9.6 fL (9.4-12.4); Monocytes # 0.8 K/mcL (0.0-1.3); Monocytes % 11.4 %; Platelet Count 214 K/mcL (140-400); Red Blood Count 3.78 M/mcL (4.19-5.50); Red Cell Distribution Width 13.4 % (11.5-14.5); Segmented Neutrophils % 72.5 %; White Blood Count 6.9 K/mcL (4.3-11.1)
[2019-05-28 02:56] LABS: BUN/Creatinine Ratio 36 (6-26); Blood Urea Nitrogen 20 mg/dL (8-23); Carbon Dioxide 35 mEq/L (23-29); Chloride 99 mEq/L (98-107); Glucose 130 mg/dL (70-105); Magnesium 1.9 mg/dL (1.6-2.6); Osmolality,Calculated 288 (280-300); Potassium 4.3 mEq/L (3.5-5.1); Sodium 137 mEq/L (136-145); eGFR For African Americans > 60 (> 60); eGFR For Non-African Americans > 60 (> 60)
[2019-05-28] MEDS: MethylPREDNISolone 40 MG/ML VIAL IVP SCH (05:34)
[2019-05-28] MEDS: *HR* Heparin 5,000 UNIT/ML VIAL SQ SCH ×3 (05:34→20:46)
[2019-05-28] MEDS: Budesonide Neb 0.5 MG/2 ML IH SCH ×2 (07:29→20:13)
[2019-05-28] MEDS: Loratadine 10 MG TABLET PO SCH (07:50)
[2019-05-28] MEDS: Nicotine 14 MG PATCH.TD24 TD SCH (07:50)
[2019-05-28] MEDS: Azithromycin 250 MG TABLET PO SCH (09:39)
[2019-05-28] MEDS: Ipratropium/Albuterol Neb 3 ML IH SCH ×5 (11:15→23:38)
[2019-05-28] MEDS ORDERED: Lactulose Oral Soln 20 GM/30 ML UDC PO ONE (11:36)
[2019-05-28] MEDS ORDERED: *HR* LORazepam 2 MG/ML VIAL IVP PRN (14:49)
[2019-05-29 01:32] LABS: Basophils % 0.4 %; Eosinophils % 0.3 %; Hematocrit 34.8 % (37.5-50.1); Hemoglobin 11.2 g/dL (12.9-16.9); Immature Granulocytes % 0.4 % (0-4); Lymphocytes # 2.6 K/mcL (0.6-4.6); Lymphocytes % 25.5 %; Mean Corpuscular HGB Conc 32.2 g/dL (31.6-35.5); Mean Corpuscular Hemoglobin 31.3 pg (28.0-33.3); Mean Corpuscular Volume 97.2 fL (83.0-100.0); Monocytes # 1.1 K/mcL (0.0-1.3); Monocytes % 11.1 %; Neutrophils # 6.2 K/mcL (1.6-8.9); Platelet Count 221 K/mcL (140-400); Red Blood Count 3.58 M/mcL (4.19-5.50); Red Cell Distribution Width 13.5 % (11.5-14.5); Segmented Neutrophils % 62.3 %
[2019-05-29 01:53] LABS: BUN/Creatinine Ratio 32 (6-26); Blood Urea Nitrogen 25 mg/dL (8-23); Calcium 9.7 mg/dL (8.6-10.3); Carbon Dioxide 35 mEq/L (23-29); Chloride 97 mEq/L (98-107); Glucose 175 mg/dL (70-105); Magnesium 1.9 mg/dL (1.6-2.6); Osmolality,Calculated 299 (280-300); Phosphorous 3.1 mg/dL (2.7-4.5); Potassium 3.9 mEq/L (3.5-5.1); Sodium 140 mEq/L (136-145); eGFR For African Americans > 60 (> 60); eGFR For Non-African Americans > 60 (> 60)
[2019-05-29] MEDS: Ipratropium/Albuterol Neb 3 ML IH SCH ×3 (03:25→11:14)
[2019-05-29] MEDS: *HR* Heparin 5,000 UNIT/ML VIAL SQ SCH ×2 (05:01→13:05)
[2019-05-29 06:54] VITALS: BP 106/65
[2019-05-29] MEDS: Budesonide Neb 0.5 MG/2 ML IH SCH (07:31)
[2019-05-29] MEDS: Azithromycin 250 MG TABLET PO SCH (08:07)
[2019-05-29] MEDS: Loratadine 10 MG TABLET PO SCH (08:07)
[2019-05-29] MEDS: Nicotine 14 MG PATCH.TD24 TD SCH (08:08)
[2019-05-29] MEDS ORDERED: predniSONE 20 MG TABLET PO SCH (09:00)
== END 2019-05-29 13:42 | disposition home or self-care (01) ==
LOC: 2ANU → SUATTDRO 06:09
PROVIDERS: ADMIT Pharmacist; ATTEND Pharmacist

== ENCOUNTER 2019-06-20 14:45 | Inpatient (IN) ==
[2019-06-20] MEDS ORDERED: Ipratropium Neb 0.5 MG NEBULIZER IH PRN (17:48)
[2019-06-20] MEDS ORDERED: Naloxone 0.4 MG/ML INJ IVP PRN (17:54)
[2019-06-20] MEDS ORDERED: Ondansetron 4 MG/2 ML VIAL IVP PRN (17:54)
[2019-06-20] MEDS ORDERED: Acetaminophen 325 MG TABLET PO PRN (17:54)
[2019-06-20] MEDS ORDERED: Ringers Solution, Lactated 1,000 ML IVC SCH (18:00)
[2019-06-20] MEDS ORDERED: MethylPREDNISolone 40 MG/ML VIAL IVP SCH (18:00)
[2019-06-20] MEDS ORDERED: Ipratropium/Albuterol Neb 3 ML IH SCH (18:00)
[2019-06-20] MEDS: Levalbuterol Neb 0.63 MG/3 ML IH SCH ×2 (18:15→22:34)
[2019-06-20] MEDS ORDERED: Levalbuterol Neb 0.63 MG/3 ML ONE (18:23)
[2019-06-20 19:05] LABS: BUN/Creatinine Ratio 26 (6-26); Blood Urea Nitrogen 19 mg/dL (8-23); Calcium 9.7 mg/dL (8.6-10.3); Carbon Dioxide 27 mEq/L (23-29); Chloride 108 mEq/L (98-107); Glucose 95 mg/dL (70-105); Osmolality,Calculated 290 (280-300); Potassium 5.2 mEq/L (3.5-5.1); Sodium 139 mEq/L (136-145); eGFR For African Americans > 60 (> 60); eGFR For Non-African Americans > 60 (> 60)
[2019-06-20] MEDS ORDERED: cefTRIAXone 1,000 MG in Water for inj. (sterile) 10 ML IVP SCH (21:00)
[2019-06-20] MEDS: MethylPREDNISolone 40 MG/ML VIAL IVP SCH (21:45)
[2019-06-20] MEDS: Azithromycin 500 MG in 0.9 % Sodium Chloride 250 ML IVPB SCH (21:46)
[2019-06-20] MEDS: *HR* Heparin 5,000 UNIT/ML VIAL SQ SCH (21:47)
[2019-06-20] MEDS: Budesonide/Formoterol 160/4.5 1 PUFF INH IH SCH (22:34)
[2019-06-20] MEDS ORDERED: *HR* LORazepam 2 MG/ML VIAL IVP ONE (22:57)
[2019-06-21 01:23] LABS: Adenovirus Not Detected (Not Detect); Bordetella Pertussis Not Detected (Not Detect); Chlamydophila pneumoniae Not Detected (Not Detect); Coronavirus 229E Not Detected (Not Detect); Coronavirus HKU1 Not Detected (Not Detect); Coronavirus NL63 Not Detected (Not Detect); Coronavirus OC43 Not Detected (Not Detect); Human Metapneumovirus Not Detected (Not Detect); Human Rhinovirus/Enterovirus Not Detected (Not Detect); Influenza A Subtype 2009 H1 Not Detected (Not Detect); Influenza B Not Detected (Not Detect); Mycoplasma pneumoniae Not Detected (Not Detect); Parainfluenza Virus 1 Not Detected (Not Detect); Parainfluenza Virus 2 Not Detected (Not Detect); Parainfluenza Virus 3 Not Detected (Not Detect); Parainfluenza Virus 4 Not Detected (Not Detect); Respiratory Syncytial Virus Not Detected (Not Detect)
[2019-06-21 01:59] LABS: Hematocrit 36.3 % (37.5-50.1); Hemoglobin 10.9 g/dL (12.9-16.9); Immature Granulocytes % 0.5 % (0-4); Lymphocytes # 0.7 K/mcL (0.6-4.6); Lymphocytes % 12.4 %; Mean Corpuscular Volume 103.1 fL (83.0-100.0); Mean Platelet Volume 9.7 fL (9.4-12.4); Monocytes # 0.4 K/mcL (0.0-1.3); Monocytes % 6.1 %; Neutrophils # 4.7 K/mcL (1.6-8.9); Platelet Count 193 K/mcL (140-400); Red Blood Count 3.52 M/mcL (4.19-5.50); Red Cell Distribution Width 13.3 % (11.5-14.5); White Blood Count 5.7 K/mcL (4.3-11.1)
[2019-06-21 02:16] LABS: BUN/Creatinine Ratio 29 (6-26); Blood Urea Nitrogen 22 mg/dL (8-23); Calcium 9.7 mg/dL (8.6-10.3); Carbon Dioxide 30 mEq/L (23-29); Chloride 106 mEq/L (98-107); Glucose 90 mg/dL (70-105); Osmolality,Calculated 295 (280-300); Phosphorous 3.2 mg/dL (2.7-4.5); Potassium 4.9 mEq/L (3.5-5.1); Sodium 141 mEq/L (136-145); eGFR For African Americans > 60 (> 60); eGFR For Non-African Americans > 60 (> 60)
[2019-06-21] MEDS: MethylPREDNISolone 40 MG/ML VIAL IVP SCH ×3 (02:41→17:47)
[2019-06-21] MEDS: Levalbuterol Neb 0.63 MG/3 ML IH SCH ×2 (03:17→10:49)
[2019-06-21 04:05] LABS: ABG Base Excess 2 mEq/L (-2 to 3); ABG HCO3 30 mEq/L (21-27); ABG Oxygen Saturation 96 % (95-98); ABG PCO2 65 mmHg (35-45); ABG PH 7.28 pH Units (7.32-7.45); ABG PO2 92 mmHg (85-104); ABG TCO2 32 mEq/L (20-26)
[2019-06-21] MEDS: *HR* Heparin 5,000 UNIT/ML VIAL SQ SCH ×3 (05:53→21:27)
[2019-06-21] MEDS: Budesonide/Formoterol 160/4.5 1 PUFF INH IH SCH ×2 (10:49→19:50)
[2019-06-21 11:02] LABS: ABG Base Excess 4 mEq/L (-2 to 3); ABG HCO3 31 mEq/L (21-27); ABG Oxygen Saturation 96 % (95-98); ABG PCO2 61 mmHg (35-45); ABG PH 7.32 pH Units (7.32-7.45); ABG PO2 93 mmHg (85-104); ABG TCO2 33 mEq/L (20-26); Blood Gas VT 450 cc
[2019-06-21] MEDS: Cefepime HCl 1,000 MG in 0.9 % Sodium Chloride Mini Bag 100 ML IVPB SCH (12:43)
[2019-06-21] MEDS ORDERED: polyethylene glycoL 3350 17 GM POWD.PACK PO PRN (12:51)
[2019-06-21] MEDS: Ipratropium/Albuterol Neb 3 ML IH SCH ×4 (13:47→23:14)
[2019-06-21] MEDS ORDERED: *HR* LORazepam 2 MG/ML VIAL IVP ONE (20:22)
[2019-06-21] MEDS: Azithromycin 500 MG in 0.9 % Sodium Chloride 250 ML IVPB SCH (21:16)
[2019-06-22] MEDS: Cefepime HCl 1,000 MG in 0.9 % Sodium Chloride Mini Bag 100 ML IVPB SCH ×3 (00:28→23:15)
[2019-06-22 01:22] LABS: Hemoglobin 10.4 g/dL (12.9-16.9); Mean Corpuscular HGB Conc 31.5 g/dL (31.6-35.5); Mean Corpuscular Hemoglobin 31.4 pg (28.0-33.3); Mean Corpuscular Volume 99.7 fL (83.0-100.0); Mean Platelet Volume 9.8 fL (9.4-12.4); Platelet Count 202 K/mcL (140-400); Red Blood Count 3.31 M/mcL (4.19-5.50); Red Cell Distribution Width 13.2 % (11.5-14.5); White Blood Count 5.8 K/mcL (4.3-11.1)
[2019-06-22 01:42] LABS: BUN/Creatinine Ratio 46 (6-26); Blood Urea Nitrogen 29 mg/dL (8-23); Calcium 9.2 mg/dL (8.6-10.3); Carbon Dioxide 31 mEq/L (23-29); Chloride 107 mEq/L (98-107); Glucose 122 mg/dL (70-105); Osmolality,Calculated 293 (280-300); Potassium 4.4 mEq/L (3.5-5.1); Sodium 138 mEq/L (136-145); eGFR For African Americans > 60 (> 60); eGFR For Non-African Americans > 60 (> 60)
[2019-06-22] MEDS: MethylPREDNISolone 40 MG/ML VIAL IVP SCH ×3 (02:00→17:03)
[2019-06-22] MEDS: Ipratropium/Albuterol Neb 3 ML IH SCH ×6 (03:30→23:56)
[2019-06-22] MEDS: *HR* Heparin 5,000 UNIT/ML VIAL SQ SCH ×3 (04:55→20:04)
[2019-06-22] MEDS: Budesonide/Formoterol 160/4.5 1 PUFF INH IH SCH ×2 (07:52→20:24)
[2019-06-22] MEDS: Saline Nasal Spray 44 ML BOTTLE NS PRN ×2 (08:17→15:40)
[2019-06-22] MEDS: Azithromycin 500 MG in 0.9 % Sodium Chloride 250 ML IVPB SCH (20:03)
[2019-06-23] MEDS ORDERED: Naloxone 0.4 MG/ML INJ IVP PRN (01:06)
[2019-06-23] MEDS ORDERED: polyethylene glycoL 3350 17 GM POWD.PACK PO PRN (01:06)
[2019-06-23] MEDS ORDERED: Saline Nasal Spray 44 ML BOTTLE NS PRN (01:06)
[2019-06-23] MEDS ORDERED: Acetaminophen 325 MG TABLET PO PRN (03:02)
[2019-06-23] MEDS ORDERED: Ipratropium Neb 0.5 MG NEBULIZER IH PRN (03:04)
[2019-06-23] MEDS ORDERED: Ondansetron 4 MG/2 ML VIAL IVP PRN (03:05)
[2019-06-23] MEDS ORDERED: MethylPREDNISolone 40 MG/ML VIAL IVP SCH (03:15)
[2019-06-23] MEDS: Ipratropium/Albuterol Neb 3 ML IH SCH ×3 (03:36→11:34)
[2019-06-23] MEDS: *HR* Heparin 5,000 UNIT/ML VIAL SQ SCH ×3 (05:56→21:30)
[2019-06-23] MEDS: Budesonide/Formoterol 160/4.5 1 PUFF INH IH SCH ×2 (07:52→19:56)
[2019-06-23] MEDS: MethylPREDNISolone 40 MG/ML VIAL IVP SCH ×2 (10:00→17:13)
[2019-06-23] MEDS: hydrOXYzine pamoate 25 MG CAPSULE PO PRN ×2 (11:09→19:59)
[2019-06-23] MEDS ORDERED: Albuterol 2.5 MG/3 ML NEBULIZER IH PRN (11:48)
[2019-06-23] MEDS ORDERED: Cefepime HCl 1,000 MG in 0.9 % Sodium Chloride Mini Bag 100 ML IVPB SCH (12:00)
[2019-06-23] MEDS: Albuterol 2.5 MG/3 ML NEBULIZER IH SCH ×3 (16:08→23:27)
[2019-06-23] MEDS: Azithromycin 500 MG in 0.9 % Sodium Chloride 250 ML IVPB SCH (20:00)
[2019-06-23] MEDS: Cefepime HCl 2,000 MG in 0.9 % Sodium Chloride Mini Bag 100 ML IVPB SCH (20:04)
[2019-06-24 02:29] LABS: Hematocrit 34.1 % (37.5-50.1); Hemoglobin 10.7 g/dL (12.9-16.9); Mean Corpuscular HGB Conc 31.4 g/dL (31.6-35.5); Mean Corpuscular Hemoglobin 31.3 pg (28.0-33.3); Mean Corpuscular Volume 99.7 fL (83.0-100.0); Mean Platelet Volume 10.2 fL (9.4-12.4); Platelet Count 189 K/mcL (140-400); Red Blood Count 3.42 M/mcL (4.19-5.50); Red Cell Distribution Width 13.1 % (11.5-14.5); White Blood Count 6.6 K/mcL (4.3-11.1)
[2019-06-24 02:56] LABS: BUN/Creatinine Ratio 30 (6-26); Blood Urea Nitrogen 20 mg/dL (8-23); Calcium 9.7 mg/dL (8.6-10.3); Carbon Dioxide 40 mEq/L (23-29); Chloride 99 mEq/L (98-107); Glucose 213 mg/dL (70-105); Osmolality,Calculated 297 (280-300); Potassium 4.6 mEq/L (3.5-5.1); Sodium 139 mEq/L (136-145); eGFR For African Americans > 60 (> 60); eGFR For Non-African Americans > 60 (> 60)
[2019-06-24] MEDS: Albuterol 2.5 MG/3 ML NEBULIZER IH SCH ×6 (03:04→23:46)
[2019-06-24] MEDS: Cefepime HCl 2,000 MG in 0.9 % Sodium Chloride Mini Bag 100 ML IVPB SCH ×3 (05:57→22:07)
[2019-06-24] MEDS: MethylPREDNISolone 40 MG/ML VIAL IVP SCH ×2 (05:58→21:50)
[2019-06-24] MEDS: *HR* Heparin 5,000 UNIT/ML VIAL SQ SCH ×3 (05:58→22:25)
[2019-06-24] MEDS: Budesonide/Formoterol 160/4.5 1 PUFF INH IH SCH ×2 (07:08→19:20)
[2019-06-24] MEDS: Tiotropium 18 MCG inhalation IH SCH (07:09)
[2019-06-24] MEDS ORDERED: Albuterol 2.5 MG/3 ML NEBULIZER ONE (12:54)
[2019-06-24] MEDS ORDERED: *HR* Heparin 5,000 UNIT/ML VIAL ONE (12:54)
[2019-06-24] MEDS ORDERED: 0.9 % Sodium Chloride (Mini-Bag +) 100 ML IVBAG ONE (12:54)
[2019-06-24] MEDS: hydrOXYzine pamoate 25 MG CAPSULE PO PRN (19:50)
[2019-06-24] MEDS: Azithromycin 500 MG in 0.9 % Sodium Chloride 250 ML IVPB SCH (22:19)
[2019-06-25] MEDS: Albuterol 2.5 MG/3 ML NEBULIZER IH SCH ×6 (03:49→23:42)
[2019-06-25] MEDS: *HR* Heparin 5,000 UNIT/ML VIAL SQ SCH ×3 (05:49→22:30)
[2019-06-25] MEDS: MethylPREDNISolone 40 MG/ML VIAL IVP SCH (05:49)
[2019-06-25] MEDS: Cefepime HCl 2,000 MG in 0.9 % Sodium Chloride Mini Bag 100 ML IVPB SCH ×3 (05:52→20:04)
[2019-06-25] MEDS: Budesonide/Formoterol 160/4.5 1 PUFF INH IH SCH ×2 (07:41→19:39)
[2019-06-25] MEDS: Tiotropium 18 MCG inhalation IH SCH (07:41)
[2019-06-25] MEDS ORDERED: MethylPREDNISolone 40 MG/ML VIAL IVP ONE (18:00)
[2019-06-25] MEDS: Azithromycin 500 MG in 0.9 % Sodium Chloride 250 ML IVPB SCH (19:58)
[2019-06-25] MEDS ORDERED: Simethicone 80 MG TAB.CHEW PO PRN (20:17)
[2019-06-26] MEDS: Albuterol 2.5 MG/3 ML NEBULIZER IH SCH ×3 (03:18→11:21)
[2019-06-26] MEDS: *HR* Heparin 5,000 UNIT/ML VIAL SQ SCH (05:18)
[2019-06-26] MEDS: Cefepime HCl 2,000 MG in 0.9 % Sodium Chloride Mini Bag 100 ML IVPB SCH (05:18)
[2019-06-26 06:20] VITALS: BP 122/83
[2019-06-26] MEDS: Budesonide/Formoterol 160/4.5 1 PUFF INH IH SCH (07:12)
[2019-06-26] MEDS: Tiotropium 18 MCG inhalation IH SCH (07:12)
[2019-06-26] MEDS ORDERED: predniSONE 20 MG TABLET PO SCH (09:00)
== END 2019-06-26 15:03 | disposition home health service (06) | DRG 193 ==
LOC: 2NNU → SUATTDRO 16:36 → 2NENU 06-23 00:36
PROVIDERS: ADMIT Internal Medicine; ATTEND Internal Medicine

== ENCOUNTER 2020-09-16 06:08 | Inpatient (IN) ==
[2020-09-16] MEDS ORDERED: Ondansetron 4 MG/2 ML VIAL IVP PRN (08:58)
[2020-09-16] MEDS ORDERED: Naloxone 0.4 MG/ML INJ IVP PRN (08:58)
[2020-09-16] MEDS ORDERED: Ipratropium/Albuterol Neb 3 ML IH PRN (09:01)
[2020-09-16] MEDS ORDERED: Benzonatate 100 MG CAPSULE PO PRN (09:01)
[2020-09-16] MEDS: Ipratropium/Albuterol Neb 3 ML IH SCH ×3 (10:58→22:14)
[2020-09-16 11:19] LABS: ABG Base Excess 16 mEq/L (-2 to 3); ABG HCO3 47 mEq/L (21-27); ABG Oxygen Saturation 94 % (95-98); ABG PCO2 98 mmHg (35-45); ABG PH 7.29 pH Units (7.32-7.45); ABG PO2 87 mmHg (85-104); ABG TCO2 50 mEq/L (20-26); Blood Gas VT 450 cc
[2020-09-16] MEDS: MethylPREDNISolone 40 MG/ML VIAL IVP SCH (16:00)
[2020-09-16] MEDS: cefTRIAXone 1,000 MG in Water for inj. (sterile) 10 ML IVP SCH (20:25)
[2020-09-16] MEDS: *HR* Heparin 5,000 UNIT/ML VIAL SQ SCH (20:26)
[2020-09-16] MEDS: Azithromycin 500 MG in 0.9 % Sodium Chloride 250 ML IVPB SCH (20:27)
[2020-09-16] MEDS: Budesonide/Formoterol 160/4.5 1 PUFF INH IH SCH (22:14)
[2020-09-17 02:29] LABS: Hematocrit 35.1 % (37.5-50.1); Hemoglobin 10.8 g/dL (12.9-16.9); Mean Corpuscular HGB Conc 30.8 g/dL (31.6-35.5); Mean Corpuscular Hemoglobin 31.8 pg (28.0-33.3); Mean Corpuscular Volume 103.2 fL (83.0-100.0); Mean Platelet Volume 9.7 fL (9.4-12.4); Platelet Count 258 K/mcL (140-400); Red Cell Distribution Width 13.2 % (11.5-14.5); White Blood Count 8.4 K/mcL (4.3-11.1)
[2020-09-17 03:00] LABS: BUN/Creatinine Ratio 43 (6-26); Blood Urea Nitrogen 31 mg/dL (8-23); Calcium 10.7 mg/dL (8.6-10.3); Carbon Dioxide 40 mEq/L (23-29); Chloride 97 mEq/L (98-107); Glucose 142 mg/dL (70-105); Osmolality,Calculated 303 (280-300); Potassium 4.4 mEq/L (3.5-5.1); Sodium 142 mEq/L (136-145); eGFR For African Americans > 60 (> 60); eGFR For Non-African Americans > 60 (> 60)
[2020-09-17 03:02] LABS: Lymphocytes # 0.3 K/mcL (0.6-4.6); Monocytes # 0.7 K/mcL (0.0-1.3); Neutrophils # 7.4 K/mcL (1.6-8.9)
[2020-09-17 03:03] LABS: Large Platelets Present (Not Present); Platelet Estimate Normal (Normal)
[2020-09-17] MEDS: MethylPREDNISolone 40 MG/ML VIAL IVP SCH ×4 (03:50→23:34)
[2020-09-17] MEDS: Ipratropium/Albuterol Neb 3 ML IH SCH ×4 (03:54→22:32)
[2020-09-17] MEDS: *HR* Heparin 5,000 UNIT/ML VIAL SQ SCH ×2 (06:39→16:59)
[2020-09-17 08:19] LABS: ABG Base Excess 15 mEq/L (-2 to 3); ABG HCO3 43 mEq/L (21-27); ABG Oxygen Saturation 96 % (95-98); ABG PCO2 70 mmHg (35-45); ABG PH 7.39 pH Units (7.32-7.45); ABG PO2 89 mmHg (85-104); ABG TCO2 45 mEq/L (20-26); Blood Gas Modality avaps; Blood Gas VT 450 cc
[2020-09-17] MEDS: Budesonide/Formoterol 160/4.5 1 PUFF INH IH SCH ×2 (10:26→22:31)
[2020-09-17] MEDS: Tiotropium 10 INH DOSE IH SCH (10:26)
[2020-09-17] MEDS: Acetaminophen 325 MG TABLET PO PRN (10:43)
[2020-09-17] MEDS: hydrOXYzine pamoate 25 MG CAPSULE PO PRN (13:10)
[2020-09-17] MEDS: Azithromycin 500 MG in 0.9 % Sodium Chloride 250 ML IVPB SCH (23:34)
[2020-09-17] MEDS: cefTRIAXone 1,000 MG in Water for inj. (sterile) 10 ML IVP SCH (23:36)
[2020-09-18 01:16] LABS: Basophils % 0.1 %; Hematocrit 35.3 % (37.5-50.1); Hemoglobin 10.7 g/dL (12.9-16.9); Immature Granulocytes % 0.6 % (0-4); Lymphocytes # 0.7 K/mcL (0.6-4.6); Lymphocytes % 8.1 %; Mean Corpuscular HGB Conc 30.3 g/dL (31.6-35.5); Mean Corpuscular Hemoglobin 31.1 pg (28.0-33.3); Mean Corpuscular Volume 102.6 fL (83.0-100.0); Mean Platelet Volume 9.4 fL (9.4-12.4); Monocytes % 12.1 %; Neutrophils # 6.5 K/mcL (1.6-8.9); Nucleated Red Blood Cells 0.7 /100 WBC (0); Platelet Count 254 K/mcL (140-400); Red Blood Count 3.44 M/mcL (4.19-5.50); Segmented Neutrophils % 79.1 %; White Blood Count 8.3 K/mcL (4.3-11.1)
[2020-09-18 01:41] LABS: BUN/Creatinine Ratio 50 (6-26); Blood Urea Nitrogen 32 mg/dL (8-23); Calcium 9.9 mg/dL (8.6-10.3); Carbon Dioxide 41 mEq/L (23-29); Chloride 99 mEq/L (98-107); Glucose 129 mg/dL (70-105); Osmolality,Calculated 301 (280-300); Potassium 4.7 mEq/L (3.5-5.1); Sodium 141 mEq/L (136-145); eGFR For African Americans > 60 (> 60); eGFR For Non-African Americans > 60 (> 60)
[2020-09-18] MEDS: Ipratropium/Albuterol Neb 3 ML IH SCH ×4 (04:02→20:56)
[2020-09-18] MEDS: *HR* Heparin 5,000 UNIT/ML VIAL SQ SCH ×2 (05:36→17:34)
[2020-09-18] MEDS: MethylPREDNISolone 40 MG/ML VIAL IVP SCH ×2 (07:42→15:36)
[2020-09-18] MEDS: Acetaminophen 325 MG TABLET PO PRN (09:35)
[2020-09-18] MEDS: Budesonide/Formoterol 160/4.5 1 PUFF INH IH SCH ×2 (10:30→20:56)
[2020-09-18] MEDS: Tiotropium 10 INH DOSE IH SCH (10:31)
[2020-09-18] MEDS ORDERED: Simethicone 80 MG TAB.CHEW PO PRN (16:39)
[2020-09-18] MEDS: hydrOXYzine pamoate 25 MG CAPSULE PO PRN (17:47)
[2020-09-18] MEDS: Azithromycin 500 MG in 0.9 % Sodium Chloride 250 ML IVPB SCH (20:32)
[2020-09-18] MEDS: cefTRIAXone 1,000 MG in Water for inj. (sterile) 10 ML IVP SCH (22:44)
[2020-09-19 03:46] LABS: BUN/Creatinine Ratio 47 (6-26); Blood Urea Nitrogen 26 mg/dL (8-23); Calcium 9.6 mg/dL (8.6-10.3); Carbon Dioxide 40 mEq/L (23-29); Chloride 101 mEq/L (98-107); Glucose 137 mg/dL (70-105); Magnesium 2.1 mg/dL (1.6-2.6); Osmolality,Calculated 299 (280-300); Phosphorous 2.1 mg/dL (2.7-4.5); Potassium 4.8 mEq/L (3.5-5.1); Sodium 141 mEq/L (136-145); eGFR For African Americans > 60 (> 60); eGFR For Non-African Americans > 60 (> 60)
[2020-09-19] MEDS: Ipratropium/Albuterol Neb 3 ML IH SCH ×4 (04:13→21:42)
[2020-09-19] MEDS: MethylPREDNISolone 40 MG/ML VIAL IVP SCH ×2 (05:26→17:13)
[2020-09-19] MEDS: *HR* Heparin 5,000 UNIT/ML VIAL SQ SCH ×2 (05:27→17:14)
[2020-09-19] MEDS: Tiotropium 10 INH DOSE IH SCH (07:19)
[2020-09-19] MEDS: Doxycycline 100 MG in 0.9 % Sodium Chloride Mini Bag 100 ML IVPB SCH ×2 (08:48→21:35)
[2020-09-19] MEDS: Budesonide/Formoterol 160/4.5 1 PUFF INH IH SCH ×2 (10:58→21:42)
[2020-09-19] MEDS: hydrOXYzine pamoate 25 MG CAPSULE PO PRN (21:44)
[2020-09-20] MEDS: Ipratropium/Albuterol Neb 3 ML IH SCH ×4 (03:47→22:04)
[2020-09-20] MEDS: *HR* Heparin 5,000 UNIT/ML VIAL SQ SCH ×2 (05:56→17:07)
[2020-09-20] MEDS: MethylPREDNISolone 40 MG/ML VIAL IVP SCH ×2 (05:56→17:07)
[2020-09-20] MEDS: Doxycycline 100 MG in 0.9 % Sodium Chloride Mini Bag 100 ML IVPB SCH (09:13)
[2020-09-20] MEDS: Budesonide/Formoterol 160/4.5 1 PUFF INH IH SCH ×2 (10:55→22:04)
[2020-09-20] MEDS: hydrOXYzine pamoate 25 MG CAPSULE PO PRN (11:01)
[2020-09-20] MEDS: Doxycycline 100 MG CAPSULE PO SCH (22:24)
[2020-09-21] MEDS: Ipratropium/Albuterol Neb 3 ML IH SCH ×2 (04:27→11:14)
[2020-09-21] MEDS: MethylPREDNISolone 40 MG/ML VIAL IVP SCH (05:13)
[2020-09-21] MEDS: *HR* Heparin 5,000 UNIT/ML VIAL SQ SCH ×2 (05:13→05:20)
[2020-09-21] MEDS: hydrOXYzine pamoate 25 MG CAPSULE PO PRN (08:07)
[2020-09-21] MEDS: Doxycycline 100 MG CAPSULE PO SCH (08:07)
[2020-09-21 08:10] VITALS: BP 149/92
[2020-09-21] MEDS ORDERED: Fluticasone Propionate Nasal 50 MCG/SPRAY BOTTLE NS SCH (09:00)
[2020-09-21] MEDS: Budesonide/Formoterol 160/4.5 1 PUFF INH IH SCH (11:14)
== END 2020-09-21 12:17 | disposition home health service (06) | DRG 193 ==
LOC: 2NNU 08:32 → SUATTDRO 08:32 → 2NENU 09-17 20:32
PROVIDERS: ADMIT Student in an Organized Health Care Education/Training Program; ATTEND Internal Medicine

== ENCOUNTER 2021-01-30 14:58 | Inpatient (IN) ==
[2021-01-30] MEDS ORDERED: Isovue-370 500 ML BOTTLE IVP ONE (15:13)
[2021-01-30] MEDS ORDERED: Ipratropium/Albuterol Neb 3 ML IH ONE (15:13)
[2021-01-30] MEDS ORDERED: methylPREDNISolone 125 MG/2 ML VIAL IVP ONE (15:13)
[2021-01-30 15:56] LABS: Basophils # 0.1 K/mcL (0.0-0.2); Basophils % 0.7 %; Eosinophils # 0.1 K/mcL (0.0-0.6); Eosinophils % 1.4 %; Hematocrit 34.3 % (37.5-50.1); Hemoglobin 10.3 g/dL (12.9-16.9); Immature Granulocytes % 0.3 % (0-4); Lymphocytes # 1.6 K/mcL (0.6-4.6); Lymphocytes % 16.2 %; Mean Corpuscular Hemoglobin 28.8 pg (28.0-33.3); Mean Corpuscular Volume 95.8 fL (83.0-100.0); Mean Platelet Volume 8.8 fL (9.4-12.4); Monocytes # 1.3 K/mcL (0.0-1.3); Monocytes % 13.3 %; Neutrophils # 6.6 K/mcL (1.6-8.9); Platelet Count 353 K/mcL (140-400); Red Blood Count 3.58 M/mcL (4.19-5.50); Red Cell Distribution Width 12.2 % (11.5-14.5); Segmented Neutrophils % 68.1 %; White Blood Count 9.7 K/mcL (4.3-11.1)
[2021-01-30 16:06] LABS: INR 1.1
[2021-01-30 16:07] LABS: Activated Partial Thrombo Time 29.1 Seconds (26.0-36.0)
[2021-01-30 17:24] LABS: Alanine Aminotransferase 8 Units/L (7-52); Albumin 3.1 g/dL (3.5-5.7); Albumin/Globulin Ratio 0.9 (1.1-2.2); Alkaline Phosphatase 72 Units/L (34-104); Aspartate Amino Transferase 11 Units/L (13-39); BUN/Creatinine Ratio 17 (6-26); Bilirubin,Indirect 0.2 mg/dL (0.0-1.0); Bilirubin,Total 0.2 mg/dL (0.3-1.0); Blood Urea Nitrogen 10 mg/dL (8-23); Calcium 9.6 mg/dL (8.6-10.3); Carbon Dioxide 38 mEq/L (23-29); Chloride 97 mEq/L (98-107); Globulin 3.6 g/dL (2.4-3.5); Glucose 115 mg/dL (70-105); Osmolality,Calculated 292 (280-300); Potassium 4.3 mEq/L (3.5-5.1); Sodium 141 mEq/L (136-145); Total Protein 6.7 g/dL (6.4-8.9); Troponin I < 0.03 ng/mL (< 0.04); eGFR For African Americans > 60 (> 60); eGFR For Non-African Americans > 60 (> 60)
[2021-01-30] MEDS ORDERED: cefTRIAXone 2,000 MG in Water for inj. (sterile) 20 ML IVP ONE (17:29)
[2021-01-30] MEDS ORDERED: Azithromycin 500 MG in 0.9 % Sodium Chloride 250 ML IVPB ONE (17:29)
[2021-01-30 17:37] LABS: Influenza A PCR Negative (Negative); Influenza B PCR Negative (Negative); Resp. Syncytial Virus PCR Negative (Negative)
[2021-01-30 18:14] LABS: SARS-CoV-2 by PCR (In House) Negative (Negative)
[2021-01-30] MEDS ORDERED: Ondansetron 4 MG/2 ML VIAL IVP PRN (19:33)
[2021-01-30] MEDS ORDERED: Melatonin 3 MG TABLET PO PRN (19:33)
[2021-01-30] MEDS ORDERED: Naloxone 0.4 MG/ML INJ IVP PRN (19:33)
[2021-01-30] MEDS ORDERED: Ipratropium/Albuterol Neb 3 ML IH PRN (19:44)
[2021-01-30] MEDS ORDERED: *HR* LORazepam 1 MG TABLET PO ONE (21:24)
[2021-01-30] MEDS: *HR* Heparin 5,000 UNIT/ML VIAL SQ SCH (23:22)
[2021-01-31 02:54] LABS: Basophils % 0.2 %; Hematocrit 30.9 % (37.5-50.1); Hemoglobin 9.4 g/dL (12.9-16.9); Immature Granulocytes % 0.4 % (0-4); Lymphocytes # 0.4 K/mcL (0.6-4.6); Lymphocytes % 7.7 %; Mean Corpuscular HGB Conc 30.4 g/dL (31.6-35.5); Mean Corpuscular Hemoglobin 29.1 pg (28.0-33.3); Mean Corpuscular Volume 95.7 fL (83.0-100.0); Monocytes # 0.3 K/mcL (0.0-1.3); Neutrophils # 4.8 K/mcL (1.6-8.9); Platelet Count 304 K/mcL (140-400); Red Blood Count 3.23 M/mcL (4.19-5.50); Red Cell Distribution Width 12.4 % (11.5-14.5); Segmented Neutrophils % 86.7 %; White Blood Count 5.6 K/mcL (4.3-11.1)
[2021-01-31 03:19] LABS: Alanine Aminotransferase 7 Units/L (7-52); Albumin 2.9 g/dL (3.5-5.7); Albumin/Globulin Ratio 0.9 (1.1-2.2); Alkaline Phosphatase 71 Units/L (34-104); Aspartate Amino Transferase 8 Units/L (13-39); BUN/Creatinine Ratio 21 (6-26); Bilirubin,Total 0.2 mg/dL (0.3-1.0); Blood Urea Nitrogen 16 mg/dL (8-23); Calcium 9.4 mg/dL (8.6-10.3); Carbon Dioxide 35 mEq/L (23-29); Chloride 98 mEq/L (98-107); Globulin 3.1 g/dL (2.4-3.5); Glucose 307 mg/dL (70-105); Osmolality,Calculated 297 (280-300); Potassium 4.5 mEq/L (3.5-5.1); Sodium 137 mEq/L (136-145); eGFR For African Americans > 60 (> 60); eGFR For Non-African Americans > 60 (> 60)
[2021-01-31] MEDS: Ipratropium/Albuterol Neb 3 ML IH SCH ×6 (04:36→23:15)
[2021-01-31] MEDS: MethylPREDNISolone 40 MG/ML VIAL IVP SCH ×3 (05:13→18:17)
[2021-01-31] MEDS: *HR* Heparin 5,000 UNIT/ML VIAL SQ SCH ×3 (05:13→20:38)
[2021-01-31] MEDS: Budesonide/Formoterol 160/4.5 1 PUFF INH IH SCH ×2 (07:58→20:32)
[2021-01-31] MEDS: hydrOXYzine pamoate 25 MG CAPSULE PO PRN ×2 (09:10→16:55)
[2021-01-31] MEDS ORDERED: Gadolinium Contrast Agent (WT Based) IV PRN (16:52)
[2021-01-31] MEDS: Azithromycin 500 MG in 0.9 % Sodium Chloride 250 ML IVPB SCH (18:16)
[2021-02-01] MEDS: MethylPREDNISolone 40 MG/ML VIAL IVP SCH ×4 (01:05→19:57)
[2021-02-01 03:26] LABS: Basophils % 0.1 %; Hematocrit 29.1 % (37.5-50.1); Hemoglobin 8.9 g/dL (12.9-16.9); Immature Granulocytes % 0.5 % (0-4); Lymphocytes # 0.6 K/mcL (0.6-4.6); Lymphocytes % 7.5 %; Mean Corpuscular HGB Conc 30.6 g/dL (31.6-35.5); Mean Corpuscular Hemoglobin 29.6 pg (28.0-33.3); Mean Corpuscular Volume 96.7 fL (83.0-100.0); Mean Platelet Volume 9.2 fL (9.4-12.4); Monocytes # 0.5 K/mcL (0.0-1.3); Monocytes % 6.2 %; Neutrophils # 6.8 K/mcL (1.6-8.9); Platelet Count 326 K/mcL (140-400); Red Blood Count 3.01 M/mcL (4.19-5.50); Red Cell Distribution Width 12.4 % (11.5-14.5); Segmented Neutrophils % 85.7 %
[2021-02-01 03:32] LABS: BUN/Creatinine Ratio 38 (6-26); Blood Urea Nitrogen 18 mg/dL (8-23); Carbon Dioxide 35 mEq/L (23-29); Chloride 100 mEq/L (98-107); Glucose 130 mg/dL (70-105); Osmolality,Calculated 288 (280-300); Potassium 5.1 mEq/L (3.5-5.1); Sodium 137 mEq/L (136-145); eGFR For African Americans > 60 (> 60); eGFR For Non-African Americans > 60 (> 60)
[2021-02-01] MEDS: Ipratropium/Albuterol Neb 3 ML IH SCH ×6 (03:53→23:26)
[2021-02-01] MEDS: *HR* Heparin 5,000 UNIT/ML VIAL SQ SCH ×3 (06:00→22:14)
[2021-02-01] MEDS: Budesonide/Formoterol 160/4.5 1 PUFF INH IH SCH ×2 (08:01→20:25)
[2021-02-01] MEDS: hydrOXYzine pamoate 25 MG CAPSULE PO PRN (11:42)
[2021-02-01] MEDS: Azithromycin 500 MG in 0.9 % Sodium Chloride 250 ML IVPB SCH (18:25)
[2021-02-01] MEDS: Saline Nasal Spray 44 ML BOTTLE NS PRN (18:25)
[2021-02-02] MEDS: Ipratropium/Albuterol Neb 3 ML IH SCH ×6 (04:17→23:39)
[2021-02-02] MEDS: *HR* Heparin 5,000 UNIT/ML VIAL SQ SCH ×3 (05:08→20:35)
[2021-02-02] MEDS: MethylPREDNISolone 40 MG/ML VIAL IVP SCH ×3 (05:12→20:35)
[2021-02-02 06:49] LABS: Hematocrit 31.7 % (37.5-50.1); Hemoglobin 9.3 g/dL (12.9-16.9); Immature Granulocytes % 0.5 % (0-4); Lymphocytes # 0.8 K/mcL (0.6-4.6); Lymphocytes % 9.1 %; Mean Corpuscular HGB Conc 29.3 g/dL (31.6-35.5); Mean Corpuscular Hemoglobin 28.6 pg (28.0-33.3); Mean Corpuscular Volume 97.5 fL (83.0-100.0); Monocytes # 0.8 K/mcL (0.0-1.3); Monocytes % 9.2 %; Platelet Count 352 K/mcL (140-400); Red Blood Count 3.25 M/mcL (4.19-5.50); Red Cell Distribution Width 12.4 % (11.5-14.5); Segmented Neutrophils % 81.2 %; White Blood Count 8.6 K/mcL (4.3-11.1)
[2021-02-02 07:12] LABS: BUN/Creatinine Ratio 40 (6-26); Blood Urea Nitrogen 20 mg/dL (8-23); Calcium 9.6 mg/dL (8.6-10.3); Carbon Dioxide 37 mEq/L (23-29); Chloride 98 mEq/L (98-107); Glucose 109 mg/dL (70-105); Osmolality,Calculated 287 (280-300); Potassium 5.2 mEq/L (3.5-5.1); Sodium 137 mEq/L (136-145); eGFR For African Americans > 60 (> 60); eGFR For Non-African Americans > 60 (> 60)
[2021-02-02] MEDS: Budesonide/Formoterol 160/4.5 1 PUFF INH IH SCH ×2 (08:04→20:12)
[2021-02-02] MEDS: Saline Nasal Spray 44 ML BOTTLE NS PRN ×2 (13:07→17:59)
[2021-02-02] MEDS ORDERED: Pantoprazole 40 MG VIAL IVP ONE (17:46)
[2021-02-02] MEDS ORDERED: Morphine Sulfate 2 MG/ML SYRINGE IVP ONE (17:47)
[2021-02-02] MEDS: Azithromycin 500 MG in 0.9 % Sodium Chloride 250 ML IVPB SCH (17:59)
[2021-02-02] MEDS: hydrOXYzine pamoate 25 MG CAPSULE PO PRN (20:35)
[2021-02-03 01:09] LABS: Hematocrit 32.7 % (37.5-50.1); Hemoglobin 10.1 g/dL (12.9-16.9); Immature Granulocytes % 0.3 % (0-4); Lymphocytes # 0.4 K/mcL (0.6-4.6); Lymphocytes % 5.4 %; Mean Corpuscular HGB Conc 30.9 g/dL (31.6-35.5); Mean Corpuscular Hemoglobin 29.8 pg (28.0-33.3); Mean Corpuscular Volume 96.5 fL (83.0-100.0); Monocytes # 0.4 K/mcL (0.0-1.3); Monocytes % 6.5 %; Platelet Count 331 K/mcL (140-400); Red Blood Count 3.39 M/mcL (4.19-5.50); Red Cell Distribution Width 12.5 % (11.5-14.5); Segmented Neutrophils % 87.8 %; White Blood Count 6.8 K/mcL (4.3-11.1)
[2021-02-03 01:29] LABS: BUN/Creatinine Ratio 44 (6-26); Blood Urea Nitrogen 21 mg/dL (8-23); Calcium 9.4 mg/dL (8.6-10.3); Carbon Dioxide 36 mEq/L (23-29); Chloride 99 mEq/L (98-107); Glucose 150 mg/dL (70-105); Osmolality,Calculated 286 (280-300); Potassium 5.7 mEq/L (3.5-5.1); Sodium 135 mEq/L (136-145); eGFR For African Americans > 60 (> 60); eGFR For Non-African Americans > 60 (> 60)
[2021-02-03] MEDS: Ipratropium/Albuterol Neb 3 ML IH SCH ×6 (04:34→23:11)
[2021-02-03] MEDS: *HR* Heparin 5,000 UNIT/ML VIAL SQ SCH ×3 (04:37→21:51)
[2021-02-03] MEDS: MethylPREDNISolone 40 MG/ML VIAL IVP SCH ×2 (04:37→13:27)
[2021-02-03] MEDS: Budesonide/Formoterol 160/4.5 1 PUFF INH IH SCH ×2 (07:50→20:19)
[2021-02-03] MEDS ORDERED: GADOBUTROL 30 MMOL/30 ML VIAL IVP ONE (12:04)
[2021-02-03] MEDS ORDERED: *HR* HYDROcodone/Acet 5/325 mg TABLET PO ONE (14:37)
[2021-02-03] MEDS: Azithromycin 500 MG in 0.9 % Sodium Chloride 250 ML IVPB SCH (18:52)
[2021-02-03] MEDS: hydrOXYzine pamoate 25 MG CAPSULE PO PRN (23:08)
[2021-02-04] MEDS ORDERED: MethylPREDNISolone 40 MG/ML VIAL IVP SCH
[2021-02-04] MEDS: Ipratropium/Albuterol Neb 3 ML IH SCH ×4 (04:19→15:02)
[2021-02-04] MEDS: *HR* Heparin 5,000 UNIT/ML VIAL SQ SCH (05:20)
[2021-02-04 07:23] LABS: BUN/Creatinine Ratio 40 (6-26); Blood Urea Nitrogen 23 mg/dL (8-23); Calcium 9.3 mg/dL (8.6-10.3); Carbon Dioxide 43 mEq/L (23-29); Chloride 97 mEq/L (98-107); Glucose 87 mg/dL (70-105); Osmolality,Calculated 291 (280-300); Potassium 4.5 mEq/L (3.5-5.1); Sodium 139 mEq/L (136-145); eGFR For African Americans > 60 (> 60); eGFR For Non-African Americans > 60 (> 60)
[2021-02-04] MEDS: Budesonide/Formoterol 160/4.5 1 PUFF INH IH SCH (07:43)
[2021-02-04] MEDS ORDERED: predniSONE 20 MG TABLET PO SCH (09:00)
[2021-02-04] MEDS: Saline Nasal Spray 44 ML BOTTLE NS PRN (09:13)
[2021-02-04 10:27] VITALS: BP 142/76; PULSE 67; TEMP 98.1; O2SAT 97
[2021-02-04] MEDS ORDERED: polyethylene glycoL 3350 17 GM POWD.PACK PO ONE (10:46)
[2021-02-04] MEDS ORDERED: FLU Vac QV 21-22 (6Month+)/PF 0.5 ML SYRINGE IM ONE (11:43)
[2021-02-04] MEDS: hydrOXYzine pamoate 25 MG CAPSULE PO PRN (11:48)
[2021-02-04] MEDS ORDERED: Acetaminophen 325 MG TABLET PO ONE (14:06)
== END 2021-02-04 15:49 | disposition home health service (06) | DRG 190 ==
LOC: 3ANU 14:58 → EMEROOARM 14:58 → SUATTDRO 19:43 → 3ANU 20:27
PROVIDERS: ADMIT Student in an Organized Health Care Education/Training Program; ATTEND Family Medicine

== ENCOUNTER 2021-02-25 02:21 | Inpatient (IN) ==
[2021-02-25] MEDS ORDERED: 0.9 % Sodium Chloride 1,000 ML ONE (04:34)
[2021-02-25] MEDS ORDERED: methylPREDNISolone 125 MG/2 ML VIAL ONE (04:35)
[2021-02-25] MEDS ORDERED: Artificial Tears SOLN 15 ML BOTTLE BOTH EYES PRN (04:51)
[2021-02-25] MEDS: Ipratropium/Albuterol Neb 3 ML IH SCH ×6 (04:58→23:42)
[2021-02-25 05:37] LABS: ABG Base Excess 9 mEq/L (-2 to 3); ABG HCO3 40 mEq/L (21-27); ABG Oxygen Saturation 93 % (95-98); ABG PCO2 92 mmHg (35-45); ABG PH 7.25 pH Units (7.32-7.45); ABG PO2 85 mmHg (85-104); ABG TCO2 43 mEq/L (20-26); Blood Gas Modality ASSIST CONTROL; Blood Gas VT 440 cc
[2021-02-25] MEDS ORDERED: methylPREDNISolone 125 MG/2 ML VIAL IVP ONE ×2 (06:03→06:45)
[2021-02-25] MEDS ORDERED: 0.9 % Sodium Chloride 1,000 ML IVC ONE (06:03)
[2021-02-25] MEDS: Doxycycline 100 MG in 0.9 % Sodium Chloride Mini Bag 100 ML IVPB SCH ×2 (06:06→17:39)
[2021-02-25] MEDS: Norepinephrine 4 MG/254 ML IV.SOLN IVC SCH (06:06)
[2021-02-25] MEDS: FentaNYL (PF) 1,000 MCG/100 ML IV.SOLN IVC SCH ×2 (06:06→17:39)
[2021-02-25 06:17] LABS: VBG Ionized Calcium 1.33 mmol/L (1.15-1.35)
[2021-02-25] MEDS ORDERED: Naloxone 0.4 MG/ML INJ IVP PRN (06:23)
[2021-02-25 06:33] LABS: Basophils % 0.1 %; Hematocrit 31.8 % (37.5-50.1); Hemoglobin 9.2 g/dL (12.9-16.9); INR 1.1; Immature Granulocytes % 0.6 % (0-4); Lymphocytes # 0.2 K/mcL (0.6-4.6); Lymphocytes % 2.3 %; Mean Corpuscular HGB Conc 28.9 g/dL (31.6-35.5); Mean Corpuscular Hemoglobin 28.8 pg (28.0-33.3); Mean Corpuscular Volume 99.7 fL (83.0-100.0); Mean Platelet Volume 9.6 fL (9.4-12.4); Monocytes # 0.1 K/mcL (0.0-1.3); Monocytes % 1.2 %; Neutrophils # 6.6 K/mcL (1.6-8.9); Platelet Count 203 K/mcL (140-400); Prothrombin Time 12.6 Seconds (9.4-12.1); Red Blood Count 3.19 M/mcL (4.19-5.50); Red Cell Distribution Width 13.4 % (11.5-14.5); Segmented Neutrophils % 95.8 %; White Blood Count 6.9 K/mcL (4.3-11.1)
[2021-02-25 06:36] LABS: Activated Partial Thrombo Time 28.2 Seconds (26.0-36.0)
[2021-02-25 06:57] LABS: BUN/Creatinine Ratio 41 (6-26); Blood Urea Nitrogen 24 mg/dL (8-23); Calcium 9.2 mg/dL (8.6-10.3); Carbon Dioxide 39 mEq/L (23-29); Chloride 98 mEq/L (98-107); Glucose 143 mg/dL (70-105); Magnesium 1.9 mg/dL (1.6-2.6); Osmolality,Calculated 299 (280-300); Phosphorous 4.2 mg/dL (2.7-4.5); Potassium 5.3 mEq/L (3.5-5.1); Sodium 141 mEq/L (136-145); eGFR For African Americans > 60 (> 60); eGFR For Non-African Americans > 60 (> 60)
[2021-02-25 07:12] LABS: Bilirubin,Urine Negative (Negative); Blood,Urine Trace (Negative); Clarity,Urine Turbid (Clear); Color,Urine Yellow (Yellow); Glucose,Urine (UA) 30 mg/dL (Normal); Hyaline Casts,Urine Many per lpf (None Seen); Ketones,Urine Negative (Negative); Leukocyte Esterase,Urine Negative (Negative); Mucus,Urine Many per lpf (None-Few); Nitrite,Urine Negative (Negative); PH,Urine 5.5 pH Units (5.0-8.0); Protein,Urine 50 mg/dL (Neg-Trace); RBC,Urine 30-50 per hpf (0-3); Specific Gravity,Urine 1.028 (1.010-1.025); Squamous Epithelial Cell,Urine Few per hpf (None-Few); Urobilinogen,Urine Normal (Normal)
[2021-02-25] MEDS ORDERED: methylPREDNISolone 125 MG/2 ML VIAL IVP SCH (08:00)
[2021-02-25] MEDS: Pantoprazole 40 MG VIAL IVP SCH (08:50)
[2021-02-25] MEDS: Chlorhexidine Rinse 15 ML MOUTHWASH MM SCH ×2 (08:50→19:34)
[2021-02-25] MEDS: Artificial Tears SOLN 15 ML BOTTLE BOTH EYES SCH ×4 (08:50→19:34)
[2021-02-25] MEDS ORDERED: *HR* Dextrose 50 % in Water (Syg) 50 ML SYRINGE IVP PRN (09:14)
[2021-02-25] MEDS ORDERED: D5% in Water 1,000 ML IVC PRN (09:14)
[2021-02-25] MEDS ORDERED: Dextrose Gel 15 GM/37.5 ML TUBE PO PRN ×2 (09:14)
[2021-02-25] MEDS ORDERED: 0.9 % Sodium Chloride 1,000 ML IVC SCH (09:15)
[2021-02-25 10:15] LABS: ABG Base Excess 10 mEq/L (-2 to 3); ABG HCO3 42 mEq/L (21-27); ABG Oxygen Saturation 99 % (95-98); ABG PCO2 112 mmHg (35-45); ABG PH 7.19 pH Units (7.32-7.45); ABG PO2 208 mmHg (85-104); ABG TCO2 46 mEq/L (20-26)
[2021-02-25] MEDS: *HR* Enoxaparin 30 MG/0.3 ML SYRINGE SQ SCH (11:04)
[2021-02-25] MEDS: Cefepime HCl 2,000 MG in 0.9 % Sodium Chloride Mini Bag 100 ML IVPB SCH ×2 (11:06→17:40)
[2021-02-25] MEDS: methylPREDNISolone 125 MG/2 ML VIAL IVP SCH ×2 (11:14→17:39)
[2021-02-25] MEDS ORDERED: *HR* Etomidate 20 MG/10 ML AMPUL IVP ONE (12:57)
[2021-02-25] MEDS ORDERED: *HR* Rocuronium Bromide 50 MG/5 ML VIAL IVP ONE (12:57)
[2021-02-25] MEDS ORDERED: *HR* Midazolam HCl 5 MG/5 ML VIAL IVP ONE (12:57)
[2021-02-26] MEDS: methylPREDNISolone 125 MG/2 ML VIAL IVP SCH ×2 (00:13→05:16)
[2021-02-26] MEDS: Artificial Tears SOLN 15 ML BOTTLE BOTH EYES SCH ×3 (00:13→07:21)
[2021-02-26 04:01] LABS: Hematocrit 30.1 % (37.5-50.1); Immature Granulocytes % 0.7 % (0-4); Lymphocytes # 0.2 K/mcL (0.6-4.6); Lymphocytes % 2.6 %; Mean Corpuscular HGB Conc 29.9 g/dL (31.6-35.5); Mean Corpuscular Hemoglobin 28.8 pg (28.0-33.3); Mean Corpuscular Volume 96.2 fL (83.0-100.0); Mean Platelet Volume 9.6 fL (9.4-12.4); Monocytes # 0.5 K/mcL (0.0-1.3); Neutrophils # 7.6 K/mcL (1.6-8.9); Nucleated Red Blood Cells 0.5 /100 WBC (0); Platelet Count 250 K/mcL (140-400); Red Blood Count 3.13 M/mcL (4.19-5.50); Red Cell Distribution Width 14.3 % (11.5-14.5); Segmented Neutrophils % 90.7 %; White Blood Count 8.4 K/mcL (4.3-11.1)
[2021-02-26] MEDS: Ipratropium/Albuterol Neb 3 ML IH SCH ×7 (04:01→23:23)
[2021-02-26 04:11] LABS: BUN/Creatinine Ratio 48 (6-26); Blood Urea Nitrogen 35 mg/dL (8-23); Calcium 9.5 mg/dL (8.6-10.3); Carbon Dioxide 32 mEq/L (23-29); Chloride 99 mEq/L (98-107); Glucose 204 mg/dL (70-105); Osmolality,Calculated 306 (280-300); Potassium 4.5 mEq/L (3.5-5.1); Sodium 141 mEq/L (136-145); eGFR For African Americans > 60 (> 60); eGFR For Non-African Americans > 60 (> 60)
[2021-02-26 04:42] LABS: ABG Base Excess 6 mEq/L (-2 to 3); ABG HCO3 32 mEq/L (21-27); ABG Oxygen Saturation 89 % (95-98); ABG PCO2 53 mmHg (35-45); ABG PH 7.39 pH Units (7.32-7.45); ABG PO2 58 mmHg (85-104); ABG TCO2 33 mEq/L (20-26); Blood Gas VT 450 cc
[2021-02-26] MEDS: Cefepime HCl 2,000 MG in 0.9 % Sodium Chloride Mini Bag 100 ML IVPB SCH (05:14)
[2021-02-26] MEDS: Doxycycline 100 MG in 0.9 % Sodium Chloride Mini Bag 100 ML IVPB SCH (05:15)
[2021-02-26] MEDS: *HR* Enoxaparin 30 MG/0.3 ML SYRINGE SQ SCH (05:16)
[2021-02-26] MEDS: Chlorhexidine Rinse 15 ML MOUTHWASH MM SCH ×2 (07:21→20:10)
[2021-02-26] MEDS: Pantoprazole 40 MG VIAL IVP SCH (07:21)
[2021-02-26] MEDS ORDERED: hydrOXYzine pamoate 25 MG CAPSULE PO PRN (09:30)
[2021-02-26] MEDS ORDERED: Albuterol 2.5 MG/3 ML NEBULIZER IH PRN ×2 (09:30→11:51)
[2021-02-26] MEDS ORDERED: Budesonide/Formoterol 160/4.5 1 PUFF INH IH SCH (09:45)
[2021-02-26] MEDS ORDERED: Tiotropium 10 INH DOSE IH SCH (09:45)
[2021-02-26] MEDS ORDERED: D5% in Water 1,000 ML IVC PRN (11:51)
[2021-02-26] MEDS ORDERED: Artificial Tears SOLN 15 ML BOTTLE BOTH EYES PRN (11:51)
[2021-02-26] MEDS ORDERED: *HR* Dextrose 50 % in Water (Syg) 50 ML SYRINGE IVP PRN (11:51)
[2021-02-26] MEDS ORDERED: Dextrose Gel 15 GM/37.5 ML TUBE PO PRN ×2 (11:51)
[2021-02-26] MEDS ORDERED: Artificial Tears SOLN 15 ML BOTTLE BOTH EYES SCH (12:00)
[2021-02-26] MEDS: ALPRAZolam 0.25 MG TABLET PO PRN (13:03)
[2021-02-26] MEDS: Cefepime HCl 2,000 MG in Water for inj. (sterile) 20 ML IVP SCH (17:32)
[2021-02-26] MEDS ORDERED: Cefepime HCl 2,000 MG in 0.9 % Sodium Chloride Mini Bag 100 ML IVPB SCH (18:00)
[2021-02-26] MEDS: Budesonide/Formoterol 160/4.5 1 PUFF INH IH SCH (19:40)
[2021-02-26] MEDS: Doxycycline 100 MG CAPSULE PO SCH (20:11)
[2021-02-26] MEDS: hydrOXYzine pamoate 25 MG CAPSULE PO PRN (20:11)
[2021-02-27] MEDS: ALPRAZolam 0.25 MG TABLET PO PRN ×3 (01:29→18:06)
[2021-02-27] MEDS: Ipratropium/Albuterol Neb 3 ML IH SCH ×6 (03:21→23:39)
[2021-02-27] MEDS: *HR* Enoxaparin 30 MG/0.3 ML SYRINGE SQ SCH (05:58)
[2021-02-27] MEDS: Cefepime HCl 2,000 MG in Water for inj. (sterile) 20 ML IVP SCH ×2 (05:58→18:05)
[2021-02-27] MEDS: Budesonide/Formoterol 160/4.5 1 PUFF INH IH SCH ×2 (07:20→19:42)
[2021-02-27] MEDS: predniSONE 20 MG TABLET PO SCH (08:35)
[2021-02-27] MEDS: Doxycycline 100 MG CAPSULE PO SCH ×2 (08:35→20:30)
[2021-02-27] MEDS: Chlorhexidine Rinse 15 ML MOUTHWASH MM SCH ×2 (08:35→20:30)
[2021-02-27] MEDS ORDERED: Tiotropium 10 INH DOSE IH SCH (09:00)
[2021-02-27] MEDS ORDERED: Saline Nasal Spray 44 ML BOTTLE NS PRN (10:23)
[2021-02-27] MEDS: Dexmedetomidine HCl 400 MCG/100 ML MLS IVC SCH (14:24)
[2021-02-27] MEDS ORDERED: Ondansetron 4 MG/2 ML VIAL IVP PRN (20:21)
[2021-02-27 20:27] LABS: Basophils % 0.1 %; Red Cell Distribution Width 14.3 % (11.5-14.5)
[2021-02-27 20:28] LABS: Hematocrit 33.8 % (37.5-50.1); Hemoglobin 9.9 g/dL (12.9-16.9); Immature Granulocytes % 1.3 % (0-4); Lymphocytes # 0.4 K/mcL (0.6-4.6); Lymphocytes % 3.7 %; Mean Corpuscular HGB Conc 29.3 g/dL (31.6-35.5); Mean Corpuscular Hemoglobin 28.8 pg (28.0-33.3); Mean Corpuscular Volume 98.3 fL (83.0-100.0); Mean Platelet Volume 9.7 fL (9.4-12.4); Monocytes # 0.5 K/mcL (0.0-1.3); Monocytes % 5.3 %; Neutrophils # 8.6 K/mcL (1.6-8.9); Nucleated Red Blood Cells 0.2 /100 WBC (0); Platelet Count 260 K/mcL (140-400); Red Blood Count 3.44 M/mcL (4.19-5.50); Segmented Neutrophils % 89.6 %; White Blood Count 9.6 K/mcL (4.3-11.1)
[2021-02-27] MEDS: Pantoprazole 40 MG VIAL IVP SCH (20:30)
[2021-02-27] MEDS: hydrOXYzine pamoate 25 MG CAPSULE PO PRN (20:30)
[2021-02-27 20:43] LABS: BUN/Creatinine Ratio 55 (6-26); Blood Urea Nitrogen 30 mg/dL (8-23); Calcium 9.8 mg/dL (8.6-10.3); Carbon Dioxide 41 mEq/L (23-29); Chloride 100 mEq/L (98-107); Glucose 179 mg/dL (70-105); Osmolality,Calculated 305 (280-300); Phosphorous 2.7 mg/dL (2.7-4.5); Potassium 5.4 mEq/L (3.5-5.1); Sodium 142 mEq/L (136-145); eGFR For African Americans > 60 (> 60); eGFR For Non-African Americans > 60 (> 60)
[2021-02-28] MEDS: Ipratropium/Albuterol Neb 3 ML IH SCH ×6 (03:32→23:50)
[2021-02-28 04:19] LABS: Basophils % 0.1 %; Hemoglobin 8.4 g/dL (12.9-16.9); Immature Granulocytes % 0.6 % (0-4); Lymphocytes # 0.7 K/mcL (0.6-4.6); Lymphocytes % 8.8 %; Mean Corpuscular Volume 96.6 fL (83.0-100.0); Monocytes # 0.7 K/mcL (0.0-1.3); Monocytes % 9.3 %; Neutrophils # 6.3 K/mcL (1.6-8.9); Nucleated Red Blood Cells 0.4 /100 WBC (0); Platelet Count 225 K/mcL (140-400); Red Cell Distribution Width 14.2 % (11.5-14.5); Segmented Neutrophils % 81.2 %; White Blood Count 7.8 K/mcL (4.3-11.1)
[2021-02-28 04:25] LABS: BUN/Creatinine Ratio 66 (6-26); Blood Urea Nitrogen 31 mg/dL (8-23); Calcium 9.9 mg/dL (8.6-10.3); Carbon Dioxide 41 mEq/L (23-29); Chloride 100 mEq/L (98-107); Glucose 129 mg/dL (70-105); Osmolality,Calculated 302 (280-300); Phosphorous 2.6 mg/dL (2.7-4.5); Potassium 4.5 mEq/L (3.5-5.1); Sodium 142 mEq/L (136-145); eGFR For African Americans > 60 (> 60); eGFR For Non-African Americans > 60 (> 60)
[2021-02-28 04:50] LABS: ABG Base Excess 12 mEq/L (-2 to 3); ABG HCO3 39 mEq/L (21-27); ABG Oxygen Saturation 84 % (95-98); ABG PCO2 69 mmHg (35-45); ABG PH 7.36 pH Units (7.32-7.45); ABG PO2 53 mmHg (85-104); ABG TCO2 41 mEq/L (20-26)
[2021-02-28] MEDS: Dexmedetomidine HCl 400 MCG/100 ML MLS IVC SCH (05:03)
[2021-02-28] MEDS: *HR* Enoxaparin 30 MG/0.3 ML SYRINGE SQ SCH (05:04)
[2021-02-28] MEDS: Cefepime HCl 2,000 MG in Water for inj. (sterile) 20 ML IVP SCH ×2 (05:04→16:00)
[2021-02-28] MEDS: hydrOXYzine pamoate 25 MG CAPSULE PO PRN ×3 (05:30→23:00)
[2021-02-28] MEDS: Pantoprazole 40 MG VIAL IVP SCH (08:21)
[2021-02-28] MEDS: predniSONE 20 MG TABLET PO SCH (08:22)
[2021-02-28] MEDS: Doxycycline 100 MG CAPSULE PO SCH ×2 (08:22→20:19)
[2021-02-28] MEDS: Chlorhexidine Rinse 15 ML MOUTHWASH MM SCH ×2 (08:23→20:19)
[2021-02-28] MEDS: Budesonide/Formoterol 160/4.5 1 PUFF INH IH SCH ×2 (08:31→19:39)
[2021-02-28] MEDS: ALPRAZolam 0.25 MG TABLET PO PRN ×2 (10:07→22:59)
[2021-03-01 03:25] LABS: Basophils % 0.1 %; Eosinophils % 0.1 %; Hematocrit 31.6 % (37.5-50.1); Hemoglobin 9.3 g/dL (12.9-16.9); Immature Granulocytes % 0.8 % (0-4); Lymphocytes # 1.2 K/mcL (0.6-4.6); Lymphocytes % 12.8 %; Mean Corpuscular HGB Conc 29.4 g/dL (31.6-35.5); Mean Corpuscular Hemoglobin 28.4 pg (28.0-33.3); Mean Corpuscular Volume 96.6 fL (83.0-100.0); Mean Platelet Volume 10.1 fL (9.4-12.4); Monocytes # 0.9 K/mcL (0.0-1.3); Monocytes % 10.1 %; Neutrophils # 6.9 K/mcL (1.6-8.9); Nucleated Red Blood Cells 0.4 /100 WBC (0); Platelet Count 233 K/mcL (140-400); Red Blood Count 3.27 M/mcL (4.19-5.50); Segmented Neutrophils % 76.1 %
[2021-03-01 03:40] LABS: BUN/Creatinine Ratio 67 (6-26); Blood Urea Nitrogen 30 mg/dL (8-23); Calcium 9.6 mg/dL (8.6-10.3); Carbon Dioxide 45 mEq/L (23-29); Chloride 97 mEq/L (98-107); Glucose 110 mg/dL (70-105); Magnesium 1.9 mg/dL (1.6-2.6); Osmolality,Calculated 301 (280-300); Phosphorous 2.4 mg/dL (2.7-4.5); Potassium 4.8 mEq/L (3.5-5.1); Sodium 142 mEq/L (136-145); eGFR For African Americans > 60 (> 60); eGFR For Non-African Americans > 60 (> 60)
[2021-03-01] MEDS: Ipratropium/Albuterol Neb 3 ML IH SCH ×2 (04:04→07:45)
[2021-03-01] MEDS: Cefepime HCl 2,000 MG in Water for inj. (sterile) 20 ML IVP SCH ×2 (04:38→18:06)
[2021-03-01] MEDS: *HR* Enoxaparin 30 MG/0.3 ML SYRINGE SQ SCH (04:43)
[2021-03-01] MEDS: Dexmedetomidine HCl 400 MCG/100 ML MLS IVC SCH (07:10)
[2021-03-01] MEDS: Budesonide/Formoterol 160/4.5 1 PUFF INH IH SCH ×2 (07:46→19:33)
[2021-03-01] MEDS: Doxycycline 100 MG CAPSULE PO SCH ×2 (07:56→19:47)
[2021-03-01] MEDS: predniSONE 20 MG TABLET PO SCH (07:56)
[2021-03-01] MEDS: Chlorhexidine Rinse 15 ML MOUTHWASH MM SCH ×2 (07:57→19:48)
[2021-03-01] MEDS: hydrOXYzine pamoate 25 MG CAPSULE PO PRN ×2 (07:57→15:46)
[2021-03-01] MEDS: Pantoprazole 40 MG VIAL IVP SCH (07:57)
[2021-03-01] MEDS: Norepinephrine 4 MG/254 ML IV.SOLN IVC SCH (08:39)
[2021-03-01] MEDS: Albuterol 2.5 MG/3 ML NEBULIZER IH SCH ×5 (11:13→23:40)
[2021-03-01] MEDS: Tiotropium 10 INH DOSE IH SCH (11:19)
[2021-03-01] MEDS: Acetylcysteine 10% 2 ML INHSOL IH SCH ×2 (11:34→19:30)
[2021-03-01] MEDS: ALPRAZolam 0.25 MG TABLET PO PRN (14:24)
[2021-03-02] MEDS: Dexmedetomidine HCl 400 MCG/100 ML MLS IVC SCH (02:34)
[2021-03-02] MEDS: ALPRAZolam 0.25 MG TABLET PO PRN ×2 (02:34→12:16)
[2021-03-02 03:07] LABS: Basophils % 0.2 %; Eosinophils # 0.1 K/mcL (0.0-0.6); Eosinophils % 0.7 %; Hematocrit 32.1 % (37.5-50.1); Hemoglobin 9.6 g/dL (12.9-16.9); Immature Granulocytes % 0.8 % (0-4); Lymphocytes # 1.2 K/mcL (0.6-4.6); Mean Corpuscular HGB Conc 29.9 g/dL (31.6-35.5); Mean Platelet Volume 9.8 fL (9.4-12.4); Monocytes # 1.3 K/mcL (0.0-1.3); Neutrophils # 9.4 K/mcL (1.6-8.9); Nucleated Red Blood Cells 0.4 /100 WBC (0); Platelet Count 271 K/mcL (140-400); Red Blood Count 3.31 M/mcL (4.19-5.50); Red Cell Distribution Width 14.2 % (11.5-14.5); Segmented Neutrophils % 77.3 %; White Blood Count 12.2 K/mcL (4.3-11.1)
[2021-03-02 03:29] LABS: BUN/Creatinine Ratio 72 (6-26); Blood Urea Nitrogen 33 mg/dL (8-23); Calcium 9.5 mg/dL (8.6-10.3); Carbon Dioxide 42 mEq/L (23-29); Chloride 98 mEq/L (98-107); Glucose 150 mg/dL (70-105); Magnesium 1.9 mg/dL (1.6-2.6); Osmolality,Calculated 306 (280-300); Phosphorous 3.1 mg/dL (2.7-4.5); Potassium 4.9 mEq/L (3.5-5.1); Sodium 143 mEq/L (136-145); eGFR For African Americans > 60 (> 60); eGFR For Non-African Americans > 60 (> 60)
[2021-03-02] MEDS: Albuterol 2.5 MG/3 ML NEBULIZER IH SCH ×5 (03:40→19:44)
[2021-03-02] MEDS: Acetylcysteine 10% 2 ML INHSOL IH SCH (03:41)
[2021-03-02] MEDS: Cefepime HCl 2,000 MG in Water for inj. (sterile) 20 ML IVP SCH ×2 (04:27→16:08)
[2021-03-02] MEDS: *HR* Enoxaparin 30 MG/0.3 ML SYRINGE SQ SCH (04:28)
[2021-03-02] MEDS: Budesonide/Formoterol 160/4.5 1 PUFF INH IH SCH ×2 (07:33→19:42)
[2021-03-02] MEDS: Tiotropium 10 INH DOSE IH SCH (07:35)
[2021-03-02] MEDS: Pantoprazole 40 MG VIAL IVP SCH (08:30)
[2021-03-02] MEDS: Doxycycline 100 MG CAPSULE PO SCH ×3 (08:30→21:20)
[2021-03-02] MEDS: predniSONE 20 MG TABLET PO SCH (08:30)
[2021-03-02] MEDS: Chlorhexidine Rinse 15 ML MOUTHWASH MM SCH ×2 (08:31→20:15)
[2021-03-02] MEDS: hydrOXYzine pamoate 25 MG CAPSULE PO PRN (10:42)
[2021-03-02] MEDS: *HR* LORazepam 2 MG/ML VIAL IVP PRN (13:40)
[2021-03-02 21:40] LABS: BUN/Creatinine Ratio 77 (6-26); Blood Urea Nitrogen 37 mg/dL (8-23); Calcium 9.9 mg/dL (8.6-10.3); Carbon Dioxide > 45 mEq/L (23-29); Chloride 95 mEq/L (98-107); Glucose 123 mg/dL (70-105); Osmolality,Calculated 304 (280-300); Potassium 5.3 mEq/L (3.5-5.1); Sodium 142 mEq/L (136-145); Troponin I 0.05 ng/mL (< 0.04); eGFR For African Americans > 60 (> 60); eGFR For Non-African Americans > 60 (> 60)
[2021-03-02 22:22] LABS: VBG HCO3 45 mEq/L (21-27); VBG PCO2 91 mmHg (41-51); VBG PH 7.31 pH Units (7.32-7.42); VBG PO2 58 mmHg (25-50)
[2021-03-02] MEDS ORDERED: Insulin LISPRO 300 UNITS/3 ML VIAL SUBQ ONE (23:04)
[2021-03-02] MEDS ORDERED: *HR* Dextrose 25% in Water (Syg) 10 ML SYRINGE IVP ONE (23:05)
[2021-03-02] MEDS: Calcium Gluconate 1gm/50mL 1 GM/50 ML BAG IVPB SCH (23:53)
[2021-03-03] MEDS: Albuterol 2.5 MG/3 ML NEBULIZER IH SCH ×7 (00:19→23:44)
[2021-03-03 00:49] LABS: ABG Base Excess 15 mEq/L (-2 to 3); ABG HCO3 43 mEq/L (21-27); ABG Oxygen Saturation 99 % (95-98); ABG PCO2 67 mmHg (35-45); ABG PH 7.41 pH Units (7.32-7.45); ABG PO2 167 mmHg (85-104); ABG TCO2 45 mEq/L (20-26); Blood Gas VT 460 cc
[2021-03-03] MEDS: SODIUM ZIRCONIUM CYCLOSILICATE 5 GM POWD.PACK PO SCH ×2 (00:56→08:24)
[2021-03-03] MEDS: Calcium Gluconate 1gm/50mL 1 GM/50 ML BAG IVPB SCH (00:58)
[2021-03-03 03:16] LABS: Basophils % 0.3 %; Eosinophils % 0.1 %; Hematocrit 34.3 % (37.5-50.1); Lymphocytes # 1.2 K/mcL (0.6-4.6); Lymphocytes % 10.2 %; Mean Corpuscular HGB Conc 29.2 g/dL (31.6-35.5); Mean Corpuscular Hemoglobin 29.1 pg (28.0-33.3); Mean Corpuscular Volume 99.7 fL (83.0-100.0); Monocytes # 1.1 K/mcL (0.0-1.3); Neutrophils # 9.5 K/mcL (1.6-8.9); Nucleated Red Blood Cells 0.2 /100 WBC (0); Platelet Count 264 K/mcL (140-400); Red Blood Count 3.44 M/mcL (4.19-5.50); Red Cell Distribution Width 14.1 % (11.5-14.5); Segmented Neutrophils % 79.4 %
[2021-03-03 03:58] LABS: BUN/Creatinine Ratio 97 (6-26); Blood Urea Nitrogen 34 mg/dL (8-23); Carbon Dioxide > 45 mEq/L (23-29); Chloride 96 mEq/L (98-107); Glucose 60 mg/dL (70-105); Osmolality,Calculated 307 (280-300); Phosphorous 2.9 mg/dL (2.7-4.5); Sodium 146 mEq/L (136-145); eGFR For African Americans > 60 (> 60); eGFR For Non-African Americans > 60 (> 60)
[2021-03-03] MEDS: *HR* Enoxaparin 30 MG/0.3 ML SYRINGE SQ SCH (05:09)
[2021-03-03] MEDS: Cefepime HCl 2,000 MG in Water for inj. (sterile) 20 ML IVP SCH ×2 (05:09→17:53)
[2021-03-03] MEDS: Tiotropium 10 INH DOSE IH SCH (07:57)
[2021-03-03] MEDS: Budesonide/Formoterol 160/4.5 1 PUFF INH IH SCH ×2 (07:57→19:39)
[2021-03-03] MEDS: predniSONE 20 MG TABLET PO SCH (08:24)
[2021-03-03] MEDS: Pantoprazole 40 MG VIAL IVP SCH (08:24)
[2021-03-03] MEDS: Doxycycline 100 MG CAPSULE PO SCH ×2 (08:25→20:40)
[2021-03-03] MEDS: Chlorhexidine Rinse 15 ML MOUTHWASH MM SCH ×2 (08:25→20:40)
[2021-03-03] MEDS ORDERED: MOM Conc 10 ML UD.LIQ PO ONE (09:03)
[2021-03-03] MEDS: *HR* LORazepam 2 MG/ML VIAL IVP PRN (09:47)
[2021-03-04] MEDS: Albuterol 2.5 MG/3 ML NEBULIZER IH SCH ×6 (03:18→23:38)
[2021-03-04 04:43] LABS: Eosinophils % 0.2 %; Lymphocytes % 7.9 %; Mean Corpuscular Volume 100.6 fL (83.0-100.0); Mean Platelet Volume 10.2 fL (9.4-12.4); Monocytes % 9.2 %; Nucleated Red Blood Cells 0.3 /100 WBC (0)
[2021-03-04 04:45] LABS: Basophils % 0.2 %; Hematocrit 34.2 % (37.5-50.1); Hemoglobin 9.7 g/dL (12.9-16.9); Mean Corpuscular HGB Conc 28.4 g/dL (31.6-35.5); Mean Corpuscular Hemoglobin 28.5 pg (28.0-33.3); Monocytes # 1.1 K/mcL (0.0-1.3); Platelet Count 272 K/mcL (140-400); Red Cell Distribution Width 14.3 % (11.5-14.5); Segmented Neutrophils % 81.5 %; White Blood Count 12.3 K/mcL (4.3-11.1)
[2021-03-04 05:04] LABS: BUN/Creatinine Ratio 71 (6-26); Blood Urea Nitrogen 39 mg/dL (8-23); Calcium 10.1 mg/dL (8.6-10.3); Carbon Dioxide > 45 mEq/L (23-29); Chloride 95 mEq/L (98-107); Glucose 104 mg/dL (70-105); Magnesium 2.5 mg/dL (1.6-2.6); Osmolality,Calculated 308 (280-300); Phosphorous 3.7 mg/dL (2.7-4.5); Potassium 5.4 mEq/L (3.5-5.1); Sodium 144 mEq/L (136-145); eGFR For African Americans > 60 (> 60); eGFR For Non-African Americans > 60 (> 60)
[2021-03-04] MEDS: *HR* Enoxaparin 30 MG/0.3 ML SYRINGE SQ SCH (05:26)
[2021-03-04] MEDS: Cefepime HCl 2,000 MG in Water for inj. (sterile) 20 ML IVP SCH ×2 (05:26→17:38)
[2021-03-04] MEDS: Budesonide/Formoterol 160/4.5 1 PUFF INH IH SCH ×2 (07:26→19:47)
[2021-03-04] MEDS ORDERED: Insulin Human Regular 10 UNIT in 0.9 % Sodium Chloride 10 ML IV ONE (07:44)
[2021-03-04] MEDS ORDERED: *HR* Dextrose 50 % in Water (Vial) 50 ML VIAL IVP ONE (07:44)
[2021-03-04] MEDS: Doxycycline 100 MG CAPSULE PO SCH ×2 (09:06→20:14)
[2021-03-04] MEDS: predniSONE 20 MG TABLET PO SCH (09:06)
[2021-03-04] MEDS: Pantoprazole 40 MG VIAL IVP SCH (09:06)
[2021-03-04] MEDS: Chlorhexidine Rinse 15 ML MOUTHWASH MM SCH ×2 (09:06→20:14)
[2021-03-04] MEDS: SODIUM ZIRCONIUM CYCLOSILICATE 5 GM POWD.PACK PO SCH (09:07)
[2021-03-04] MEDS: Tiotropium 10 INH DOSE IH SCH (11:08)
[2021-03-04] MEDS: Dexmedetomidine HCl 400 MCG/100 ML MLS IVC SCH (16:09)
[2021-03-05] MEDS: Albuterol 2.5 MG/3 ML NEBULIZER IH SCH ×2 (03:44→08:13)
[2021-03-05] MEDS: *HR* Enoxaparin 30 MG/0.3 ML SYRINGE SQ SCH (05:11)
[2021-03-05] MEDS: Cefepime HCl 2,000 MG in Water for inj. (sterile) 20 ML IVP SCH (05:12)
[2021-03-05 06:19] LABS: Basophils % 0.2 %; Eosinophils % 0.1 %; Mean Corpuscular Volume 100.8 fL (83.0-100.0); Segmented Neutrophils % 81.2 %
[2021-03-05 06:20] LABS: Hematocrit 36.2 % (37.5-50.1); Lymphocytes # 0.9 K/mcL (0.6-4.6); Lymphocytes % 6.9 %; Mean Corpuscular HGB Conc 27.6 g/dL (31.6-35.5); Mean Corpuscular Hemoglobin 27.9 pg (28.0-33.3); Monocytes # 1.4 K/mcL (0.0-1.3); Monocytes % 10.6 %; Neutrophils # 10.5 K/mcL (1.6-8.9); Nucleated Red Blood Cells 0.3 /100 WBC (0); Platelet Count 264 K/mcL (140-400); Red Blood Count 3.59 M/mcL (4.19-5.50); Red Cell Distribution Width 14.3 % (11.5-14.5); White Blood Count 12.9 K/mcL (4.3-11.1)
[2021-03-05 06:43] LABS: Anisocytosis 1+ (Not Present); Platelet Estimate Normal (Normal)
[2021-03-05 06:48] LABS: BUN/Creatinine Ratio 94 (6-26); Blood Urea Nitrogen 50 mg/dL (8-23); Calcium 10.3 mg/dL (8.6-10.3); Carbon Dioxide 44 mEq/L (23-29); Chloride 94 mEq/L (98-107); Glucose 93 mg/dL (70-105); Magnesium 2.3 mg/dL (1.6-2.6); Osmolality,Calculated 305 (280-300); Phosphorous 3.8 mg/dL (2.7-4.5); Potassium 5.6 mEq/L (3.5-5.1); Sodium 141 mEq/L (136-145); eGFR For African Americans > 60 (> 60); eGFR For Non-African Americans > 60 (> 60)
[2021-03-05 06:59] VITALS: BP 107/72; TEMP 97.7
[2021-03-05] MEDS: Budesonide/Formoterol 160/4.5 1 PUFF INH IH SCH (08:14)
[2021-03-05] MEDS: Tiotropium 10 INH DOSE IH SCH (08:17)
[2021-03-05] MEDS: SODIUM ZIRCONIUM CYCLOSILICATE 5 GM POWD.PACK PO SCH (08:25)
[2021-03-05] MEDS: Doxycycline 100 MG CAPSULE PO SCH (08:25)
[2021-03-05] MEDS: Chlorhexidine Rinse 15 ML MOUTHWASH MM SCH (08:25)
[2021-03-05] MEDS: predniSONE 20 MG TABLET PO SCH (08:25)
[2021-03-05] MEDS ORDERED: Atropine 1% Opth Drops 100 DROP/5 ML BOTTLE SL PRN (09:52)
[2021-03-05] MEDS ORDERED: *HR* LORazepam 2 MG/ML VIAL IVP PRN (09:56)
[2021-03-05] MEDS ORDERED: Haloperidol Lactate 5 MG/ML VIAL IVP PRN (09:56)
[2021-03-05] MEDS: *HR* LORazepam 2 MG/ML VIAL IVP PRN (09:56)
[2021-03-05] MEDS: Pantoprazole 40 MG VIAL IVP SCH (09:57)
[2021-03-05] MEDS ORDERED: Morphine Sulfate 2 MG/ML SYRINGE IVP PRN ×2 (09:57→09:58)
[2021-03-05 12:53] VITALS: PULSE 71; O2SAT 86
== END 2021-03-05 13:12 | disposition expired | DRG 871 ==
LOC: 2NNU 04:25 → SUATTDRO 04:25 → ICNU 04:57 → 2NNU 02-28 16:12 → 2NENU 03-04 23:00
PROVIDERS: ADMIT Internal Medicine; ATTEND Internal Medicine